=== PATIENT | female | born 1935 | race Caucasian/White ===

== ENCOUNTER → 2016-05-26 | Outpatient (REF) | payer MEDICARE ==
[~2016-05-26] MED LIST: /GLYB5TA OR; /METO25TAB PO; /MIRT30TA OR; ACET65TA OR; ALBU17IN2 INH; ALLE25CA OR; AMLO5TAB2 PO; ARIC10TA PO; ASPI81TA83 OR; ASPI81TA85 PO; BACITAB3 PO; BISA10SU2 PR; CARV3.12; CARV6.25 PO; CELE40TA OR; COLA100C PO; FERR325T OR; FLEEENE4 PR; FOLI1TAB86 PO; FOSI10TA2 OR; FURO40TA2 OR; GLYB2.5T6 OR; INSULANT SC; LEVA250T PO; METF500T PO; MILKSUS OR; OMEP20TA7 OR; ROSU10TA OR; SYMB80AE IN; TYLE325T5 PO; ULTR50TA PO; lidoderm patch TD; vitamin B12 PO
[2016-05-26 12:08] LABS: ALBUMIN 3.7 GM/DL (3.2-5.2); ALBUMIN/GLOBULIN RATIO 1.12 (1.00-1.93); BILIRUBIN,TOTAL 0.2 MG/DL (0.2-1.0); CALCIUM LEVEL 9.8 MG/DL (8.8-10.2); CREATININE FOR GFR 2.06 MG/DL (0.55-1.02); GLOMERULAR FILTRATION RATE 24.7 (>32); POTASSIUM SERUM 4.9 MEQ/L (3.5-5.1)
== END ==
LOC: M SFHCPLAZ 11:12
PROVIDERS: ATTEND Internal Medicine
DX: E11.9 Type 2 diabetes mellitus without complications (principal); E78.00 Pure hypercholesterolemia, unspecified; N18.3 Chronic kidney disease, stage 3 (moderate)

== ENCOUNTER → 2016-06-12 | Outpatient (CLI) | payer MEDICARE ==
--- NOTE | 2016-06-12 12:43 | REP ---
MRI LUMBAR SPINE WITHOUT CONTRAST: HISTORY: Back pain. Decreased signal intensity on T2-weighted images is present in the lumbar intervertebral discs. The discs are decreased in height. These findings are consistent with disc degeneration. A diffuse disc bulge with associated osteophyte formation is present at the L1-2 level. There is hypertrophy of the ligamenta flava and posterior articulating facets. These findings produce mild central canal stenosis. There is compression of the left L1 nerve in the neural foramen. The right L1 nerve exits the neural foramen without compression. A diffuse disc bulge with associated osteophyte formation is present at the L2-3 level. There is hypertrophy of the ligamenta flava and posterior articulating facets. These findings produce severe central canal stenosis. The L2 nerves exit the neural foramina without compression. A diffuse disc bulge is present at the L3-4 level. There is hypertrophy of the ligamenta flava and posterior articulating facets. These findings produce moderate central canal stenosis. There is compression of the L3 nerves in the neural foramina. A diffuse disc bulge is present at the L4-5 level. There is hypertrophy of the ligamenta flava and posterior articulating facets. There are 6 mm of grade 1 spondylolisthesis of L4 on L5. These findings produce severe central canal stenosis. There is compression of the L4 nerves in the neural foramina. A diffuse disc bulge is present at the L5-S1 level. This abuts the thecal sac and S1 nerves. There is hypertrophy of the posterior articulating facets. The L5 nerves exit the neural foramina without compression. The conus medullaris is normal in appearance terminating at the level of the L1-2 intervertebral disc. Normal signal intensity is present in the lumbar vertebral bodies. IMPRESSION: 1. Mild central canal stenosis at the L1-2 level secondary to disc bulge, ligamentous and facet hypertrophy and osteophyte formation. There is compression of the left L1 nerve in the neural foramen. 2. Severe central canal stenosis at the L2-3 level secondary to disc bulge, ligamentous and facet hypertrophy and osteophyte formation. 3. Moderate central canal stenosis at the L3-4 level secondary to disc bulge, ligamentous and facet hypertrophy. There is compression of the L3 nerves in the neural foramina. 4. Severe central canal stenosis at the L4-5 level secondary to disc bulge, ligamentous and facet hypertrophy and grade 1 spondylolisthesis. There is compression of the L4 nerves in the neural foramina. 5. Diffuse disc bulge at the L5 S1 level. This abuts the thecal sac and S1 nerves. Signed by Osvaldo Marin MD 06/12/2016 12:49 P
== END ==
LOC: M RAD 11:08
PROVIDERS: ATTEND Internal Medicine
DX: M54.5 Low back pain (principal)

== ENCOUNTER → 2016-08-31 | Outpatient (REF) | payer MEDICARE ==
[~2016-08-31] MED LIST changes: -COLA100C PO; +COLA100C3 PO
[2016-08-31 11:38] LABS: MEAN CORPUSCULAR HEMOGLOBIN 29.2 pg (27.0-33.0); MEAN CORPUSCULAR HGB CONC 32.2 g/dl (32.0-36.5); MEAN CORPUSCULAR VOLUME 90.7 fl (80.0-96.0); RED CELL DISTRIBUTION WIDTH 13.6 % (11.5-14.5); WHITE BLOOD COUNT 7.7 K/mm3 (4.0-10.0)
[2016-08-31 12:02] LABS: ALBUMIN 3.5 GM/DL (3.2-5.2); ALBUMIN/GLOBULIN RATIO 1.13 (1.00-1.93); BILIRUBIN,TOTAL 0.2 MG/DL (0.2-1.0); CALCIUM LEVEL 9.4 MG/DL (8.8-10.2); CREATININE FOR GFR 2.09 MG/DL (0.55-1.02); GLOMERULAR FILTRATION RATE 24.3 (>32); POTASSIUM SERUM 4.7 MEQ/L (3.5-5.1); TOTAL PROTEIN 6.6 GM/DL (6.4-8.2)
== END ==
LOC: M SFHCPLAZ 09:16
PROVIDERS: ATTEND Internal Medicine
DX: Z86.2 Personal history of diseases of the blood and blood-forming organs and certain disorders involving the immune mechanism (principal); E11.9 Type 2 diabetes mellitus without complications; E78.00 Pure hypercholesterolemia, unspecified; N18.4 Chronic kidney disease, stage 4 (severe)

== ENCOUNTER → 2016-12-13 | Outpatient (CLI) | payer MEDICARE ==
[~2016-12-13] MED LIST changes: +BACITAB PO; -BACITAB3 PO; -COLA100C3 PO; +COLA100C5 PO; +FOLI800C PO; +GLIP10TA6 PO; +LEVA1TAB PO; -LEVA250T PO; +METO1TAB32 PO; +NITR0.4S14 SL; +PANT40TA2 PO; +ROCA0.5C PO; +TOUJ1.2I; -ULTR50TA PO; +ULTR50TA8 PO
--- NOTE | 2016-12-13 11:34 | REP ---
Clinical: Diabetes. Technique: PA and lateral. Comparison: 07/14/2013. Findings: Mediastinum and cardiac silhouette are stable. Evidence of prior sternotomy, CABG, and aortic valve repair along with mild cardiomegaly. Lung marion demonstrate chronic changes. Blunting to the diaphragmatic surfaces and costophrenic angles may represent chronic changes however subtle small acute pleural reactions cannot be excluded. No focal consolidation. No pneumothorax. Skeletal structures demonstrate osteopenia and degenerative changes. Impression: Likely chronic changes as described above. If the patient is symptomatic consider chest CT for further investigation. Signed by Bay Mckay MD 12/13/2016 11:25 A
[2016-12-13 12:29] LABS: CALCIUM LEVEL 9.9 MG/DL (8.8-10.2); CREATININE FOR GFR 2.08 MG/DL (0.55-1.02); GLOMERULAR FILTRATION RATE 24.3 (>32); POTASSIUM SERUM 4.9 MEQ/L (3.5-5.1)
--- NOTE | 2016-12-13 18:25 | ECGEPIP ---
Stationary ECG Study [facility] Test Date: 2016-12-13 Pat Name: VANDA CLAY Department: OP Room: - Gender: F [employer] Division: [place] : 1935 Requested By: Santosh Hess Order Number: [id number] Reading MD: Daniel Perez Measurements Intervals [place] Rate: 58 P: 102 CA: 174 QRS: 109 QRSD: 137 T: 88 QT: 472 QTc: 465 Interpretive Statements Sinus bradycardia with sinus arrhythmia Left bundle branch block Slower heart rate and arrhythmia improved since prior tracing of 03/29/2014 Electronically Signed On 12-13-2016 18:25:02 EDT by Daniel Perez
== END ==
LOC: M LAB 10:46
PROVIDERS: ATTEND Ophthalmology
DX: E11.9 Type 2 diabetes mellitus without complications (principal)

== ENCOUNTER → 2016-12-20 | Outpatient (REF) | payer MEDICARE ==
[2016-12-20 18:46] LABS: MAGNESIUM LEVEL 1.2 MG/DL (1.8-2.4)
== END ==
LOC: M SFHCPLAZ 14:45
PROVIDERS: ATTEND Internal Medicine
DX: I12.9 Hypertensive chronic kidney disease with stage 1 through stage 4 chronic kidney disease, or unspecified chronic kidney disease (principal); E11.9 Type 2 diabetes mellitus without complications; N18.4 Chronic kidney disease, stage 4 (severe)
CPT/HCPCS: 36415; 82043; 83036; 83735; 83970; G0463

== ENCOUNTER 2017-01-11 13:33 | Day surgery (SDC) | payer MEDICARE ==
[~2017-01-11] VITALS: Ht 152.4 cm; Wt 68.0 kg
[~2017-01-11 13:33] MED LIST changes: +ACETAMINOPHEN 325 MG TAB PO PRN; +OFLOXACIN 0.3 % (OCUFLOX) OPTH SOL 5ML OS ONE; +PHENYLEPHRINE 2.5% OPHTH SOL 2ML OS ONE; +PROPARACAINE 0.5% OPHTH SOL 15ML OS ONE; +TROPICAMIDE 1% OPHTH SOLN 2ML OS ONE
[2017-01-11] MEDS ORDERED: LR 500 ML IV ONE (13:45)
[2017-01-11] MEDS ORDERED: TRIMETHOBENZAMIDE 300 MG CAP PO PRN (13:45)
[2017-01-11] MEDS ORDERED: MIDAZOLAM INJ 2 MG/2 ML VIAL (J2250) As Ordered ONE (14:42)
[2017-01-11] MEDS ORDERED: fentaNYL 100 MCG/2 ML INJECTION (J3010) As Ordered ONE (14:43)
[2017-01-11] MEDS ORDERED: BALANCED SALT IRRIGATION SOLUTION 500ML BAG (FOR OR EYE MACHINE) As Ordered ONE (14:55)
[2017-01-11] MEDS ORDERED: ACETYLCHOLINE OPHTH SOLN 1% 2ML (MIOCHOL-E) As Ordered ONE (14:55)
[2017-01-11] MEDS ORDERED: POVIDONE-IODINE 5% OPHTH PREP SOL 30ML As Ordered ONE (14:55)
[2017-01-11] MEDS ORDERED: DUOVISC (0.50ML VISCOAT/0.55ML PROVISC) OPHTH KIT As Ordered ONE ×2 (14:56→15:16)
[2017-01-11] MEDS ORDERED: LIDOCAINE 0.75%/EPINEPHRINE 0.025% IN BSS 1ML SYR INTRACAMERAL (OR ONLY) As Ordered ONE (14:56)
[2017-01-11] MEDS ORDERED: TRYPAN BLUE 0.06 % 2.25 ML OPHTH SYR (VISIONBLUE) As Ordered ONE ×2 (14:56→15:13)
[2017-01-11] MEDS ORDERED: KETAMINE HCL 200 MG/20 ML VIAL As Ordered ONE (15:30)
[2017-01-11 17:15] VITALS: BP 124/60
--- NOTE | 2017-01-15 08:02 | RO ---
DATE OF PROCEDURE: 01/11/2017 PREOPERATIVE DIAGNOSES: 1. Hypermature dense visually significant nuclear sclerotic cataract of the left eye. 2. Small pupil, left eye POSTOPERATIVE DIAGNOSES: 1. Hypermature dense visually significant nuclear sclerotic cataract of the left eye. 2. Small pupil, left eye PROCEDURE: Complex cataract extraction with placement of intraocular lens implant, AU00T0, 20.0 diopters, with use of Malyugin ring and trypan blue SURGEON: Benoit Irby DO PSYCH NURSE: ANESTHESIA: Local with MAC DESCRIPTION OF PROCEDURE: Patient was seen in the preoperative area. The consents were reviewed and the correct eye was marked. At that time, the patient received topical dilating drops and antibiotics to the left eye and the patient was transferred to the operating room. The eye was prepped and draped in the sterile fashion. Tegaderm tape was used to isolate the upper and lower eyelids and a wire lid speculum was used to retract the eyelids. At that time, a 1.0 mm paracentesis incision was made. Intraocular preservative free lidocaine was placed in the eye. Trypan blue was placed in the eye, and the BSS was used to clear the trypan blue. Appropriate staining of the anterior capsule was noted. Viscoelastic was then placed into the anterior chamber and a 2.4 mm temporal clear corneal incision was performed. At that time, a 7.0 mm Malyugin ring was placed to expand the pupil without difficulty. A bent 27 gauge cystitome was used to create a opening into the anterior capsule. At that time, capsulorrhexis forceps were used to carefully perform a continuous curvilinear capsulorrhexis, however visualization was poor and there were some minor anterior capsular tears noted. The decision was made to not perform hydrodissection. Phacoemulsification then pursued without difficulty, removing the dense crystalline lens. After the lens was removed, careful inspection of the capsular bag revealed an intact posterior capsule with small anterior capsular tear at 5 o'clock and 11 o'clock, but the remainder of the bag remained intact. There was no residual cortex. Viscoelastic was then injected carefully within the capsular bag and an AU00T0 20.0 diopter lens was injected within the capsular bag and then positioned appropriately. A single #10-0 nylon suture was placed in the temporal clear corneal incision. Bimanual irrigation and aspiration was used to remove the remaining viscoelastic from the anterior chamber. Miochol was placed showing a moderately small pupil and then BSS was used to hydrate the temporal clear corneal incision as well as the two paracentesis incisions. The patient tolerated the procedure well and was discharged to the postanesthesia care unit (PACU) in a stable condition. SILKE
== END 2017-01-11 17:10 | disposition home or self-care (01) ==
LOC: M SDC 13:33
PROVIDERS: ATTEND Ophthalmology
DX: H25.12 Age-related nuclear cataract, left eye (principal); H57.03 Miosis; E78.5 Hyperlipidemia, unspecified; E11.21 Type 2 diabetes mellitus with diabetic nephropathy; I25.10 Atherosclerotic heart disease of native coronary artery without angina pectoris; I25.2 Old myocardial infarction; I12.9 Hypertensive chronic kidney disease with stage 1 through stage 4 chronic kidney disease, or unspecified chronic kidney disease; D50.9 Iron deficiency anemia, unspecified; M12.9 Arthropathy, unspecified; R29.898 Other symptoms and signs involving the musculoskeletal system; M81.0 Age-related osteoporosis without current pathological fracture; F03.90 Unspecified dementia, unspecified severity, without behavioral disturbance, psychotic disturbance, mood disturbance, and anxiety; J44.9 Chronic obstructive pulmonary disease, unspecified; R06.02 Shortness of breath; M51.9 Unspecified thoracic, thoracolumbar and lumbosacral intervertebral disc disorder; N18.4 Chronic kidney disease, stage 4 (severe); R63.0 Anorexia; F41.9 Anxiety disorder, unspecified; F32.9 Major depressive disorder, single episode, unspecified; E78.00 Pure hypercholesterolemia, unspecified; I50.30 Unspecified diastolic (congestive) heart failure; L97.921 Non-pressure chronic ulcer of unspecified part of left lower leg limited to breakdown of skin; R10.30 Lower abdominal pain, unspecified; Z88.0 Allergy status to penicillin; Z88.2 Allergy status to sulfonamides; Z79.899 Other long term (current) drug therapy; Z79.82 Long term (current) use of aspirin; Z95.4 Presence of other heart-valve replacement; Z87.891 Personal history of nicotine dependence; Z96.653 Presence of artificial knee joint, bilateral; Z96.642 Presence of left artificial hip joint
CPT/HCPCS: 66982; J2250; J3010; V2632

== ENCOUNTER → 2017-02-01 | Outpatient (CLI) | payer MEDICARE ==
[~2017-02-01] MED LIST changes: -ACETAMINOPHEN 325 MG TAB PO PRN; -OFLOXACIN 0.3 % (OCUFLOX) OPTH SOL 5ML OS ONE; -PHENYLEPHRINE 2.5% OPHTH SOL 2ML OS ONE; -PROPARACAINE 0.5% OPHTH SOL 15ML OS ONE; -TROPICAMIDE 1% OPHTH SOLN 2ML OS ONE
--- NOTE | 2017-02-01 16:34 | REP ---
PA and lateral chest: Comparisons are 12/13/2078 06/19/2013. There is chronic blunting of the costophrenic angles, unchanged. This could be from pleural adhesions or chronic pleural effusions. The lung marion are clear and unchanged. Cardiac size is upper normal, unchanged. There are sternotomy wires and cardiac valve replacement, unchanged. Impression: There are chronic findings as described. No acute cardiopulmonary findings. Signed by Rolando Rothman MD 02/01/2017 04:25 P
== END ==
LOC: M RAD 15:45
PROVIDERS: ATTEND Physician Assistant Medical
DX: I50.21 Acute systolic (congestive) heart failure (principal); R93.8 Abnormal findings on diagnostic imaging of other specified body structures

== ENCOUNTER → 2017-02-01 | Outpatient (REF) | payer MEDICARE ==
[2017-02-01 18:42] LABS: MEAN CORPUSCULAR HEMOGLOBIN 29.6 pg (27.0-33.0); MEAN CORPUSCULAR HGB CONC 32.4 g/dl (32.0-36.5); MEAN CORPUSCULAR VOLUME 91.4 fl (80.0-96.0); PLATELET COUNT, AUTOMATED 218 10^3/uL (150-450); RED CELL DISTRIBUTION WIDTH 13.3 % (11.5-14.5); WHITE BLOOD COUNT 12.4 10^3/uL (4.0-10.0)
[2017-02-01 19:38] LABS: CALCIUM LEVEL 10.5 MG/DL (8.8-10.2); CREATININE FOR GFR 2.82 MG/DL (0.55-1.02); GLOMERULAR FILTRATION RATE 17.1 (>32); POTASSIUM SERUM 4.5 MEQ/L (3.5-5.1)
== END ==
LOC: M SFHCPLAZ 17:28
PROVIDERS: ATTEND Physician Assistant Medical
DX: I50.21 Acute systolic (congestive) heart failure (principal)

== ENCOUNTER → 2017-02-12 | Outpatient (REF) | payer MEDICARE ==
[2017-02-12 14:48] LABS: CALCIUM LEVEL 9.5 MG/DL (8.8-10.2); CREATININE FOR GFR 2.18 MG/DL (0.55-1.02); POTASSIUM SERUM 5.1 MEQ/L (3.5-5.1)
== END ==
LOC: M SFHCPLAZ 12:08
PROVIDERS: ATTEND Internal Medicine
DX: N18.4 Chronic kidney disease, stage 4 (severe) (principal)
CPT/HCPCS: 80048; G0463

== ENCOUNTER → 2017-03-29 | Day surgery (SDC) | payer MEDICARE ==
[~2017-03-29] VITALS: Ht 152.4 cm; Wt 65.7 kg
[~2017-03-29] MED LIST changes: +ACETAMINOPHEN 325 MG TAB PO PRN; +ACETYLCHOLINE OPHTH SOLN 1% 2ML (MIOCHOL-E) As Ordered ONE; +BALANCED SALT IRRIGATION SOLUTION 500ML BAG (FOR OR EYE MACHINE) As Ordered ONE; +CEFUROXIME 1MG/0.1ML INTRACAMERAL INJ As Ordered ONE; +DUOVISC (0.50ML VISCOAT/0.55ML PROVISC) OPHTH KIT As Ordered ONE; +LIDOCAINE 0.75%/EPINEPHRINE 0.025% IN BSS 1ML SYR INTRACAMERAL (OR ONLY) As Ordered ONE; +LIDOCAINE 1% SDV 5 ML VIAL As Ordered ONE; +MIDAZOLAM INJ 2 MG/2 ML VIAL (J2250) As Ordered ONE; +OFLOXACIN 0.3 % (OCUFLOX) OPTH SOL 5ML OD ONE; +PHENYLEPHRINE 2.5% OPHTH SOL 2ML OD ONE; +POVIDONE-IODINE 5% OPHTH PREP SOL 30ML As Ordered ONE; +PROPARACAINE 0.5% OPHTH SOL 15ML OD ONE; -TOUJ1.2I; +TOUJ1.2I SC; +TRIMETHOBENZAMIDE 300 MG CAP PO PRN; +TROPICAMIDE 1% OPHTH SOLN 2ML OD ONE; +fentaNYL 100 MCG/2 ML INJECTION (J3010) As Ordered ONE
[2017-03-29 09:05] VITALS: BP 123/63
--- NOTE | 2017-03-31 23:39 | RO ---
DATE OF PROCEDURE: 03/29/2017 PREOPERATIVE DIAGNOSIS: Visually significant nuclear sclerotic cataract right eye. POSTOPERATIVE DIAGNOSIS: Visually significant nuclear sclerotic cataract right eye. PROCEDURE: Cataract extraction with use of phacoemulsification and placement of intraocular lens, AU00T0 ,19.5 right eye. SURGEON: Benoit Irby DO TO[employer] BRIDGE OPERATOR: ANESTHESIA: Local with monitored anesthesia care (MAC). COMPLICATIONS: None. POSTOPERATIVE CONDITION: Stable. INDICATION FOR SURGERY: Blurred vision right eye affecting patient's activities of daily living. DESCRIPTION OF PROCEDURE: The patient was seen in the preoperative area and properly identified. The correct operative eye was identified and marked. Attention was turned to that eye. The patient received topical antibiotics in the preoperative area. The patient then received topical dilating drops consisting of tropicamide and phenylephrine. The patient was then transferred to the operating room. The correct side was re-identified. The patient received topical anesthetics and antibiotics on the surface of the eye. The eye was prepped and draped in a sterile fashion. The upper and lower eyelids were isolated with Tegaderm tape, and the lids were held open with an adjustable speculum. Using a sideport blade, a paracentesis incision was made. Intraocular preservative-free lidocaine was then injected into the anterior chamber. Viscoelastic was then injected into the anterior chamber through the paracentesis. Using a 2.4 mm sharp-tipped keratome, the anterior chamber was entered via a temporal clear corneal incision. A continuous curvilinear capsulorrhexis was created with the aid of a 26-gauge cystotome and Utrata forceps. Hydrodissection was performed with balanced salt solution (BSS) on a blunt cannula until the nucleus was freely mobile. The crystalline lens was phacoemulsified and aspirated. Additional cohesive viscoelastic was placed into the capsular bag to deepen it. A 19.5 lens was placed into the capsular bag and confirmed by visualizing the continuous curvilinear capsulorrhexis. Additional irrigation and aspiration was used to remove cortical material and remaining viscoelastic. The clear corneal incision was hydrated with BSS on a blunt cannula. The lens was well positioned. The incisions were then tested for leaks and found to be negative. The eye was then palpated for appropriate pressure and adjusted accordingly with BSS. The eyelid speculum was carefully removed. A shield was placed over the eye. The patient tolerated the procedure well and was discharged to the recovery unit in a stable condition. [facility]
--- NOTE | 2017-04-03 13:56 | RO ---
DATE OF PROCEDURE: 03/29/2017 PREOPERATIVE DIAGNOSIS: Visually significant nuclear sclerotic cataract right eye. POSTOPERATIVE DIAGNOSIS: Visually significant nuclear sclerotic cataract right eye. PROCEDURE: Cataract extraction with use of phacoemulsification and placement of intraocular lens, AU00T0 19.5, right eye. SURGEON: Benoit Irby DO RAG SHREDDER: ANESTHESIA: Local with monitored anesthesia care (MAC). COMPLICATIONS: None. POSTOPERATIVE CONDITION: Stable. INDICATION FOR SURGERY: Blurred vision right eye affecting patient's activities of daily living. DESCRIPTION OF PROCEDURE: The patient was seen in the preoperative area and properly identified. The correct operative eye was identified and marked. Attention was turned to that eye. The patient received topical antibiotics in the preoperative area. The patient then received topical dilating drops consisting of tropicamide and phenylephrine. The patient was then transferred to the operating room. The correct side was re-identified. The patient received topical anesthetics and antibiotics on the surface of the eye. The eye was prepped and draped in a sterile fashion. The upper and lower eyelids were isolated with Tegaderm tape, and the lids were held open with an adjustable speculum. Using a sideport blade, a paracentesis incision was made. Intraocular preservative-free lidocaine was then injected into the anterior chamber. Viscoelastic was then injected into the anterior chamber through the paracentesis. Using a 2.4 mm sharp-tipped keratome, the anterior chamber was entered via a temporal clear corneal incision. A continuous curvilinear capsulorrhexis was created with the aid of a 26-gauge cystotome and Utrata forceps. Hydrodissection was performed with balanced salt solution (BSS) on a blunt cannula until the nucleus was freely mobile. The crystalline lens was phacoemulsified and aspirated. Additional cohesive viscoelastic was placed into the capsular bag to deepen it. An AU00T0 lens was placed into the capsular bag and confirmed by visualizing the continuous curvilinear capsulorrhexis. Additional irrigation and aspiration was used to remove cortical material and remaining viscoelastic. The clear corneal incision was hydrated with BSS on a blunt cannula. The lens was well positioned. The incisions were then tested for leaks and found to be negative. The eye was then palpated for appropriate pressure and adjusted accordingly with BSS. The eyelid speculum was carefully removed. A shield was placed over the eye. The patient tolerated the procedure well and was discharged to the recovery unit in a stable condition. [facility]
== END | disposition home or self-care (01) ==
LOC: M SDC 07:03
PROVIDERS: ATTEND Ophthalmology
DX: H25.11 Age-related nuclear cataract, right eye (principal); I25.10 Atherosclerotic heart disease of native coronary artery without angina pectoris; I25.2 Old myocardial infarction; I11.0 Hypertensive heart disease with heart failure; I12.9 Hypertensive chronic kidney disease with stage 1 through stage 4 chronic kidney disease, or unspecified chronic kidney disease; E78.00 Pure hypercholesterolemia, unspecified; E11.22 Type 2 diabetes mellitus with diabetic chronic kidney disease; K21.9 Gastro-esophageal reflux disease without esophagitis; D64.9 Anemia, unspecified; M12.9 Arthropathy, unspecified; M51.9 Unspecified thoracic, thoracolumbar and lumbosacral intervertebral disc disorder; R29.898 Other symptoms and signs involving the musculoskeletal system; M81.0 Age-related osteoporosis without current pathological fracture; F41.9 Anxiety disorder, unspecified; F03.90 Unspecified dementia, unspecified severity, without behavioral disturbance, psychotic disturbance, mood disturbance, and anxiety; F32.9 Major depressive disorder, single episode, unspecified; J44.9 Chronic obstructive pulmonary disease, unspecified; N18.4 Chronic kidney disease, stage 4 (severe); D50.9 Iron deficiency anemia, unspecified; R63.0 Anorexia; Z88.0 Allergy status to penicillin; Z88.1 Allergy status to other antibiotic agents; Z88.2 Allergy status to sulfonamides; Z79.899 Other long term (current) drug therapy; Z79.82 Long term (current) use of aspirin; Z87.19 Personal history of other diseases of the digestive system; Z95.5 Presence of coronary angioplasty implant and graft; Z95.4 Presence of other heart-valve replacement; Z87.891 Personal history of nicotine dependence; Z96.653 Presence of artificial knee joint, bilateral; Z87.09 Personal history of other diseases of the respiratory system
CPT/HCPCS: 66984; J2250; J3010; V2632

== ENCOUNTER → 2017-04-27 | Outpatient (REF) | payer MEDICARE ==
[2017-04-27 12:02] LABS: HEMATOCRIT 39.1 % (36.0-47.0); HEMOGLOBIN 12.5 g/dl (12.0-16.0); MEAN CORPUSCULAR HEMOGLOBIN 28.5 pg (27.0-33.0); MEAN CORPUSCULAR VOLUME 89.3 fl (80.0-96.0); PLATELET COUNT, AUTOMATED 254 10^3/uL (150-450); RED BLOOD COUNT 4.38 10^6/uL (4.00-5.40); RED CELL DISTRIBUTION WIDTH 12.8 % (11.5-14.5); WHITE BLOOD COUNT 11.5 10^3/uL (4.0-10.0)
[2017-04-27 12:23] LABS: ALBUMIN 3.6 GM/DL (3.2-5.2); ALBUMIN/GLOBULIN RATIO 0.95 (1.00-1.93); ALKALINE PHOSPHATASE 87 U/L (45-117); ALT/SGPT 12 U/L (12-78); ANION GAP 8 MEQ/L (8-16); AST/SGOT 13 U/L (7-37); BILIRUBIN,TOTAL 0.3 MG/DL (0.2-1.0); BLOOD UREA NITROGEN 56 MG/DL (7-18); CALCIUM LEVEL 10.6 MG/DL (8.8-10.2); CARBON DIOXIDE LEVEL 30 MEQ/L (21-32); CHLORIDE LEVEL 100 MEQ/L (98-107); CHOLESTEROL LEVEL 180 MG/DL (<200); CHOLESTEROL RISK RATIO 5.294 (<5); GLOMERULAR FILTRATION RATE 20.6 (>32); GLUCOSE, FASTING 281 MG/DL (83-110); HDL CHOLESTEROL 34 MG/DL (>40); MAGNESIUM LEVEL 1.5 MG/DL (1.8-2.4); NON-HDL-C 146 MG/DL; POTASSIUM SERUM 5.1 MEQ/L (3.5-5.1); SODIUM LEVEL 138 MEQ/L (136-145); TOTAL PROTEIN 7.4 GM/DL (6.4-8.2); TRIGLYCERIDES LEVEL 340 MG/DL (<150)
[2017-04-27 12:48] LABS: PTH INTACT 59.6 PG/ML (14.0-72.0); VITAMIN B12 LEVEL 1060 PG/ML (247-911)
[2017-04-27 13:11] LABS: ESTIMATED AVERAGE GLUCOSE 220 MG/DL (60-110); HEMOGLOBIN A1c 9.3 %
== END ==
LOC: M SFHCPLAZ 10:13
DX: E11.21 Type 2 diabetes mellitus with diabetic nephropathy (principal); E11.22 Type 2 diabetes mellitus with diabetic chronic kidney disease; I12.9 Hypertensive chronic kidney disease with stage 1 through stage 4 chronic kidney disease, or unspecified chronic kidney disease; N18.4 Chronic kidney disease, stage 4 (severe); J44.9 Chronic obstructive pulmonary disease, unspecified; E78.00 Pure hypercholesterolemia, unspecified; E53.8 Deficiency of other specified B group vitamins; F03.90 Unspecified dementia, unspecified severity, without behavioral disturbance, psychotic disturbance, mood disturbance, and anxiety
CPT/HCPCS: 83735

== ENCOUNTER 2017-05-28 22:39 | Observation (INO) | payer MEDICARE ==
[2017-05-29] MEDS: NS 500 ML IV ×2
[2017-05-29 00:22] LABS: BASO % 0.1 % (0.0-1.0); EOS % 0.2 % (0.0-3.0); HEMOGLOBIN 13.5 g/dl (12.0-16.0); IMMATURE GRANULOCYTE % 0.5 % (0-3.0); LYMPH # 0.5 10^3/uL (1.5-4.5); LYMPH % 4.5 % (24.0-44.0); MEAN CORPUSCULAR HEMOGLOBIN 29.1 pg (27.0-33.0); MEAN CORPUSCULAR HGB CONC 32.1 g/dl (32.0-36.5); MEAN CORPUSCULAR VOLUME 90.5 fl (80.0-96.0); MONO # 0.1 10^3/uL (0.0-0.8); MONO % 0.5 % (0.0-5.0); NEUTROPHILS # 10.6 10^3/uL (1.8-7.7); NEUTROPHILS % 94.2 % (36.0-66.0); PLATELET COUNT, AUTOMATED 184 10^3/uL (150-450); RED BLOOD COUNT 4.64 10^6/uL (4.00-5.40); RED CELL DISTRIBUTION WIDTH 13.1 % (11.5-14.5); WHITE BLOOD COUNT 11.3 10^3/uL (4.0-10.0)
[2017-05-29 00:28] LABS: ALBUMIN 3.8 GM/DL (3.2-5.2); ALBUMIN/GLOBULIN RATIO 1.09 (1.00-1.93); ALKALINE PHOSPHATASE 101 U/L (45-117); ALT/SGPT 11 U/L (12-78); ANION GAP 12 MEQ/L (8-16); AST/SGOT 17 U/L (7-37); BILIRUBIN,DIRECT 0.2 MG/DL (0.0-0.2); BILIRUBIN,TOTAL 0.5 MG/DL (0.2-1.0); BLOOD UREA NITROGEN 48 MG/DL (7-18); CALCIUM LEVEL 9.9 MG/DL (8.8-10.2); CARBON DIOXIDE LEVEL 25 MEQ/L (21-32); CHLORIDE LEVEL 103 MEQ/L (98-107); CREATININE FOR GFR 2.65 MG/DL (0.55-1.30); FREE THYROXINE INDEX 2.4 % (1.3-4.8); GLOMERULAR FILTRATION RATE 18.4 (>32); GLUCOSE, FASTING 255 MG/DL (70-100); POTASSIUM SERUM 4.4 MEQ/L (3.5-5.1); SODIUM LEVEL 140 MEQ/L (136-145); T UPTAKE 33 % (30-39); THYROXINE (T4) 7.4 UG/DL (4.5-12.0); TOTAL PROTEIN 7.3 GM/DL (6.4-8.2)
[2017-05-29 00:28] LABS: AMMONIA 26 uMOL/L (<32)
[2017-05-29 00:46] LABS: AMORPHOUS SEDIMENT MODERATE (NEGATIVE); APPEARANCE, URINE CLOUDY (CLEAR); BACTERIA, URINE AUTO NEGATIVE (NEGATIVE); BILIRUBIN, URINE AUTO NEGATIVE (NEGATIVE); BLOOD, URINE BLOOD NEGATIVE (NEGATIVE); COLOR, URINE YELLOW (YELLOW); GLUCOSE, URINE (UA) AUTO 1+ mg/dL (NEGATIVE); KETONE, URINE AUTO NEGATIVE (NEGATIVE); LEUKOCYTE ESTERASE, URINE AUTO NEGATIVE (NEGATIVE); MUCUS, URINE SMALL (NEGATIVE); NITRITE, URINE AUTO NEGATIVE (NEGATIVE); PROTEIN, URINE AUTO 2+ mg/dL (NEGATIVE); RBC, URINE AUTO 0 /HPF (0-3); SPECIFIC GRAVITY URINE AUTO 1.015 (1.002-1.035); SQUAMOUS EPITHELIAL CELL UR AU 0 /HPF (0-6); UROBILINOGEN, URINE AUTO 0.2 mg/dL (0.0-2.0); WBC, URINE AUTO 1 /HPF (0-3)
[2017-05-29 01:19] LABS: ABG BASE EXCESS -2.1 (-2.0-2.0); ABG HCO3 22.2 MEQ/L (22.0-26.0); ABG O2 SATURATION 94.8 % (95.0-99.0); ABG PARTIAL PRESSURE CO2 36.2 mmHg (35.0-45.0); ABG STANDARD HCO3 22.7 MEQ/L (22.0-26.0); ABG TOTAL CO2 23.3 MEQ/L (23.0-31.0); ABG pH (ARTERIAL) 7.405 UNITS (7.350-7.450)
[2017-05-29 01:34] LABS: INFLUENZA A AMPLIFICATION NEGATIVE (NEGATIVE); INFLUENZA B AMPLIFICATION NEGATIVE (NEGATIVE)
[2017-05-29] MEDS ORDERED: GLUCAGON FOR INJ 1 MG VIAL (J1610) SC ×2 (02:30)
[2017-05-29] MEDS ORDERED: ALBUTEROL SULFATE 2.5 MG/0.5 ML INH NEB SOLN INH ×2 (02:30)
[2017-05-29] MEDS ORDERED: GLUCOSE 4 GM CHEW TABLET PO ×2 (02:30)
[2017-05-29] MEDS: NS 1,000 ML IV ×2 (02:30)
[2017-05-29] MEDS ORDERED: DEXTROSE 50% 50 ML SYRINGE IV ×2 (02:30)
[2017-05-29] MEDS ORDERED: NITROGLYCERIN 0.3 MG SUBL TAB SL ×2 (03:00)
[2017-05-29] MEDS ORDERED: POLYVINYL ALCOHOL OPHTH SOLN 15 ML(LIQUITEARS) OU ×2 (03:00)
[2017-05-29 04:12] LABS: LACTIC ACID SEPSIS PROTOCOL 4.1 MMOL/L (0.4-2.0)
[2017-05-29] MEDS: HEPARIN SOD (PORCINE) 5000 UNITS/ML VIAL SC ×6 (06:29→22:32)
[2017-05-29 07:23] LABS: LACTIC ACID SEPSIS PROTOCOL 1.4 MMOL/L (0.4-2.0)
[2017-05-29 09:07] LABS: BEDSIDE GLUCOSE 257 MG/DL (83-110)
[2017-05-29] MEDS: HumaLOG INSULIN (NovoLOG) PER UNIT SC ×8 (09:22→21:00)
[2017-05-29] MEDS: LEVEMIR (INSULIN DETEMIR) 1 UNITS/0.01ML SC ×2 (09:22)
[2017-05-29] MEDS: CALCITRIOL 0.25 MCG CAP (S0169) PO ×2 (09:22)
[2017-05-29] MEDS: PANTOPRAZOLE 40MG TAB (PROTONIX) PO ×2 (09:23)
[2017-05-29] MEDS: METOPROLOL SUCC *XL* 25MG TAB (TopROL *XL*) PO ×2 (09:23)
[2017-05-29] MEDS: CitaloPRAM (CeleXA) 20 MG TAB PO ×2 (09:23)
[2017-05-29] MEDS: CYANOCOBALAMIN 500 MCG TAB PO ×2 (09:24)
[2017-05-29] MEDS: ASPIRIN 81 MG ENTERIC TAB PO ×2 (09:24)
[2017-05-29] MEDS: ACETAMINOPHEN TAB 650MG DOSE (2X325MG) PO ×4 (10:06→22:32)
[2017-05-29 12:03] LABS: ANION GAP 11 MEQ/L (8-16); BLOOD UREA NITROGEN 49 MG/DL (7-18); CALCIUM LEVEL 9.3 MG/DL (8.8-10.2); CARBON DIOXIDE LEVEL 25 MEQ/L (21-32); CHLORIDE LEVEL 102 MEQ/L (98-107); CREATININE FOR GFR 2.73 MG/DL (0.55-1.30); GLOMERULAR FILTRATION RATE 17.8 (>32); GLUCOSE, FASTING 250 MG/DL (70-100); POTASSIUM SERUM 4.3 MEQ/L (3.5-5.1); SODIUM LEVEL 138 MEQ/L (136-145)
[2017-05-29] MEDS: ROSUVASTATIN 10 MG TAB (CRESTOR) PO ×2 (22:33)
[2017-05-29] MEDS: DONEPEZIL 5 MG TAB PO ×2 (22:33)
[2017-05-30] MEDS: HEPARIN SOD (PORCINE) 5000 UNITS/ML VIAL SC ×6 (05:34→21:38)
[2017-05-30 05:59] LABS: BEDSIDE GLUCOSE 158 MG/DL (83-110)
[2017-05-30 05:59] LABS: BEDSIDE GLUCOSE 244 MG/DL (83-110)
[2017-05-30 05:59] LABS: BEDSIDE GLUCOSE 76 MG/DL (83-110)
[2017-05-30 05:59] LABS: BEDSIDE GLUCOSE 213 MG/DL (83-110)
[2017-05-30 07:10] LABS: BASO % 0.1 % (0.0-1.0); EOS % 0.4 % (0.0-3.0); HEMATOCRIT 33.5 % (36.0-47.0); IMMATURE GRANULOCYTE % 0.6 % (0-3.0); LYMPH # 0.8 10^3/uL (1.5-4.5); LYMPH % 12.1 % (24.0-44.0); MEAN CORPUSCULAR HEMOGLOBIN 29.1 pg (27.0-33.0); MEAN CORPUSCULAR HGB CONC 32.2 g/dl (32.0-36.5); MEAN CORPUSCULAR VOLUME 90.3 fl (80.0-96.0); MONO # 0.5 10^3/uL (0.0-0.8); MONO % 6.5 % (0.0-5.0); NEUTROPHILS # 5.6 10^3/uL (1.8-7.7); NEUTROPHILS % 80.3 % (36.0-66.0); PLATELET COUNT, AUTOMATED 116 10^3/uL (150-450); RED BLOOD COUNT 3.71 10^6/uL (4.00-5.40); RED CELL DISTRIBUTION WIDTH 13.2 % (11.5-14.5); WHITE BLOOD COUNT 6.9 10^3/uL (4.0-10.0)
[2017-05-30 07:17] LABS: HEMOGLOBIN 10.8 g/dl (12.0-16.0)
[2017-05-30 07:28] LABS: ANION GAP 8 MEQ/L (8-16); BLOOD UREA NITROGEN 46 MG/DL (7-18); CALCIUM LEVEL 9.3 MG/DL (8.8-10.2); CARBON DIOXIDE LEVEL 24 MEQ/L (21-32); CHLORIDE LEVEL 108 MEQ/L (98-107); CREATININE FOR GFR 2.02 MG/DL (0.55-1.30); GLOMERULAR FILTRATION RATE 25.2 (>32); GLUCOSE, FASTING 85 MG/DL (70-100); MAGNESIUM LEVEL 1.7 MG/DL (1.8-2.4); POTASSIUM SERUM 3.9 MEQ/L (3.5-5.1); SODIUM LEVEL 140 MEQ/L (136-145)
[2017-05-30] MEDS: HumaLOG INSULIN (NovoLOG) PER UNIT SC ×8 (07:44→19:53)
[2017-05-30] MEDS: CYANOCOBALAMIN 500 MCG TAB PO ×2 (08:51)
[2017-05-30] MEDS: CALCITRIOL 0.25 MCG CAP (S0169) PO ×2 (08:51)
[2017-05-30] MEDS: CitaloPRAM (CeleXA) 20 MG TAB PO ×2 (08:51)
[2017-05-30] MEDS: LEVEMIR (INSULIN DETEMIR) 1 UNITS/0.01ML SC ×2 (08:51)
[2017-05-30] MEDS: PANTOPRAZOLE 40MG TAB (PROTONIX) PO ×2 (08:53)
[2017-05-30] MEDS: MAG SULF 1GM/100ML (MAG RUN) 1 GM in APPROPRIATE DILUENT 1 EA IV (08:54)
[2017-05-30] MEDS: ASPIRIN 81 MG ENTERIC TAB PO ×2 (08:54)
[2017-05-30] MEDS: METOPROLOL SUCC *XL* 25MG TAB (TopROL *XL*) PO ×2 (08:54)
[2017-05-30] MEDS: FUROSEMIDE 20 MG TAB PO ×2 (14:06)
[2017-05-30 17:44] LABS: BEDSIDE GLUCOSE 74 MG/DL (83-110)
[2017-05-30] MEDS: ACETAMINOPHEN TAB 650MG DOSE (2X325MG) PO ×2 (19:53)
[2017-05-30] MEDS: ROSUVASTATIN 10 MG TAB (CRESTOR) PO ×2 (19:58)
[2017-05-30] MEDS: DONEPEZIL 5 MG TAB PO ×2 (19:58)
[2017-05-30 22:12] LABS: BEDSIDE GLUCOSE 131 MG/DL (83-110)
[2017-05-31 00:19] LABS: BEDSIDE GLUCOSE 132 MG/DL (83-110)
[2017-05-31] MEDS: ACETAMINOPHEN TAB 650MG DOSE (2X325MG) PO ×2 (05:48)
[2017-05-31] MEDS: HEPARIN SOD (PORCINE) 5000 UNITS/ML VIAL SC ×2 (05:49)
[2017-05-31 07:12] LABS: BASO % 0.3 % (0.0-1.0); EOS # 0.2 10^3/uL (0.0-0.50); EOS % 2.6 % (0.0-3.0); HEMATOCRIT 36.5 % (36.0-47.0); HEMOGLOBIN 11.7 g/dl (12.0-16.0); IMMATURE GRANULOCYTE % 0.3 % (0-3.0); LYMPH # 0.9 10^3/uL (1.5-4.5); LYMPH % 14.8 % (24.0-44.0); MEAN CORPUSCULAR HEMOGLOBIN 29.2 pg (27.0-33.0); MEAN CORPUSCULAR HGB CONC 32.1 g/dl (32.0-36.5); MONO # 0.6 10^3/uL (0.0-0.8); MONO % 9.2 % (0.0-5.0); NEUTROPHILS # 4.4 10^3/uL (1.8-7.7); NEUTROPHILS % 72.8 % (36.0-66.0); PLATELET COUNT, AUTOMATED 132 10^3/uL (150-450); RED BLOOD COUNT 4.01 10^6/uL (4.00-5.40); RED CELL DISTRIBUTION WIDTH 13.2 % (11.5-14.5); WHITE BLOOD COUNT 6.1 10^3/uL (4.0-10.0)
[2017-05-31 07:46] LABS: ANION GAP 7 MEQ/L (8-16); BLOOD UREA NITROGEN 45 MG/DL (7-18); CARBON DIOXIDE LEVEL 28 MEQ/L (21-32); CHLORIDE LEVEL 105 MEQ/L (98-107); CREATININE FOR GFR 2.09 MG/DL (0.55-1.30); GLOMERULAR FILTRATION RATE 24.2 (>32); GLUCOSE, FASTING 83 MG/DL (70-100); MAGNESIUM LEVEL 1.7 MG/DL (1.8-2.4); SODIUM LEVEL 140 MEQ/L (136-145)
[2017-05-31] MEDS: HumaLOG INSULIN (NovoLOG) PER UNIT SC ×4 (08:14→11:57)
[2017-05-31] MEDS: LEVEMIR (INSULIN DETEMIR) 1 UNITS/0.01ML SC ×4 (09:00→12:00)
[2017-05-31] MEDS: CALCITRIOL 0.25 MCG CAP (S0169) PO ×2 (11:04)
[2017-05-31] MEDS: CYANOCOBALAMIN 500 MCG TAB PO ×2 (11:04)
[2017-05-31] MEDS: ASPIRIN 81 MG ENTERIC TAB PO ×2 (11:04)
[2017-05-31] MEDS: CitaloPRAM (CeleXA) 20 MG TAB PO ×2 (11:05)
[2017-05-31] MEDS: FUROSEMIDE 20 MG TAB PO ×2 (11:06)
[2017-05-31] MEDS: METOPROLOL SUCC *XL* 25MG TAB (TopROL *XL*) PO ×2 (11:06)
[2017-05-31] MEDS: PANTOPRAZOLE 40MG TAB (PROTONIX) PO ×2 (11:08)
[2017-06-01 02:10] LABS: BEDSIDE GLUCOSE 114 MG/DL (83-110)
== END 2017-05-31 13:10 | disposition home or self-care (01) ==
LOC: M MS5PR 05-29 13:35 → M ED INP 05-29 04:00 → M ED 22:39 → M ED INP 05-29 02:22 → M MS5PR 05-29 04:00
DX: F03.90 Unspecified dementia, unspecified severity, without behavioral disturbance, psychotic disturbance, mood disturbance, and anxiety (principal); R41.0 Disorientation, unspecified; R25.1 Tremor, unspecified; R53.1 Weakness; R50.9 Fever, unspecified; N28.9 Disorder of kidney and ureter, unspecified; N18.3 Chronic kidney disease, stage 3 (moderate); I13.0 Hypertensive heart and chronic kidney disease with heart failure and stage 1 through stage 4 chronic kidney disease, or unspecified chronic kidney disease; I25.10 Atherosclerotic heart disease of native coronary artery without angina pectoris; I50.9 Heart failure, unspecified; Z95.2 Presence of prosthetic heart valve; E11.22 Type 2 diabetes mellitus with diabetic chronic kidney disease; E78.5 Hyperlipidemia, unspecified; E53.8 Deficiency of other specified B group vitamins; M81.0 Age-related osteoporosis without current pathological fracture; K21.9 Gastro-esophageal reflux disease without esophagitis; E87.2 Acidosis; E83.42 Hypomagnesemia; D50.9 Iron deficiency anemia, unspecified; Z88.0 Allergy status to penicillin; Z88.2 Allergy status to sulfonamides; Z79.899 Other long term (current) drug therapy; Z79.82 Long term (current) use of aspirin; Z79.4 Long term (current) use of insulin; Z95.1 Presence of aortocoronary bypass graft; Z87.891 Personal history of nicotine dependence
CPT/HCPCS: J3475

== ENCOUNTER 2017-08-20 16:06 | Emergency (ER) | payer MEDICARE ==
[2017-08-20] MEDS: ACETAMINOPHEN TAB 650MG DOSE (2X325MG) PO (18:05)
== END 2017-08-20 18:06 | disposition home or self-care (01) ==
LOC: M ED 16:06
DX: G89.29 Other chronic pain (principal); M54.5 Low back pain; J44.9 Chronic obstructive pulmonary disease, unspecified; I11.0 Hypertensive heart disease with heart failure; E11.9 Type 2 diabetes mellitus without complications; I50.9 Heart failure, unspecified; E78.5 Hyperlipidemia, unspecified; I25.2 Old myocardial infarction; Z87.19 Personal history of other diseases of the digestive system; Z79.899 Other long term (current) drug therapy; Z79.82 Long term (current) use of aspirin; Z79.4 Long term (current) use of insulin; Z88.0 Allergy status to penicillin; Z88.1 Allergy status to other antibiotic agents; Z88.2 Allergy status to sulfonamides; Z87.891 Personal history of nicotine dependence
CPT/HCPCS: 99283

== ENCOUNTER → 2017-10-30 | Outpatient (REF) | payer MEDICARE ==
[2017-10-30 16:03] LABS: ALBUMIN 3.5 GM/DL (3.2-5.2); ALBUMIN/GLOBULIN RATIO 0.95 (1.00-1.93); ALKALINE PHOSPHATASE 96 U/L (45-117); ALT/SGPT 13 U/L (12-78); ANION GAP 7 MEQ/L (8-16); AST/SGOT 16 U/L (7-37); BILIRUBIN,TOTAL 0.3 MG/DL (0.2-1.0); BLOOD UREA NITROGEN 38 MG/DL (7-18); CALCIUM LEVEL 9.7 MG/DL (8.8-10.2); CARBON DIOXIDE LEVEL 29 MEQ/L (21-32); CHLORIDE LEVEL 105 MEQ/L (98-107); CHOLESTEROL LEVEL 177 MG/DL (<200); CHOLESTEROL RISK RATIO 4.425 (<5); CREATININE FOR GFR 2.05 MG/DL (0.55-1.30); GLOMERULAR FILTRATION RATE 24.7 (>32); GLUCOSE, FASTING 156 MG/DL (70-100); HDL CHOLESTEROL 40 MG/DL (>40); MAGNESIUM LEVEL 1.5 MG/DL (1.8-2.4); MEAN CORPUSCULAR HEMOGLOBIN 27.8 pg (27.0-33.0); MEAN CORPUSCULAR HGB CONC 30.8 g/dl (32.0-36.5); MEAN CORPUSCULAR VOLUME 90.3 fl (80.0-96.0); NON-HDL-C 137 MG/DL; PLATELET COUNT, AUTOMATED 255 10^3/uL (150-450); POTASSIUM SERUM 4.9 MEQ/L (3.5-5.1); RED BLOOD COUNT 4.32 10^6/uL (4.00-5.40); RED CELL DISTRIBUTION WIDTH 13.7 % (11.5-14.5); SODIUM LEVEL 141 MEQ/L (136-145); TOTAL PROTEIN 7.2 GM/DL (6.4-8.2); TRIGLYCERIDES LEVEL 230 MG/DL (<150); WHITE BLOOD COUNT 10.9 10^3/uL (4.0-10.0)
[2017-10-30 16:10] LABS: ESTIMATED AVERAGE GLUCOSE 212 MG/DL (60-110); PTH INTACT 95.9 PG/ML (18.5-88.0)
== END ==
LOC: M SFHCPLAZ 11:41
DX: I12.9 Hypertensive chronic kidney disease with stage 1 through stage 4 chronic kidney disease, or unspecified chronic kidney disease (principal); N18.4 Chronic kidney disease, stage 4 (severe); E11.21 Type 2 diabetes mellitus with diabetic nephropathy; E11.22 Type 2 diabetes mellitus with diabetic chronic kidney disease; Z86.2 Personal history of diseases of the blood and blood-forming organs and certain disorders involving the immune mechanism; E78.00 Pure hypercholesterolemia, unspecified
CPT/HCPCS: 83735

== ENCOUNTER → 2018-02-27 | Outpatient (CLI) | payer MEDICARE ==
[2018-02-27 14:32] LABS: ESTIMATED AVERAGE GLUCOSE 217 MG/DL (60-110); HEMOGLOBIN A1c 9.2 %
[2018-02-27 14:34] LABS: ALBUMIN 3.4 GM/DL (3.2-5.2); ALBUMIN/GLOBULIN RATIO 0.92 (1.00-1.93); ALKALINE PHOSPHATASE 108 U/L (45-117); ALT/SGPT 31 U/L (12-78); ANION GAP 5 MEQ/L (8-16); AST/SGOT 29 U/L (7-37); BILIRUBIN,TOTAL 0.3 MG/DL (0.2-1.0); BLOOD UREA NITROGEN 80 MG/DL (7-18); CALCIUM LEVEL 10.5 MG/DL (8.8-10.2); CARBON DIOXIDE LEVEL 28 MEQ/L (21-32); CHLORIDE LEVEL 104 MEQ/L (98-107); CREATININE FOR GFR 2.73 MG/DL (0.55-1.30); GLOMERULAR FILTRATION RATE 17.7 (>32); GLUCOSE, FASTING 331 MG/DL (70-100); POTASSIUM SERUM 4.5 MEQ/L (3.5-5.1); SODIUM LEVEL 137 MEQ/L (136-145); TOTAL PROTEIN 7.1 GM/DL (6.4-8.2)
[2018-02-27 14:45] LABS: PTH INTACT 70.4 PG/ML (18.5-88.0)
== END ==
LOC: M LAB 13:34
DX: Z00.00 Encounter for general adult medical examination without abnormal findings (principal); I12.9 Hypertensive chronic kidney disease with stage 1 through stage 4 chronic kidney disease, or unspecified chronic kidney disease; E11.21 Type 2 diabetes mellitus with diabetic nephropathy; N18.4 Chronic kidney disease, stage 4 (severe)
CPT/HCPCS: 80053

== ENCOUNTER → 2018-03-19 | Outpatient (CLI) | payer MEDICARE ==
[2018-03-19 12:48] LABS: HEMATOCRIT 41.5 % (36.0-47.0); HEMOGLOBIN 12.8 g/dl (12.0-15.5); MEAN CORPUSCULAR HEMOGLOBIN 27.7 pg (27.0-33.0); MEAN CORPUSCULAR HGB CONC 30.8 g/dl (32.0-36.5); MEAN CORPUSCULAR VOLUME 89.8 fl (80.0-96.0); PLATELET COUNT, AUTOMATED 212 10^3/uL (150-450); RED BLOOD COUNT 4.62 10^6/uL (4.00-5.40); RED CELL DISTRIBUTION WIDTH 13.6 % (11.5-14.5); WHITE BLOOD COUNT 8.9 10^3/uL (4.0-10.0)
[2018-03-19 13:14] LABS: ALBUMIN 3.6 GM/DL (3.2-5.2); ALKALINE PHOSPHATASE 86 U/L (45-117); ALT/SGPT 16 U/L (12-78); ANION GAP 7 MEQ/L (8-16); AST/SGOT 15 U/L (7-37); BILIRUBIN,TOTAL 0.3 MG/DL (0.2-1.0); BLOOD UREA NITROGEN 53 MG/DL (7-18); CALCIUM LEVEL 9.4 MG/DL (8.8-10.2); CARBON DIOXIDE LEVEL 28 MEQ/L (21-32); CHLORIDE LEVEL 107 MEQ/L (98-107); CHOLESTEROL LEVEL 154 MG/DL (<200); CHOLESTEROL RISK RATIO 4.529 (<5); CREATININE FOR GFR 2.25 MG/DL (0.55-1.30); GLOMERULAR FILTRATION RATE 22.2 (>32); GLUCOSE, FASTING 162 MG/DL (70-100); HDL CHOLESTEROL 34 MG/DL (>40); LDL CHOLESTEROL 82 MG/DL (<100); MAGNESIUM LEVEL 1.7 MG/DL (1.8-2.4); NON-HDL-C 120 MG/DL; POTASSIUM SERUM 4.5 MEQ/L (3.5-5.1); SODIUM LEVEL 142 MEQ/L (136-145); TOTAL PROTEIN 7.2 GM/DL (6.4-8.2); TRIGLYCERIDES LEVEL 190 MG/DL (<150)
[2018-03-19 13:21] LABS: PTH INTACT 184.1 PG/ML (18.5-88.0)
[2018-03-19 13:33] LABS: ESTIMATED AVERAGE GLUCOSE 232 MG/DL (60-110); HEMOGLOBIN A1c 9.7 %
[2018-03-19 13:59] LABS: MAU/CREAT RATIO 301.3 MCG/MG (0.0-30.0)
== END ==
LOC: M LAB 11:56
DX: N18.4 Chronic kidney disease, stage 4 (severe) (principal); Z86.2 Personal history of diseases of the blood and blood-forming organs and certain disorders involving the immune mechanism; I12.9 Hypertensive chronic kidney disease with stage 1 through stage 4 chronic kidney disease, or unspecified chronic kidney disease; E11.21 Type 2 diabetes mellitus with diabetic nephropathy; E78.00 Pure hypercholesterolemia, unspecified
CPT/HCPCS: 83735

== ENCOUNTER → 2018-04-22 | Outpatient (CLI) | payer MEDICARE ==
[~2018-04-22] MED LIST changes: -/MIRT30TA OR; +/MIRT30TA PO; +ACET-683 PO; -ACETAMINOPHEN 325 MG TAB PO PRN; -ACETYLCHOLINE OPHTH SOLN 1% 2ML (MIOCHOL-E) As Ordered ONE; +ARTI99.0 OU; +ASPI81TA24 PO; -BALANCED SALT IRRIGATION SOLUTION 500ML BAG (FOR OR EYE MACHINE) As Ordered ONE; -CEFUROXIME 1MG/0.1ML INTRACAMERAL INJ As Ordered ONE; -CELE40TA OR; +CELE40TA PO; -DUOVISC (0.50ML VISCOAT/0.55ML PROVISC) OPHTH KIT As Ordered ONE; +FOLI400T PO; +FURO20TA2 PO; +GLIP10TA18 PO; -LEVA1TAB PO; +LEVA250T13 PO; +LIDO2JELLY TOP; -LIDOCAINE 0.75%/EPINEPHRINE 0.025% IN BSS 1ML SYR INTRACAMERAL (OR ONLY) As Ordered ONE; -LIDOCAINE 1% SDV 5 ML VIAL As Ordered ONE; -MIDAZOLAM INJ 2 MG/2 ML VIAL (J2250) As Ordered ONE; -OFLOXACIN 0.3 % (OCUFLOX) OPTH SOL 5ML OD ONE; -PANT40TA2 PO; +PANT40TA3 PO; -PHENYLEPHRINE 2.5% OPHTH SOL 2ML OD ONE; -POVIDONE-IODINE 5% OPHTH PREP SOL 30ML As Ordered ONE; -PROPARACAINE 0.5% OPHTH SOL 15ML OD ONE; -ROSU10TA OR; +ROSU10TA PO; -TRIMETHOBENZAMIDE 300 MG CAP PO PRN; -TROPICAMIDE 1% OPHTH SOLN 2ML OD ONE; +TURM500C PO; +VITA10002 PO; -fentaNYL 100 MCG/2 ML INJECTION (J3010) As Ordered ONE
[2018-04-22 17:12] LABS: ALBUMIN 3.5 GM/DL (3.2-5.2); BILIRUBIN,TOTAL 0.2 MG/DL (0.2-1.0); CALCIUM LEVEL 10.4 MG/DL (8.8-10.2); CREATININE FOR GFR 1.74 MG/DL (0.55-1.30); GLOMERULAR FILTRATION RATE 29.8 (>32); MAGNESIUM LEVEL 1.8 MG/DL (1.8-2.4); POTASSIUM SERUM 5.3 MEQ/L (3.5-5.1); TOTAL PROTEIN 7.1 GM/DL (6.4-8.2)
[2018-04-22 17:20] LABS: PTH INTACT 67.1 PG/ML (18.5-88.0)
[2018-04-22 17:30] LABS: HEMATOCRIT 40.1 % (36.0-47.0); HEMOGLOBIN 12.5 g/dl (12.0-15.5); MEAN CORPUSCULAR HEMOGLOBIN 27.7 pg (27.0-33.0); MEAN CORPUSCULAR HGB CONC 31.2 g/dl (32.0-36.5); MEAN CORPUSCULAR VOLUME 88.7 fl (80.0-96.0); PLATELET COUNT, AUTOMATED 237 10^3/uL (150-450); RED BLOOD COUNT 4.52 10^6/uL (4.00-5.40); WHITE BLOOD COUNT 10.4 10^3/uL (4.0-10.0)
[2018-04-22 17:42] LABS: HEMOGLOBIN A1c 9.5 %
== END ==
LOC: M WUC 10:45
PROVIDERS: ATTEND Internal Medicine
DX: I12.9 Hypertensive chronic kidney disease with stage 1 through stage 4 chronic kidney disease, or unspecified chronic kidney disease (principal); E11.21 Type 2 diabetes mellitus with diabetic nephropathy; N18.4 Chronic kidney disease, stage 4 (severe); Z86.2 Personal history of diseases of the blood and blood-forming organs and certain disorders involving the immune mechanism

== ENCOUNTER → 2018-08-05 | Outpatient (REF) | payer MEDICARE ==
[~2018-08-05] MED LIST changes: -/GLYB5TA OR; -/METO25TAB PO; -/MIRT30TA PO; +ATOR1TAB21 PO; +CRES10TA32 PO; +GLYB1TAB29 OR; +HUMA100I5; +METO1TAB87 PO; +MIRT1TAB21 PO; +NITR25SU3 PO; -ROSU10TA PO
[2018-08-05 15:37] LABS: HEMATOCRIT 49.2 % (36.0-47.0); HEMOGLOBIN 15.1 g/dl (12.0-15.5); MEAN CORPUSCULAR HEMOGLOBIN 28.1 pg (27.0-33.0); MEAN CORPUSCULAR HGB CONC 30.7 g/dl (32.0-36.5); MEAN CORPUSCULAR VOLUME 91.6 fl (80.0-96.0); PLATELET COUNT, AUTOMATED 277 10^3/uL (150-450); RED BLOOD COUNT 5.37 10^6/uL (4.00-5.40); WHITE BLOOD COUNT 9.8 10^3/uL (4.0-10.0)
[2018-08-05 15:44] LABS: ALBUMIN 3.8 GM/DL (3.2-5.2); BILIRUBIN,TOTAL 0.4 MG/DL (0.2-1.0); CREATININE FOR GFR 2.24 MG/DL (0.55-1.30); GLOMERULAR FILTRATION RATE 22.3 (>32); MAGNESIUM LEVEL 1.8 MG/DL (1.8-2.4); POTASSIUM SERUM 4.7 MEQ/L (3.5-5.1); TOTAL PROTEIN 7.7 GM/DL (6.4-8.2)
[2018-08-05 15:52] LABS: PTH INTACT 120.4 PG/ML (18.5-88.0)
[2018-08-05 16:06] LABS: HEMOGLOBIN A1c 8.1 %
== END ==
LOC: M SFHCPLAZ 12:45
PROVIDERS: ATTEND Internal Medicine
DX: I12.9 Hypertensive chronic kidney disease with stage 1 through stage 4 chronic kidney disease, or unspecified chronic kidney disease (principal); N18.4 Chronic kidney disease, stage 4 (severe); Z86.2 Personal history of diseases of the blood and blood-forming organs and certain disorders involving the immune mechanism; E11.21 Type 2 diabetes mellitus with diabetic nephropathy; R41.82 Altered mental status, unspecified
CPT/HCPCS: 80053; 83036; 83735; 83970; 85027; G0463

== ENCOUNTER → 2018-08-06 | Outpatient (REF) | payer MEDICARE ==
[~2018-08-06] MED LIST changes: -ATOR1TAB21 PO; -HUMA100I5; -NITR25SU3 PO
[2018-08-06 12:49] LABS: APPEARANCE, URINE CLOUDY (CLEAR); BACTERIA, URINE AUTO 1+ (NEGATIVE); BILIRUBIN, URINE AUTO NEGATIVE (NEGATIVE); BLOOD, URINE BLOOD 1+ (NEGATIVE); COLOR, URINE YELLOW (YELLOW); GLUCOSE, URINE (UA) AUTO 3+ mg/dL (NEGATIVE); KETONE, URINE AUTO NEGATIVE (NEGATIVE); LEUKOCYTE ESTERASE, URINE AUTO 1+ (NEGATIVE); MUCUS, URINE SMALL (NEGATIVE); NITRITE, URINE AUTO NEGATIVE (NEGATIVE); PROTEIN, URINE AUTO 2+ mg/dL (NEGATIVE); RBC, URINE AUTO 4 /HPF (0-3); SPECIFIC GRAVITY URINE AUTO 1.016 (1.002-1.035); SQUAMOUS EPITHELIAL CELL UR AU 0 /HPF (0-6); UROBILINOGEN, URINE AUTO 0.2 mg/dL (0.0-2.0); WBC, URINE AUTO 9 /HPF (0-3)
== END ==
LOC: M SFHCPLAZ 11:56
PROVIDERS: ATTEND Internal Medicine
DX: R41.82 Altered mental status, unspecified (principal)

== ENCOUNTER 2018-08-10 13:19 | Inpatient (IN) | payer MEDICARE ==
[~2018-08-10] VITALS: Ht 149.9 cm; Wt 57.8 kg
[2018-08-10] MEDS ORDERED: NITR25SU3 PO (13:32)
[2018-08-10] MEDS ORDERED: HUMA100I5 (13:32)
[2018-08-10] MEDS ORDERED: NS 500 ML IV ONE (14:15)
[2018-08-10 14:17] LABS: BASO % 0.1 % (0.0-1.0); EOS % 0.2 % (0.0-3.0); HEMATOCRIT 51.6 % (36.0-47.0); HEMOGLOBIN 15.7 g/dl (12.0-15.5); LYMPH # 2.2 10^3/uL (1.5-4.5); LYMPH % 12.7 % (24.0-44.0); MEAN CORPUSCULAR HEMOGLOBIN 28.1 pg (27.0-33.0); MEAN CORPUSCULAR HGB CONC 30.4 g/dl (32.0-36.5); MEAN CORPUSCULAR VOLUME 92.5 fl (80.0-96.0); MONO # 1.3 10^3/uL (0.0-0.8); MONO % 7.7 % (0.0-5.0); NEUTROPHILS # 13.6 10^3/uL (1.8-7.7); NEUTROPHILS % 78.7 % (36.0-66.0); PLATELET COUNT, AUTOMATED 299 10^3/uL (150-450); RED BLOOD COUNT 5.58 10^6/uL (4.00-5.40); WHITE BLOOD COUNT 17.2 10^3/uL (4.0-10.0)
[2018-08-10 14:52] LABS: ALBUMIN 3.1 GM/DL (3.2-5.2); BILIRUBIN,DIRECT 0.1 MG/DL (0.0-0.2); BILIRUBIN,TOTAL 0.4 MG/DL (0.2-1.0); CALCIUM LEVEL 11.1 MG/DL (8.8-10.2); CREATININE FOR GFR 3.92 MG/DL (0.55-1.30); GLOMERULAR FILTRATION RATE 11.7 (>32); MB/CK RELATIVE INDEX 5.06 (< OR =4); POTASSIUM SERUM 4.9 MEQ/L (3.5-5.1); TOTAL PROTEIN 7.2 GM/DL (6.4-8.2); TROPONIN I 0.26 NG/ML (< 0.10)
[2018-08-10] MEDS ORDERED: HumuLIN R (REGULAR) INSULIN (NovoLIN R) **100U/ML** PER UNIT IV STA (15:13)
[2018-08-10] MEDS ORDERED: NS 1,000 ML IV SCH (16:00)
[2018-08-10] MEDS ORDERED: ROCA0.5C PO (16:09)
[2018-08-10] MEDS ORDERED: GLUCAGON FOR INJ 1 MG VIAL (J1610) SC PRN (16:30)
[2018-08-10] MEDS ORDERED: GLUCOSE 4 GM CHEW TABLET PO PRN (16:30)
[2018-08-10] MEDS ORDERED: DEXTROSE 50% 50 ML SYRINGE IV PRN (16:30)
[2018-08-10] MEDS ORDERED: ASPIRIN 81 MG CHEW TABLET PO ONE ×3 (17:00→20:00)
[2018-08-10] MEDS ORDERED: LEVEMIR (INSULIN DETEMIR) 1 UNITS/0.01ML SC ONE (17:00)
[2018-08-10 18:15] VITALS: BP 110/60
[2018-08-10 18:43] LABS: CREATININE FOR GFR 3.86 MG/DL (0.55-1.30); GLOMERULAR FILTRATION RATE 11.9 (>32); MB/CK RELATIVE INDEX 6.1 (< OR =4); POTASSIUM SERUM 4.2 MEQ/L (3.5-5.1); TROPONIN I 0.35 NG/ML (< 0.10)
[2018-08-10] MEDS: HumaLOG INSULIN (NovoLOG) PER UNIT SC SCH (18:51)
[2018-08-10] MEDS: METOPROLOL SUCC *XL* 25MG TAB (TopROL *XL*) PO SCH (18:52)
[2018-08-10] MEDS ORDERED: NS 0.45% 1,000 ML IV ONE (19:00)
[2018-08-10] MEDS ORDERED: ATORVASTATIN 20 MG TAB PO ONE (19:30)
[2018-08-10] MEDS ORDERED: ENOXAPARIN 60 MG/0.6 ML SYR (J1650) SC ONE (19:30)
[2018-08-10] MEDS ORDERED: CLOPIDOGREL 75 MG TAB PO ONE (19:30)
[2018-08-10 20:00] VITALS: BP 111/55
[2018-08-10] MEDS ORDERED: NS 0.45% 1,000 ML IV SCH (20:00)
[2018-08-10] MEDS ORDERED: D5W/0.45% SODIUM CHLORIDE 1,000 ML IV SCH (20:45)
--- NOTE | 2018-08-10 20:57 | HPEPDOC ---
[facility] Medical History & Physical Date of Admission August 10, 2018 History and Physical CHIEF COMPLAINT: "She was not eating, and has been going downhill." HISTORY OF PRESENTING ILLNESS: (Provided by and daughter at the bedside. pt is demented and confused at baseline.) Patient is an 82-year-old female DO NOT RESUSCITATE DO NOT INTUBATE who lives at home with her with PMHx significant for CAD s/p CABG (1998), AVR with a bioprosthetic (2013), CHF EF50% mildly reduced EF, Grade 1 diastolic dysfunction on a 05/[address] 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 No fever, chills,cough, rhinorrhea, nasal congestion, sob, dysuria, urgency, frequency, foul urine, nausea, vomiting, abdominal pain per the . Pt is usually able to eat sandwiches like grilled cheese per the . She has worsened in the past 3-4 days,prompting the family to see Dr. Perez with concerns that the pt may have a UTI. She was given macrodantin, received one dose without improvement, and progressive worsened , worrying the family further. In the ER, pt was found to be severely dehydrated with hy pernatremia 151-156, acute on ckd 4 with new gfr 11, and troponin 0.3 ckmb relative index of 6. Hospitalist was asked to admit as an inpatient for two midnights for acute uremic encephalopathy, acute on CKD5, Hypernatremia, Hyperglycemia, NSTEMI, and failure to thrive. PAST MEDICAL HISTORY: CAD s/p CABG (1998), AVR with a bioprosthetic (2013), CHF , HTN, IDDM2, DLP, CK3, MICHAEL, B12 Deficiency, Osteoporosis, GERD, Questionable history of COPD PAST SURGICAL HISTORY: AVR with a bioprosthetic (2013), Appendectomy, Left hip fracture 2014, Bilateral knee arthroplasty HOME MEDICATIONS: PLS SEE BELOW ALLERGIES: Penicillins (Unverified Allergy, Severe, 01/11/17) Cephalosporins (Verified Allergy, Unknown, SWELLING, 07/14/12) Sulfa Antibiotics (Unverified Allergy, Unknown, 01/11/17) FAMILY HISTORY: - Noncontributory given advanced age SOCIAL HISTORY - Denies the use of alcohol or illicit drugs; quit smoking in 1998. 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 - HEENT: NC, AT, PERRLA, unable to do EOM exam as pt is lethargic, no JVD, dry mucus membranes, chapped lips, edentulous - CVS: sinus tachycardia, +S1S2, no JVD - Lungs: Fair air entry bilaterally, no appreciable wheezing, rales or rhonchi - Abdomen: Soft, distented, Non-tender, + Bowel sounds x 4, no HSM - Extremities: No lower extremity edema, No calf tenderness - Neuro: lethargic, AAOx1, not following commands EKG: sinus tachycardia ventricular rate 128, First Degree AV block, LVH LABORATORY DATA, IMAGING STUDIES, MICROBIOLOGY: PLS SEE BELOW ASSESSMENT AND PLAN: Patient is an 82-year-old female DO NOT RESUSCITATE DO NOT INTUBATE who lives at home with her with PMHx significant for CAD s/p CABG (1998), AVR with a bioprosthetic (2013), CHF EF50% mildly reduced EF, Grade 1 diastolic dysfunction on a 05/[address] 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 No fever, chills,cough, rhinorrhea, nasal congestion, sob, dysuria, urgency, frequency, foul urine, nausea, vomiting, abdominal pain per the . Pt is usually able to eat sandwiches like grilled cheese per the . She has worsened in the past 3-4 days,prompting the family to see Dr. Perez with concerns that the pt may have a UTI. She was given macrodantin, received one dose without improvement, and progressive worsened , worrying the family further. In the ER, pt was found to be severely dehydrated with hypernat remia 151-156, acute on ckd 4 with new gfr 11, and troponin 0.3 ckmb relative index of 6. Hospitalist was asked to admit as an inpatient for two midnights for acute uremic encephalopathy, acute on CKD5, Hypernatremia, Hyperglycemia, NSTEMI, and failure to thrive. Acute Metabolic Encephalopathy in the setting of Chronic and progressive alzhiemer's Dementia - due to uremia with acute on CKD 5 in the setting of decreased oral intake, recent use of macrodantin in a ckd pt, NSTEMI, SIRS, dehydration/hypernatremia, and lactic acidosis - Patients and daughters had indicated that the patient has been confused for a very long time and has been diagnosed with Alzheimer's dementia - Upon questioning about what brought them , family stated that she was more confused for the past 2wks which worsened in the past 3-4 days. -They noted that she didn't make any sense when speaking, and has not been eating with increased sleepiness and lethargy. - s/p macrodantin given by PCP with sudden decompensation and progression of renal failure to stage 5 CKD. - Physical without any focal neurologic deficit - Ammonia level , ABG,Respiratory panel, CT Head are pending. - Urinalysis and CXR are without any evidence of infection - Previous CT head 05/28: No acute hemorrhage/infarct, findings consistent with age-related atrophy and chronic small vessel ischemic disease -aspiration risk, npo for now until swallow evaluation. hypoglycemic protocol while npo. keep HOB>30degrees. Fall precautions, and sitter until mentation improves. Acute on CKD5 with Uremic Encephalopathy - Creatinine baseline of approximately 2.1-2.4 - due to decreased oral intake, failure to thrive, and recent use of macrod antin. - no metabolic acidosis, fluid overload, hyperkalemia, but with significant uremic encephalopathy - ivfluid hydration with 1/2ns. - renally dose medications, strict i/o, [place] for 48hrs for critical patient monitoring, avoiding nephrotoxins - Family wants limited intervention of only IVFLUIDS, ANTIBIOTICS. No dialysis. Hypernatremia/ Dehydration -due to decreased oral intake, failure to thrive. Family reports no fluid losses in the form of vomiting or diarrhea. -goal Na change of 10-12 meq over 24 hrs to prevent significant fluid shifts; 141 by 13:30 08/11/18 to prevent central pontine myelinolysis. -serial metabolic panel and adjust 1/2 ns accordingly -causing significant mental status changes NSTEMI -history of CAD s/p CABG (1998) -Per and daughter at the bedside, conservative medical management. -Family wants limited intervention and does not want transfer to [place] for Left heart cath. -ASA, plavix, statin, beta miguel a, lovenox renally dosed -cycle cardiac markers and EKG. -repeat Echo HTN - Continue with metoprolol with holding parameters. - Will hold furosemide in light of acute on ckd5 and dehydration. AVR with a bioprosthetic (2013) - Not on any antiplatelet elevation CHF with mildly reduced EF EF 50%, Grade 1 diastolic dysfunction - Will re-order 2-D echocardiogram due to NSTEMI - currently with severe dehydraton and acute onCKD5 - hold diuretics. IDDM2, uncontrolled -resume basal insulin -hypoglycemic protocol while npo -check a1c DLP - Continue with statin Iron Deficiency Anemia / B12 Deficiency - Continue with supplementation once mentation improves. Osteoporosis -oupt fu Questionable history of COPD - Patients reports that shes never had a pulmonary function test - She rarely requires the use of albuterol - Does not use any other inhaled therapy -due to AMS, r/o acute respiratory acidosis with ABG -supplemental oxygen if o2 sat<88% GERD - Continue with PPI DVT prophylaxis - on Lovenox Diet: NPO due to aspiration risk from AMS CODE Status: DNR/DNI Vital Signs Vital Signs Date Time Temp Pulse Resp B/P (MAP) Pulse Ox O2 Delivery O2 Flow Rate FiO2 08/10/18 14:49 120 93 08/10/18 14:45 123/73 (90) 08/10/18 13:20 97.0 16 Room Air Laboratory Data Labs 24H Laboratory Tests 2 08/10/18 13:38: Immature Granulocyte % (Auto) 0.6, White Blood Count 17.2H, Red Blood Count 5.58H, Hemoglobin 15.7H, Hematocrit 51.6H, Mean Corpuscular Volume 92.5, Mean Corpuscular Hemoglobin 28.1, Mean Corpuscular Hemoglobin Concent 30.4L, Red Cell Distribution Width 14.0, Platelet Count 299, Neutrophils (%) (Auto) 78.7H, Lymphocytes (%) (Auto) 12.7L, Monocytes (%) (Auto) 7.7H, Eosinophils (%) (Auto) 0.2, Basophils (%) (Auto) 0.1, Neutrophils # (Auto) 13.6H, Lymphocytes # (Auto) 2.2, Monocytes # (Auto) 1.3H, Eosinophils # (Auto) 0.0, Basophils # (Auto) 0.0, Nucleated Red Blood Cells % (auto) 0.0, Anion Gap 9, Glomerular Filtration Rate 11.7L, Calcium Level 11.1H, Aspartate Amino Transf (AST/SGOT) 17, Alanine Aminotransferase (ALT/SGPT) 16, Alkaline Phosphatase 110, Total Bilirubin 0.4, Direct Bilirubin 0.1, Total Creatine Kinase 79, Creatine Kinase MB 4.0H, Creatine Kinase MB Relative Index 5.06H, Troponin I 0.26H, Total Protein 7.2, Albumin 3.1L, Albumin/Globulin Ratio 0.76L, Lipase 103 08/10/18 13:50: Lactic Acid Level 2.4*H 08/10/18 14:18: Urine Color YELLOW, Urine Appearance CLEAR, Urine pH 5.0, Urine Specific [place] 1.017, Urine Protein 1+H, Urine Glucose (UA) 2+H, Urine Ketones NEGATIVE, Urine Blood NEGATIVE, Urine Nitrite NEGATIVE, Urine Bilirubin NEGATIVE, Urine Urobilinogen 0.2, Urine Leukocyte Esterase NEGATIVE, Urine WBC (Auto) 1, Urine RBC (Auto) 2, Urine Hyaline Casts (Auto) 0, Urine Bacteria (Auto) NEGATIVE, Urine Squamous Epithelial Cells 0, Urine Amorphous Sediment SMALLH, Urine Mucus (Auto) SMALL, Urine Sperm (Auto) 08/10/18 14:24: Bedside Glucose (Misc Panel) 460H 08/10/18 15:48: CBC/BMP Laboratory Tests 08/10/18 13:38 Red Blood Count 5.58 H, Mean Corpuscular Volume 92.5, Mean Corpuscular Hemoglobin 28.1, Mean Corpuscular Hemoglobin Concent 30.4 L, Red Cell Distribution Width 14.0, Neutrophils (%) (Auto) 78.7 H, Lymphocytes (%) (Auto) 12.7 L, Monocytes (%) (Auto) 7.7 H, Eosinophils (%) (Auto) 0.2, Basophils (%) (Auto) 0.1, Neutrophils # (Auto) 13.6 H, Lymphocytes # (Auto) 2.2, Monocytes # (Auto) 1.3 H, Eosinophils # (Auto) 0.0, Basophils # (Auto) 0.0 Microbiology Microbiology 08/10/18 Blood Culture, Received Pending 08/10/18 Blood Culture, Received Pending Home Medications Scheduled Aspirin (Aspirin EC) 81 Mg Tab, 81 MG PO 3XW TAKE ON MONDAYS, WEDNESDAYS AND FRIDAYS IN THE MORNING Calcitriol (Rocaltrol) 0.5 Mcg Capsule, 0.5 MCG PO DAILY Insulin Glargine,Hum.rec.anlog (Toujeo Solostar) 300 Unit/Ml Inj, 22 UNITS SC D AILY Metoprolol Succinate (Metoprolol Succinate) 25 Mg Tab, 25 MG PO DAILY Nitrofurantoin (Nitrofurantoin) 25 Mg/5 Ml Oral.susp, 10 ML PO DAILY FOR 30 DAYS, STARTED 08/09 Scheduled PRN Nitroglycerin (Nitroglycerin) 0.4 Mg Sub, 0.4 MG SL Q5MP PRN for CHEST PAIN Allergies Coded Allergies: Cephalosporins (Verified Allergy, Unknown, UNKNOWN REACTION, 08/10/18) Penicillins (Verified Allergy, Unknown, UNKNOWN REACTION, 08/10/18) Sulfa (Sulfonamide Antibiotics) (Verified Allergy, Unknown, UNKNOWN REACTION, 08/10/18) A-FIB/CHADSVASC A-FIB History Current/History of A-Fib/PAF?: No Current Oral Anticoagulant The: No DUSTIN MORROW MD August 10, 2018 16:24
[2018-08-10] MEDS ORDERED: HumaLOG INSULIN (NovoLOG) PER UNIT SC SCH (21:00)
[2018-08-10] MEDS ORDERED: THIAMINE HCL 200 MG/2 ML VIAL (J3411) IM STA (21:13)
[2018-08-10 21:18] LABS: ABG BASE EXCESS -3.9 (-2.0-2.0); ABG HCO3 21.9 MEQ/L (22.0-26.0); ABG O2 SATURATION 96.5 % (95.0-99.0); ABG PARTIAL PRESSURE CO2 42.4 mmHg (35.0-45.0); ABG PARTIAL PRESSURE O2 90.1 mmHg (75.0-100.0); ABG STANDARD HCO3 21.2 MEQ/L (22.0-26.0); ABG TOTAL CO2 23.2 MEQ/L (23.0-31.0)
--- NOTE | 2018-08-10 21:27 | TRANSCARE ---
Transition of Care: Transition of Care Was contacted by nursing as pt has elevated trop at 0.35 trending up from 0.[address] depression. One time dose 243 mg Aspirin given in addition to 81mg received in the evening to make it 324mg Aspirin for tonight. Went to bedside to examine the patient and investigated tele monitor with atte misti. It is noted that pt has MARIA ESTHER on CKD. Stat EKG showed no significant changes compared to prior EKG, and the elevated trop is likely 2/2 MARIA ESTHER on CKD. It is noted that patient has elevated Na at 156 at 1803 and Na at 151 at 1338. Pt already received 1.5L NS and 1L 1/2NS and was on 1/2NS at rate of 100ml per hours. Will switch pt to D5 1/2NS at rate of 50ml per hour. Pt responsive to name but not answering any questions or command at the time of the examination, family reported she presented to ER like this. CT head without contrast, ammonia, ABG, MRSA screen, and lactic acid level was ordered by betsy. F/u with BMP and cardiac marker tonight. Fall precaution and thiamine IM ordered. GME ATTESTATION GME ATTESTATION My faculty preceptor for this patient encounter was physically present during the encounter and was fully available. All aspects of the patient interview, examination, medical decision making process, and medical care plan development were reviewed and approved by the faculty preceptor. The faculty preceptor is aware and concurs with the plan as stated in the body of this note and will attest to such by his/her cosignature. NELLY GONZALES DO August 10, 2018 21:27
[2018-08-10 21:51] VITALS: BP 110/64
--- NOTE | 2018-08-10 22:01 | REPVR ---
EXAM: CT Head Without Contrast EXAM DATE/TIME: 08/10/2018 9:15 PM CLINICAL HISTORY: 82 years old, female; Signs and symptoms; Altered mental status/memory loss; Additional info: AMS TECHNIQUE: Imaging protocol: Axial computed tomography images of the head/brain without contrast. Radiation optimization: All CT scans at this facility use at least one of these dose optimization techniques: automated exposure control; mA and/or kV adjustment per patient size (includes targeted exams where dose is matched to clinical indication); or iterative reconstruction. COMPARISON: CT Head without contrast 05/29/2017 12:01 AM FINDINGS: Brain: Global cerebral atrophy is consistent with patient's age. Decreased attenuation within the white matter tracts of both cerebral hemispheres is nonspecific but typically seen with small vessel disease/chronic white matter ischemic changes of aging. No intracranial hemorrhage or mass effect. Ventricles: Mild ventriculomegaly, consistent with global cerebral atrophy. Bones/joints: Unremarkable. No acute fracture. Sinuses: Visualized sinuses are unremarkable. No acute sinusitis. Mastoid air cells: Visualized mastoid air cells are unremarkable. No mastoid effusion. Soft tissues: Unremarkable. Vasculature: Atherosclerosis of the cavernous carotid arteries. IMPRESSION: No acute abnormality. Electronically signed by: Edward Leiva On 08/10/2018 22:01:08 PM
[2018-08-10 23:34] LABS: CALCIUM LEVEL 10.3 MG/DL (8.8-10.2); CREATININE FOR GFR 3.47 MG/DL (0.55-1.30); GLOMERULAR FILTRATION RATE 13.4 (>32); MB/CK RELATIVE INDEX 9.12 (< OR =4); POTASSIUM SERUM 4.3 MEQ/L (3.5-5.1); TROPONIN I 1.21 NG/ML (< 0.10)
[2018-08-10 23:59] VITALS: BP 103/64
[2018-08-11] VITALS (22 sets, daily range): BP systolic 110–134; BP diastolic 58–63; O2SAT 93–97
[2018-08-11 05:32] LABS: HEMATOCRIT 44.9 % (36.0-47.0); HEMOGLOBIN 13.8 g/dl (12.0-15.5); MEAN CORPUSCULAR HEMOGLOBIN 28.4 pg (27.0-33.0); MEAN CORPUSCULAR HGB CONC 30.7 g/dl (32.0-36.5); MEAN CORPUSCULAR VOLUME 92.4 fl (80.0-96.0); PLATELET COUNT, AUTOMATED 224 10^3/uL (150-450); RED BLOOD COUNT 4.86 10^6/uL (4.00-5.40); WHITE BLOOD COUNT 12.7 10^3/uL (4.0-10.0)
[2018-08-11 05:44] LABS: CALCIUM LEVEL 10.4 MG/DL (8.8-10.2); CREATININE FOR GFR 3.23 MG/DL (0.55-1.30); GLOMERULAR FILTRATION RATE 14.6 (>32); POTASSIUM SERUM 4.2 MEQ/L (3.5-5.1)
[2018-08-11 05:50] LABS: MB/CK RELATIVE INDEX 12.95 (< OR =4); TROPONIN I 7.87 NG/ML (< 0.10)
[2018-08-11] MEDS ORDERED: D5W/0.45% SODIUM CHLORIDE 1,000 ML IV ONE ×2 (06:30→17:30)
[2018-08-11] MEDS ORDERED: HEPARIN SOD (PORCINE) 5000 UNITS/ML VIAL IV ONE ×2 (06:45)
--- NOTE | 2018-08-11 06:57 | TRANSCARE ---
Transition of Care: Transition of Care NSTEMI. Most recent trop 7.87 on 08/11/18 at 0447, significantly increased from the last one prior at 1.21. A 324mg PO Aspirin ordered as of 08/10/18 night; pt already anticoagulated on lovenox SC 50mg Q24h renally dose based on creatinine clearance as well as Plavix. On tele monitor and atorvastatin 40mg QD. Pt is minimally arousable which family at bedside overnight reported she presented the same while in ER. There was questionable A.fib on tele overnight with HR fluctuates in between high 90s to low 100s; other vital signs roughly stable. EKG and tele strips were reviewed with night attending with no obvious a. fib noted. Trend cardiac marker; PT/PTT and cont pulse ox ordered. [employer] consult ordered after calling on-call director broadcast Dr. Quevedo right after most recent trop result returned. Neuro check as scheduled. GME ATTESTATION GME ATTESTATION My faculty preceptor for this patient encounter was physically present during the encounter and was fully available. All aspects of the patient interview, examination, medical decision making process, and medical care plan development were reviewed and approved by the faculty preceptor. The faculty preceptor is aware and concurs with the plan as stated in the body of this note and will attest to such by his/her cosignature. NELLY GONZALES DO August 11, 2018 06:57
[2018-08-11] MEDS: HumaLOG INSULIN (NovoLOG) PER UNIT SC SCH ×4 (07:30→23:54)
[2018-08-11] MEDS ORDERED: FLEET ENEMA PR ONE (08:00)
--- NOTE | 2018-08-11 08:04 | REP ---
ABDOMINAL SERIES: Cross table lateral and supine films of the abdomen and pelvis demonstrate no definite evidence of free intraperitoneal air. Air is scattered throughout the GI tract in a nonspecific pattern without significant small bowel dilatation and no compelling evidence for small bowel obstruction. There are diffuse vascular calcifications. Degenerative changes of the spine are noted as well as metallic internal fixation in the proximal left femur. An accompanying view of the chest demonstrates no acute infiltrate. Heart is not significantly enlarged. There is calcification of the thoracic aorta. Multiple sternal wires are present. IMPRESSION: No evidence of free intraperitoneal air and no compelling evidence for small bowel obstruction. No infiltrate in either lung. Electronically Signed by Rolando Coello MD 08/11/2018 11:28 A
[2018-08-11 08:12] LABS: MAGNESIUM LEVEL 2.2 MG/DL (1.8-2.4)
[2018-08-11] MEDS ORDERED: AMIODARONE HCL 150 MG in APPROPRIATE DILUENT 1 EA IV STA (08:18)
[2018-08-11] MEDS ORDERED: CALCITRIOL 0.25 MCG CAP (S0169) PO SCH (09:00)
[2018-08-11] MEDS: METOPROLOL SUCC *XL* 25MG TAB (TopROL *XL*) PO SCH (09:00)
[2018-08-11] MEDS: ATORVASTATIN 20 MG TAB PO SCH (09:00)
[2018-08-11] MEDS ORDERED: ASPIRIN 81 MG ENTERIC TAB PO SCH (09:00)
[2018-08-11] MEDS: CLOPIDOGREL 75 MG TAB PO SCH (09:00)
[2018-08-11] MEDS ORDERED: D5W/0.45% SODIUM CHLORIDE 1,000 ML IV SCH (11:00)
--- NOTE | 2018-08-11 11:35 | IPNPDOC ---
Date Seen The patient was seen on 08/11/18. Progress Note SUBJECTIVE: Pt remains encephalopathic not following commands, but with some purposeful movements. and daughter at the bedside. She denies any chest pain, pressure, tightness, sob. s/p 3 liters ivfluids with na 156 this am. due to dysphagia, po meds held. asa given per rectum and lovenox renally dosed sq continued. pt's family are realistic about grim prognosis, but want to continue supportive care. THey, however, do not want anything invasive, and refused transfer to [facility] for NSTEMI. Troponin still climbing. Tele: Vtach s/p one dose iv amiodarone. Afib w rvr last night requiring cardizem q6hrs with improvement, but now unable to take anything orally due to ams and risk of aspiration. CT head: no CVA. OBJECTIVE: PHYSICAL EXAMINATION: - Vitals: pls see below - General: Lying on a stretcher, AAOx 1 person only, does not follow commands, mumbling, and noncoherent. - HEENT: NC, AT, PERRLA, unable to do EOM exam as pt is lethargic, no JVD, dry mucus membranes, chapped lips, edentulous - CVS: sinus tachycardia, +S1S2, no JVD - Lungs: Fair air entry bilaterally, no appreciable wheezing, rales or rhonchi - Abdomen: Soft, distented, Non-tender, + Bowel sounds x 4, no HSM - Extremities: No lower extremity edema, No calf tenderness - Neuro: lethargic, AAOx1, not following commands EKG: sinus tachycardia ventricular rate 128, First Degree AV block, LVH LABORATORY DATA, IMAGING STUDIES, MICROBIOLOGY: PLS SEE BELOW ASSESSMENT AND PLAN: Patient is an 82-year-old female DO NOT RESUSCITATE DO NOT INTUBATE who lives at home with her with PMHx significant for CAD s/p CABG (1998), AVR with a bioprosthetic (2013), CHF EF50% mildly reduced EF, Grade 1 diastolic dysfunction on a 05/[address] 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 No fever, chills,cough, rhinorrhea, nasal congestion, sob, dysuria, urgency, frequency, foul urine, nausea, vomiting, abdominal pain per the . Pt is usually able to eat sandwiches like grilled cheese per the . She has worsened in the past 3-4 days,prompting the family to see Dr. Perez with concerns that the pt may have a UTI. She was given macrodantin, received one dose without improvement, and progressive worsened , worrying the family further. In the ER, pt was found to be severely dehydrated with hypernatremia 151-156, acute on ckd 4 with new gfr 11, and troponin 0.3 ckmb relative index of 6. Hospitalist was asked to admit as an inpatient for two midnights for acute uremic encephalopathy, acute on CKD5, Hypernatremia, Hyperglycemia, NSTEMI, and failure to thrive. Acute Metabolic Encephalopathy in the setting of Chronic and progressive alzhiemer's Dementia - due to uremia with acute on CKD 5 in the setting of decreased oral intake, recent use of macrodantin in a ckd pt, NSTEMI, SIRS, dehydration/hypernatremia, and lactic acidosis - Patients and daughters had indicated that the patient has been confused for a very long time and has been diagnosed with Alzheimer's dementia - Upon questioning about what brought them , family stated that she was more confused for the past 2wks which worsened in the past 3-4 days. -They noted that she didn't make any sense when speaking, and has not been eating with increased sleepiness and lethargy. - s/p macrodantin given by PCP with sudden decompensation and progression of renal failure to stage 5 CKD. - Physical without any focal neurologic deficit - Ammonia level , ABG,Respiratory panel, CT Head are pending. - Urinalysis and CXR are without any evidence of infection - Previous CT head 05/28: No acute hemorrhage/infarct, findings consistent with age-related atrophy and chronic small vessel ischemic disease -aspiration risk, npo for now until swallow evaluation. hypoglycemic protocol while npo. keep HOB>30degrees. Fall precautions, and sitter until mentation improves. Acute on CKD5 with Uremic Encephalopathy - Creatinine baseline of approximately 2.1-2.4 - due to decreased oral intake, failure to thrive, and recent use of macrodantin. - no metabolic acidosis, fluid overload, hyperkalemia, but with significant uremic encephalopathy - ivfluid hydration with d51/2 ns - renally dose medications, strict i/o, [place] for 48hrs for critical patient monitoring, avoiding nephrotoxins - Family wants limited intervention of only IVFLUIDS, ANTIBIOTICS. No dialysis. Hypernatremia/ Dehydration -due to decreased oral intake, failure to thrive. Family reports no fluid losses in the form of vomiting or diarrhea. -goal Na change of 10-12 meq over 24 hrs to prevent significant fluid shifts; 1 41 by 13:30 08/11/18 to prevent central pontine myelinolysis. -serial metabolic panel and adjust d51/2/ns accordingly -causing significant mental status changes -aspiration risk Aspiration risk -due to ams from uremia with acute on CKD 5 in the setting of decreased oral intake, recent use of macrodantin in a ckd pt, NSTEMI, SIRS, dehydration/hypernatremia, and lactic acidosis NSTEMI -history of CAD s/p CABG (1998) -Per and daughter at the bedside, conservative medical management. -Family wants limited intervention and does not want transfer to [facility] for Left heart cath. -ASA, plavix, statin, beta miguel a, lovenox renally dosed on admission -due to ams and aspiration risk, ASA changed to MA, plavix and beta miguel a held, and continued on lovenox sq on 08/11/18. -cycle cardiac markers and EKG. -repeat Echo -Sulfur Chloride Operator: Dr. Quevedo no new recommendations Constipation -bowel regimen w enema due to aspiration risk HTN - s/p metoprolol , unable to take po meds due to aspiration risk - Will hold furosemide in light of acute on ckd5 and dehydration. AVR with a bioprosthetic (2013) - Not on any antiplatelet elevation CHF with mildly reduced EF EF 50%, Grade 1 diastolic dysfunction - Will re-order 2-D echocardiogram due to NSTEMI - currently with severe dehydraton and acute onCKD5 - hold diuretics. IDDM2, uncontrolled -resume basal insulin -hypoglycemic protocol while npo -check a1c DLP - Continue with statin Iron Deficiency Anemia / B12 Deficiency - Continue with supplementation once mentation improves. Osteoporosis -oupt fu Questionable history of COPD - Patients reports that shes never had a pulmonary function test - She rarely requires the use of albuterol - Does not use any other inhaled therapy -due to AMS, r/o acute respiratory acidosis with ABG -supplemental oxygen if o2 sat<88% GERD - Continue with PPI DVT prophylaxis - on Lovenox Diet: NPO due to aspiration risk from AMS CODE Status: DNR/DNI A-FIB/CHADSVASC A-FIB History Current/History of A-Fib/PAF?: No Current Oral Anticoagulant The: No VS, I&O, 24H, Fishbone Vital Signs/I&O Vital Signs Date Time Temp Pulse Resp B/P (MAP) Pulse Ox O2 Delivery O2 Flow Rate FiO2 08/11/18 04:00 97.4 66 20 133/59 (83) 94 08/10/18 21:51 1.0 08/10/18 18:04 Room Air I&O- Last 24 Hours up to 6 AM 08/11/18 06:00 Intake Total 1700 ml Output Total 300 ml Balance 1400 ml Laboratory Data 24H LABS Laboratory Tests 2 08/10/18 13:38: Immature Granulocyte % (Auto) 0.6, White Blood Count 17.2H, Red Blood Count 5.58H, Hemoglobin 15.7H, Hematocrit 51.6H, Mean Corpuscular Volume 92.5, Mean Corpuscular Hemoglobin 28.1, Mean Corpuscular Hemoglobin Concent 30.4L, Red Cell Distribution Width 14.0, Platelet Count 299, Neutrophils (%) (Auto) 78.7H, Lymphocytes (%) (Auto) 12.7L, Monocytes (%) (Auto) 7.7H, Eosinophils (%) (Auto) 0.2, Basophils (%) (Auto) 0.1, Neutrophils # (Auto) 13.6H, Lymphocytes # (Auto) 2.2, Monocytes # (Auto) 1.3H, Eosinophils # (Auto) 0.0, Basophils # (Auto) 0.0, Nucleated Red Blood Cells % (auto) 0.0, Anion Gap 9, Glomerular Filtration Rate 11.7L, Calcium Level 11.1H, Aspartate Amino Transf (AST/SGOT) 17, Alanine Aminotransferase (ALT/SGPT) 16, Alkaline Phosphatase 110, Total Bilirubin 0.4, Direct Bilirubin 0.1, Total Creatine Kinase 79, Creatine Kinase MB 4.0H, Creatine Kinase MB Relative Index 5.06H, Troponin I 0.26H, Total Protein 7.2, Albumin 3.1L, Albumin/Globulin Ratio 0.76L, Lipase 103 08/10/18 13:50: Lactic Acid Level 2.4*H 08/10/18 14:18: Urine Color YELLOW, Urine Appearance CLEAR, Urine pH 5.0, Urine Specific [place] 1.017, Urine Protein 1+H, Urine Glucose (UA) 2+H, Urine Ketones NEGATIVE, Urine Blood NEGATIVE, Urine Nitrite NEGATIVE, Urine Bilirubin NEGATIVE, Urine Urobilinogen 0.2, Urine Leukocyte Esterase NEGATIVE, Urine WBC (Auto) 1, Urine RBC (Auto) 2, Urine Hyaline Casts (Auto) 0, Urine Bacteria (Auto) NEGATIVE, Urine Squamous Epithelial Cells 0, Urine Amorphous Sediment SMALLH, Urine Mucus (Auto) SMALL, Urine Sperm (Auto) 08/10/18 14:24: Bedside Glucose (Misc Panel) 460H 08/10/18 15:48: Osmolality 396H 08/10/18 17:17: Bedside Glucose (Misc Panel) 291H 08/10/18 18:03: Anion Gap 6L, Glomerular Filtration Rate 11.9L, Blood Urea Nitrogen 147H, Creatinine 3.86H, Sodium Level 156H, Potassium Level 4.2, Chloride Level 123H, Carbon Dioxide Level 27, Calcium Level 11.0H, Total Creatine Kinase 77, Creatine Kinase MB 5.0H, Creatine Kinase MB Relative Index 6.10H, Troponin I 0.35#H 08/10/18 18:20: Bedside Glucose (Misc Panel) 259H 08/10/18 19:13: Lactic Acid Followup at 4 Hours 2.4*H 08/10/18 19:52: Bedside Glucose (Misc Panel) 256H 08/10/18 20:55: Blood Gas Bicarbonate Standard 21.2L, Arterial Blood pH 7.330L, Arterial Blood Partial Pressure CO2 42.4, Arterial Blood Partial Pressure O2 90.1, Arterial Blood Total CO2 23.2, Arterial Blood HCO3 21.9L, Arterial Blood Base Excess - 3.9L, Arterial Blood Oxygen Saturation 96.5 08/10/18 22:05: Bedside Glucose (Misc Panel) 202H 08/10/18 22:53: Anion Gap 6L, Glomerular Filtration Rate 13.4L, Lactic Acid Level 1.7, Blood U isaiah Nitrogen 147H, Creatinine 3.47H, Sodium Level 155H, Potassium Level 4.3, Chloride Level 123H, Carbon Dioxide Level 26, Calcium Level 10.3H, Total Creatine Kinase 113, Ammonia < 10, Creatine Kinase MB 10.0H, Creatine Kinase MB Relative Index 9.12H, Troponin I 1.21#H 08/11/18 04:47: Anion Gap 5L, Glomerular Filtration Rate 14.6L, Blood Urea Nitrogen 148H, Creatinine 3.23H, Sodium Level 156H, Potassium Level 4.2, Chloride Level 126H, Carbon Dioxide Level 25, Calcium Level 10.4H, Total Creatine Kinase 400#H, Creatine Kinase MB 52.0H, Creatine Kinase MB Relative Index 12.95H, Troponin I 7.87#*H, Nucleated Red Blood Cells % (auto) 0.2H CBC/BMP Laboratory Tests 08/10/18 13:38 Red Blood Count 5.58 H, Mean Corpuscular Volume 92.5, Mean Corpuscular Hemogl obin 28.1, Mean Corpuscular Hemoglobin Concent 30.4 L, Red Cell Distribution Width 14.0, Neutrophils (%) (Auto) 78.7 H, Lymphocytes (%) (Auto) 12.7 L, Monocytes (%) (Auto) 7.7 H, Eosinophils (%) (Auto) 0.2, Basophils (%) (Auto) 0.1, Neutrophils # (Auto) 13.6 H, Lymphocytes # (Auto) 2.2, Monocytes # (Auto) 1.3 H, Eosinophils # (Auto) 0.0, Basophils # (Auto) 0.0 08/10/18 18:03 Calcium Level 11.0 H 08/10/18 22:53 Calcium Level 10.3 H, Total Creatine Kinase 113 08/11/18 04:47 Red Blood Count 4.86, Mean Corpuscular Volume 92.4, Mean Corpuscular Hemoglobin 28.4, Mean Corpuscular Hemoglobin Concent 30.7 L, Red Cell Distribution Width 14.0, Calcium Level 10.4 H Microbiology Microbiology 08/10/18 Blood Culture, Received Pending 08/10/18 Blood Culture, Received Pending DUSTIN MORROW MD August 11, 2018 07:07
[2018-08-11] MEDS: ASPIRIN 300 MG SUPP PR SCH (11:39)
[2018-08-11 11:50] LABS: CALCIUM LEVEL 9.7 MG/DL (8.8-10.2); CREATININE FOR GFR 3.25 MG/DL (0.55-1.30); GLOMERULAR FILTRATION RATE 14.5 (>32); POTASSIUM SERUM 4.2 MEQ/L (3.5-5.1)
[2018-08-11 11:57] LABS: INR 1.12; PROTHROMBIN TIME 14.6 SECONDS (12.1-14.4)
[2018-08-11 11:58] LABS: PARTIAL THROMBOPLASTIN TIME 25.2 SECONDS (25.4-37.6)
[2018-08-11 12:18] LABS: MB/CK RELATIVE INDEX 13.25 (< OR =4); TROPONIN I 16.6 NG/ML (< 0.10)
--- NOTE | 2018-08-11 12:23 | REP ---
PORTABLE CHEST: AP portable view of the chest is performed and compared to a prior study of 05/30/2017 as well as other prior exams. There is mild cardiomegaly and vascular congestion. No acute infiltrate is seen bilaterally. There is calcification and tortuosity of the thoracic aorta. The mediastinal silhouette is unchanged. Multiple sternal wires are present. IMPRESSION: Mild cardiomegaly and vascular congestion. No acute infiltrate. Electronically Signed by Rolando Coello MD 08/11/2018 12:31 P
--- NOTE | 2018-08-11 13:35 | CR ---
DATE OF CONSULTATION: 08/11/2018 REFERRING PHYSICIAN: Dr. Deluca PRIMARY CARE PROVIDER: Dr. Daniel Perez NURSING CONSULTANT: Dr. Lomeli DIAGNOSIS: Non-STEMI, NSVT HISTORY OF PRESENT ILLNESS: Mrs. Reyes is previously unknown to me. She is an 82-year-old female who has established coronary artery disease with history of five-vessel coronary artery bypass graft in 1998 and history of aortic valve replacement with bioprosthesis in 2013. She also carries a history of chronic renal insufficiency, hypertension and type 2 diabetes. As of lately, her condition has been dominated by slowly progressive dementia. According to her family, her condition deteriorated markedly in the last 2 weeks. They noticed what I would describe as failure of thrive with poor oral intake, intermittent confusion. She was actually seen by Dr. Perez 3 days prior to this admission. There was a concern that the patient could potentially have urinary tract infection (UTI) and she was prescribed Macrodantin but in spite of that her condition actually deteriorated further. In the last 48 hours, she had very minimal oral intake, as far as the food and liquids are concerned, and also she has not taken many of her medications. On presentation to emergency room, she was agitated and confused. Her laboratories revealed acute on chronic renal failure. She was also hypernatremic and had mildly elevated troponin that eventually progressed to about a 7 as of this morning. At that point, I was asked by Dr. Deluca to see the patient in consultation. During her brief hospital stay, she had several runs of nonsustained ventricular tachycardia and her ECG at baseline demonstrates sinus rhythm with left bundle branch block, which precludes diagnosis of myocardial infarction. The left bundle branch block has been old. She has various types of arrhythmias, besides nonsustained VT she has also episodes what appear to me most likely representing atrial flutter with 2:1 conduction and atrial fibrillation. At bedside, the patient is confused and she cannot provide any history or answer even simple questions appropriately, but her two daughters and her are at bedside and fill in the gaps. Apparently in this last 2 weeks she at no point was complaining about any dyspnea or chest discomfort and they did not notice any obvious discomfort as such. If anything, there was a concern about abdominal pain. PAST MEDICAL HISTORY: 1. Coronary artery disease, CABG 1998 (according to her five-vessel CABG). 2. Aortic valve replacement with bioprosthesis in 2014 (it was open heart surgery, cardiac catheterization prior to the surgery revealed patency of all her bypasses). 3. Chronic diastolic congestive heart failure. 4. Hypertension. 5. Type 2 diabetes. 6. Dyslipidemia. 7. Chronic renal insufficiency. 8. Vitamin B12 deficiency. 9. Gastroesophageal reflux disease (GERD). 10. Questionable chronic obstructive pulmonary disease (COPD). PAST SURGICAL HISTORY: Aortic valve replacement, CABG, appendectomy, left hip replacement, bilateral knee replacement. ALLERGIES: PENICILLIN, CEPHALOSPORINS, SULFA ANTIBIOTICS. FAMILY HISTORY: No longer relevant considering her age. SOCIAL HISTORY: The patient is and lives with her . He provides most of the care with the daughters involved as well. There is a remote history of smoking. No significant alcohol use. REVIEW OF SYSTEMS: Not obtainable due to her condition but according to her there were no of complaints about chest pain or shortness of breath, but he has noticed that her mobility and mental status has progressively declined over the last 2 weeks. OUTPATIENT MEDICATIONS: - aspirin 81 mg a day - Rocaltrol 0.5 mg a day - Toujeo insulin 22 units daily - metoprolol succinate 25 mg daily - nitrofurantoin - nitroglycerin as needed She was also taking: - Celexa 40 mg a day - vitamin B12 - Aricept 10 mg a day - furosemide 20 mg a day - glipizide 10 mg twice a day - Humalog insulin - mirtazapine 30 mg at night - pantoprazole 40 mg a day - Crestor or 10 mg - tumeric 500 mg capsules It appears that these medications were likely not administered for at least several days. PHYSICAL EXAMINATION: The patient is an elderly, frail female. She is lying in completely horizontal position, does not appear to be in any distress. She is alert but not oriented. Last set of vital signs: Blood pressure 110/60, heart rate in 70s, afebrile. Saturation 94% on 2 liters of oxygen. Weight was documented 55 kg this morning. She has not made much urine today, about 200 mL so far and this is after she received fairly vigorous intravenous hydration. Her jugular venous pressure does not look high. Lungs are reasonably clear to auscultation. I do appreciate wheezing, crackles or rhonchi. Heart exam reveals regular rhythm. There is paradoxically splitting second heart sound. There is a faint murmur best heard over the aortic valve area, about 1 or 2 out of 6 in intensity systolic. Abdomen is soft. She appears to be mildly tender when palpated over lower quadrants but no guarding or rebound tenderness. Bowel sounds are positive. Extremities are free of edema and peripheral pulses are palpable. She does not have any trophic defects. LABORATORY DATA: CBC: WBC count 12.7, hemoglobin 13.8, hematocrit 44.9, platelet count 224,000. Basic metabolic panel: Sodium 156, which was 155 yesterday, potassium 4.2, chloride 126, BUN 148, creatinine 3.2 and was 3.5 yesterday, glucose 111, calcium 10.4. Her cardiac enzymes on admission showed troponin I was only 0.35 and CK 77. The subsequent troponin was 1.1 and last one was 7.8. ECGs as per history of present illness. She did have a head CT that revealed diffuse atrophy but no obvious bleed of strokes. Abdominal x-ray was relatively unremarkable, also involved part of the chest and this seemed to be free of infiltrates. ASSESSMENT AND PLAN: Mrs. Reyes is an 82-year-old female who has dementia, history of coronary artery bypass graft (CABG) 20 years ago who presents with what appears to be encephalopathy, I suspect most likely related to dehydration that brought with additional problems, including hypernatremia, acute on chronic renal failure. She does have probably type 2 myocardial infarction. Her underlying left bundle branch block precludes diagnosis of ST-segment shifts. Unfortunately, due to her overall condition, she is not a candidate for any invasive measures. She is also DO NOT INTUBATE, DO NOT RESUSCITATE. I had a long discussion with her and two daughters at bedside and explained the situation. They seemed to be very understanding and there are definite limits on the interventions. At this point, her oral intake is not possible, so she will get rectal aspirin. She is getting Lovenox 1 mg/kg once a day, which is fully therapeutic anticoagulation. She received 150 mg of IV amiodarone for episode of nonsustained ventricular tachycardia and this will be repeated should she have any additional prolonged episodes. In my opinion, her prognosis is guarded, and I am pessimistic about her surviving her current condition, even though it is definitely possible. I expressed this sentiment to her family. She would ideally be receiving additional medications but due to her inability to swallow pills, I believe that the statins or Plavix cannot be safely administered. If this should improve then obviously we will put her on Plavix. Because of her low blood pressure, she probably cannot safely get beta-blockers IV. Dr. Lomeli /Dr. Mane will be back to cover her service tomorrow morning. SILKE
[2018-08-11] MEDS ORDERED: BISACODYL 10 MG SUPP PR ONE (14:00)
[2018-08-11 15:16] LABS: INFLUENZA A AMPLIFICATION NEGATIVE (NEGATIVE); INFLUENZA B AMPLIFICATION NEGATIVE (NEGATIVE)
--- NOTE | 2018-08-11 17:27 | ECGEPIP ---
Stationary ECG Study [facility] Test Date: 2018-08-10 Pat Name: VANDA CLAY Department: Room: [place] [address] Gender: F Medical Front Desk Specialist: DIXIE : 1935 Requested By: DUSTIN Rao Order Number: [id number] Reading MD: Daniel Perez Measurements Intervals [place] Rate: 120 P: 268 SC: 137 QRS: 50 QRSD: 133 T: 226 QT: 348 QTc: 494 Interpretive Statements Junctional tachycardia; P waves not seen well but may be present Left bundle branch block Stable with the exception of rhythm vs. prior tracing of 08/10/2018 at 13:54 Electronically Signed On 08-11-2018 17:27:16 EDT by Daniel Perez
--- NOTE | 2018-08-11 17:29 | ECGEPIP ---
Stationary ECG Study [facility] Test Date: 2018-08-11 Pat Name: VANDA CLAY Department: Room: [place] [address] Gender: F Way Inspector: MELONIE : 1935 Requested By: NELLY GONZALES Order Number: [id number] Reading MD: Daniel Perez Measurements Intervals [place] Rate: 100 P: [place]: 0 QRS: 57 QRSD: 134 T: 222 QT: 395 QTc: 511 Interpretive Statements Probable atrial fibrillation with controlled VR Left bundle branch block Compared to prior tracing of 08/10/2018, heart rate is slower and there is an apparent rhythm change Electronically Signed On 08-11-2018 17:29:39 EDT by Daniel Perez
[2018-08-11] MEDS: D5W/0.45% SODIUM CHLORIDE 1,000 ML IV SCH (18:00)
[2018-08-11 18:55] LABS: CALCIUM LEVEL 9.7 MG/DL (8.8-10.2); CREATININE FOR GFR 3.05 MG/DL (0.55-1.30); GLOMERULAR FILTRATION RATE 15.6 (>32); MB/CK RELATIVE INDEX 12.71 (< OR =4); POTASSIUM SERUM 4.1 MEQ/L (3.5-5.1); TROPONIN I 23.7 NG/ML (< 0.10)
[2018-08-11] MEDS: ENOXAPARIN 60 MG/0.6 ML SYR (J1650) SC SCH (20:07)
[2018-08-11] MEDS ORDERED: ENOXAPARIN 60 MG/0.6 ML SYR (J1650) SC SCH (21:00)
[2018-08-11] MEDS ORDERED: LEVEMIR (INSULIN DETEMIR) 1 UNITS/0.01ML SC SCH (21:00)
--- NOTE | 2018-08-11 21:05 | ECGEPIP ---
Stationary ECG Study [facility] - ED Test Date: 2018-08-10 Pat Name: VANDA CLAY Department: Room: - Gender: F Sports Physiologist: jt : 1935 Requested By: Camilla Arndt Order Number: [id number] Reading MD: Camilla Arndt Measurements Intervals [place] Rate: 128 P: 75 [place]: 214 QRS: 90 QRSD: 130 T: 264 QT: 334 QTc: 489 Interpretive Statements JUNCTIONAL TACHYCARDIA LEFT VENTRICULAR HYPERTROPHY AND ST-T CHANGE LBBB POSSIBLE ANTEROSEPTAL MYOCARDIAL INFARCTION, CLINICAL CORRELATION Electronically Signed On 08-11-2018 21:05:32 EDT by Camilla Arndt
[2018-08-12] VITALS (19 sets, daily range): BP systolic 98–140; BP diastolic 56–89; O2SAT 92–98
[2018-08-12] MEDS: D5W/0.45% SODIUM CHLORIDE 1,000 ML IV SCH (00:40)
[2018-08-12 00:49] LABS: CALCIUM LEVEL 8.7 MG/DL (8.8-10.2); CREATININE FOR GFR 2.88 MG/DL (0.55-1.30); GLOMERULAR FILTRATION RATE 16.7 (>32)
[2018-08-12 01:04] LABS: MB/CK RELATIVE INDEX 12.67 (< OR =4); TROPONIN I 23.5 NG/ML (< 0.10)
[2018-08-12 05:07] LABS: BASO % 0.1 % (0.0-1.0); EOS # 0.2 10^3/uL (0.0-0.50); EOS % 2.3 % (0.0-3.0); HEMATOCRIT 37.9 % (36.0-47.0); LYMPH # 1.4 10^3/uL (1.5-4.5); LYMPH % 15.3 % (24.0-44.0); MEAN CORPUSCULAR HEMOGLOBIN 27.8 pg (27.0-33.0); MEAN CORPUSCULAR HGB CONC 29.8 g/dl (32.0-36.5); MEAN CORPUSCULAR VOLUME 93.3 fl (80.0-96.0); MONO # 0.6 10^3/uL (0.0-0.8); NEUTROPHILS # 6.8 10^3/uL (1.8-7.7); NEUTROPHILS % 74.5 % (36.0-66.0); PLATELET COUNT, AUTOMATED 177 10^3/uL (150-450); RED BLOOD COUNT 4.06 10^6/uL (4.00-5.40); WHITE BLOOD COUNT 9.1 10^3/uL (4.0-10.0)
[2018-08-12 05:34] LABS: CREATININE FOR GFR 2.73 MG/DL (0.55-1.30); GLOMERULAR FILTRATION RATE 17.7 (>32); MB/CK RELATIVE INDEX 11.96 (< OR =4); POTASSIUM SERUM 3.6 MEQ/L (3.5-5.1)
[2018-08-12 05:35] LABS: HEMOGLOBIN 11.3 g/dl (12.0-15.5)
[2018-08-12] MEDS: HumaLOG INSULIN (NovoLOG) PER UNIT SC SCH ×4 (06:00→20:32)
[2018-08-12] MEDS ORDERED: D5W/0.45% SODIUM CHLORIDE 1,000 ML IV SCH (07:00)
[2018-08-12] MEDS: METOPROLOL SUCC *XL* 25MG TAB (TopROL *XL*) PO SCH (09:14)
[2018-08-12] MEDS: ASPIRIN 300 MG SUPP PR SCH (09:16)
[2018-08-12] MEDS ORDERED: NS 500 ML IV ONE (09:30)
--- NOTE | 2018-08-12 09:43 | IPNPDOC ---
Date Seen The patient was seen on 08/12/18. Progress Note SUBJECTIVE: Patient is able to recognize her at the bedside and is able to converse with him. She denies any chest pain, pressure, tightness, sob. despite ivfluids for the past 48hrs, sodium remains 151 this am. nephrology consulted. 08/12/18 Tele: no recurrent vtach overnight. due to dysp hagia, po meds held. asa given per rectum and lovenox renally dosed sq continued. pt's family are realistic about grim prognosis, but want to continue supportive care. THey, however, do not want anything invasive, and refused transfer to [place] for NSTEMI. Troponin still climbing. 08/11/18 Tele: Vtach s/p one dose iv amiodarone. Afib w rvr last night requiring cardizem q6hrs with improvement, but now unable to take anything orally due to ams and risk of aspiration. CT head: no CVA. Pt has developed AFib s/p metoprolol . OBJECTIVE: PHYSICAL EXAMINATION: - Vitals: pls see below - General: Lying on a stretcher, AAOx 1 person only,able to recognize her . - HEENT: NC, AT, PERRLA, no JVD, dry mucus membranes, chapped lips, edentulous - CVS: sinus tachycardia, +S1S2, no JVD - Lungs: Fair air entry bilaterally, no appreciable wheezing, rales or rhonchi - Abdomen: Soft, distented, Non-tender, + Bowel sounds x 4, no HSM - Extremities: No lower extremity edema, No calf tenderness - Neuro: AAOx1, baseline dementia, confusion improving EKG: sinus tachycardia ventricular rate 128, First Degree AV block, LVH LABORATORY DATA, IMAGING STUDIES, MICROBIOLOGY: PLS SEE BELOW ASSESSMENT AND PLAN: Patient is an 82-year-old female DO NOT RESUSCITATE DO NOT INTUBATE who lives at home with her with PMHx significant for CAD s/p CABG (1998), AVR with a bioprosthetic (2013), CHF EF50% mildly reduced EF, Grade 1 diastolic dysfunction on a 05/[address] 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 No fever, chills,cough, rhinorrhea, nasal congestion, sob, dysuria, urgency, frequency, foul urine, nausea, vomiting, abdominal pain per the husb and. Pt is usually able to eat sandwiches like grilled cheese per the . She has worsened in the past 3-4 days,prompting the family to see Dr. Perez with concerns that the pt may have a UTI. She was given macrodantin, received one dose without improvement, and progressive worsened , worrying the family further. In the ER, pt was found to be severely dehydrated with hypernatremia 151-156, acute on ckd 4 with new gfr 11, and troponin 0.3 ckmb relative index of 6. Hospitalist was asked to admit as an inpatient for two midnights for acute uremic encephalopathy, acute on CKD5, Hypernatremia, Hyperglycemia, NSTEMI, and failure to thrive. Acute Metabolic Encephalopathy in the setting of Chronic and progressive alzhiemer's Dementia - due to uremia with acute on CKD 5 in the setting of decreased oral intake, recent use of macrodantin in a ckd pt, NSTEMI, SIRS, dehydration/hypernatremia, and lactic acidosis - Patients and daughters had indicated that the patient has been confu sed for a very long time and has been diagnosed with Alzheimer's dementia - Upon questioning about what brought them , family stated that she was more confused for the past 2wks which worsened in the past 3-4 days. -They noted that she didn't make any sense when speaking, and has not been eating with increased sleepiness and lethargy. - s/p macrodantin given by PCP with sudden decompensation and progression of renal failure to stage 5 CKD. - Physical without any focal neurologic deficit - Ammonia level , ABG,Respiratory panel, CT Head are pending. - Urinalysis and CXR are without any evidence of infection - Previous CT head 05/28: No acute hemorrhage/infarct, findings consistent with age-related atrophy and chronic small vessel ischemic disease -aspiration risk, npo for now until swallow evaluation. hypoglycemic protocol while npo. keep HOB>30degrees. Fall precautions, and sitter until mentation improves. Acute on CKD5 with Uremic Encephalopathy with recent use of Macrodantin - Creatinine baseline of approximately 2.1-2.4 - due to decreased oral intake, failure to thrive, and recent use of macrodantin. - no metabolic acidosis, fluid overload, hyperkalemia, but with significant ur emic encephalopathy - ivfluid hydration with d51/2 ns - renally dose medications, strict i/o, [place] for 48hrs for critical patient monitoring, avoiding nephrotoxins - Family wants limited intervention of only IVFLUIDS, ANTIBIOTICS. No dialysis. Hypernatremia/ Dehydration -due to decreased oral intake, failure to thrive. Family reports no fluid losses in the form of vomiting or diarrhea. -goal Na change of 10-12 meq over 24 hrs to prevent significant fluid shifts; 141 by 13:30 08/11/18 to prevent central pontine myelinolysis. -serial metabolic panel and adjust d51/2/ns accordingly -causing significant mental status changes -aspiration risk Aspiration risk -due to ams from uremia with acute on CKD 5 in the setting of decreased oral intake, recent use of macrodantin in a ckd pt, NSTEMI, SIRS, dehydration/hypernatremia, and lactic acidosis NSTEMI , type 2 -history of CAD s/p CABG (1998) -Per and daughter at the bedside, conservative medical management. -Family wants limited intervention and does not want transfer to [place] for Left heart cath. -ASA, plavix, statin, beta miguel a, lovenox renally dosed on admission -due to ams and aspiration risk, ASA changed to [place], plavix and beta miguel a held, and continued on lovenox sq on 08/11/18. -cycle cardiac markers and EKG. -repeat Echo -Director Of Financial Aid: Dr. Quevedo no new recommendations Atrial Fibrillation, new onset -unable to take po meds due to aspiration risk -on lovenox sq for nstemi -s/p 1 dose of amiodarone for nsvt -bp low NSVT -Echo ordered -secondary to CAD/NSTEMI -s/p amiodarone x 1 150 mg iv 08/11/18 Constipation -bowel regimen w enema due to aspiration risk HTN - s/p metoprolol , unable to take po meds due to aspiration risk - Will hold furosemide in light of acute on ckd5 and dehydration. AVR with a bioprosthetic (2013) - Not on any antiplatelet elevation CHF with mildly reduced EF EF 50%, Grade 1 diastolic dysfunction - Will re-order 2-D echocardiogram due to NSTEMI - currently with severe dehydraton and acute onCKD5 - hold diuretics. IDDM2, uncontrolled -resume basal insulin -hypoglycemic protocol while npo -check a1c DLP - Continue with statin Iron Deficiency Anemia / B12 Deficiency - Continue with supplementation once mentation improves. Osteoporosis -oupt fu Questionable history of COPD - Patients reports that shes never had a pulmonary function test - She rarely requires the use of albuterol - Does not use any other inhaled therapy -due to AMS, r/o acute respiratory acidosis with ABG -supplemental oxygen if o2 sat<88% GERD - Continue with PPI DVT prophylaxis - on Lovenox Diet: NPO due to aspiration risk from AMS CODE Status: DNR/DNI A-FIB/CHADSVASC A-FIB History Current/History of A-Fib/PAF?: No Current Oral Anticoagulant The: No A-FIB/CHADSVASC A-FIB History Current/History of A-Fib/PAF?: Yes Current Oral Anticoagulant The: No Treatment Treatment ordered: Heparin IV bridge Therapy, Other Other anticoagulant ordered: lovenox for nstemi VS, I&O, 24H, Jakbonmariah Vital Signs/I&O Vital Signs Date Time Temp Pulse Resp B/P (MAP) Pulse Ox O2 Delivery O2 Flow Rate FiO2 08/12/18 04:00 98.6 69 20 115/56 (75) 93 2.0 08/11/18 13:00 Room Air I&O- Last 24 Hours up to 6 AM 08/12/18 06:00 Intake Total 3850 ml Output Total 1000 ml Balance 2850 ml Laboratory Data 24H LABS Laboratory Tests 2 08/11/18 11:12: Prothrombin Time 14.6H, Prothromb Time International Ratio 1.12, Activated Partial Thromboplast Time 25.2L, Anion Gap 6L, Glomerular Filtration Rate 14.5L, Blood Urea Nitrogen 136H, Creatinine 3.25H, Sodium Level 152H, Potassium Level 4.2, Chloride Level 122H, Carbon Dioxide Level 24, Calcium Level 9.7, Total Creatine Kinase 631H, Creatine Kinase MB 84.0H, Creatine Kinase MB Relative Index 13.25H, Troponin I 16.60#*H 08/11/18 12:06: Bedside Glucose (Misc Panel) 249H 08/11/18 12:50: Influenza Type A (RT-PCR) NEGATIVE, Influenza Type B (RT-PCR) NEGATIVE 08/11/18 18:02: Anion Gap 4L, Glomerular Filtration Rate 15.6L, Blood Urea Nitrogen 136H, Creatinine 3.05H, Sodium Level 152H, Potassium Level 4.1, Chloride Level 125H, Carbon Dioxide Level 23, Calcium Level 9.7, Total Creatine Kinase 631H, Creatine Kinase MB 80.0H, Creatine Kinase MB Relative Index 12.71H, Troponin I 23.70#*H 08/11/18 18:25: Bedside Glucose (Misc Panel) 106 08/11/18 20:05: Bedside Glucose (Misc Panel) 291H 08/11/18 23:37: Bedside Glucose (Misc Panel) 381H 08/12/18 00:04: Anion Gap 3L, Glomerular Filtration Rate 16.7L, Blood Urea Nitrogen 113H, Creatinine 2.88H, Sodium Level 149H, Potassium Level 4.0, Chloride Level 121H, Carbon Dioxide Level 25, Calcium Level 8.7L, Total Creatine Kinase 498H, Creatine Kinase MB 63.0H, Creatine Kinase MB Relative Index 12.67H, Troponin I 23.50*H 08/12/18 04:22: Immature Granulocyte % (Auto) 0.8, White Blood Count 9.1, Red Blood Count 4.06, Hemoglobin 11.3#L, Hematocrit 37.9, Mean Corpuscular Volume 93.3, Mean Corpuscular Hemoglobin 27.8, Mean Corpuscular Hemoglobin Concent 29.8L, Red Cell Distribution Width 13.9, Platelet Count 177, Neutrophils (%) (Auto) 74.5H, Lymphocytes (%) (Auto) 15.3L, Monocytes (%) (Auto) 7.0H, Eosinophils (%) (Auto) 2.3, Basophils (%) (Auto) 0.1, Neutrophils # (Auto) 6.8, Lymphocytes # (Auto) 1.4L, Monocytes # (Auto) 0.6, Eosinophils # (Auto) 0.2, Basophils # (Auto) 0.0, Nucleated Red Blood Cells % (auto) 0.0, Anion Gap 5L, Glomerular Filtration Rate 17.7L, Blood Urea Nitrogen 105H, Creatinine 2.73H, Sodium Level 151H, Potassium Level 3.6, Chloride Level 121H, Carbon Dioxide Level 25, Calcium Level 9.0, Total Creatine Kinase 382H, Creatine Kinase MB 46.0H, Creatine Kinase MB Relative Index 11.96H, Troponin I 22.00*H CBC/BMP Laboratory Tests 08/11/18 11:12 Calcium Level 9.7 08/11/18 18:02 Calcium Level 9.7, Total Creatine Kinase 631 H 08/12/18 00:04 Calcium Level 8.7 L 08/12/18 04:22 Calcium Level 9.0, Total Creatine Kinase 382 H, Red Blood Count 4.06, Mean Corpuscular Volume 93.3, Mean Corpuscular Hemoglobin 27.8, Mean Corpuscular Hemoglobin Concent 29.8 L, Red Cell Distribution Width 13.9, Neutrophils (%) (Auto) 74.5 H, Lymphocytes (%) (Auto) 15.3 L, Monocytes (%) (Auto) 7.0 H, Eosinophils (%) (Auto) 2.3, Basophils (%) (Auto) 0.1, Neutrophils # (Auto) 6.8, Lymphocytes # (Auto) 1.4 L, Monocytes # (Auto) 0.6, Eosinophils # (Auto) 0.2, Basophils # (Auto) 0.0 Microbiology Microbiology 08/10/18 Blood Culture - Preliminary, Resulted No growth after 24 hours . All specim... 08/10/18 Blood Culture - Preliminary, Resulted No growth after 24 hours . All specim... 08/11/18 MRSA Screen, Resulted Pending 08/11/18 Respiratory Virus Panel (PCR) (ELLEN) - Final, Resulted DUSTIN MORROW MD August 12, 2018 07:02
[2018-08-12 10:45] LABS: CREATININE FOR GFR 2.43 MG/DL (0.55-1.30); GLOMERULAR FILTRATION RATE 20.3 (>32); MB/CK RELATIVE INDEX 10.94 (< OR =4); POTASSIUM SERUM 3.7 MEQ/L (3.5-5.1); TROPONIN I 18.1 NG/ML (< 0.10)
--- NOTE | 2018-08-12 11:36 | NUR ---
Recommend pureed solids, nectar thick liquids, upright position during meal w/ full assistance for PO intake, medications crushed in puree assist, Biotene, oral care 3x/day please. Dysphagia tx. Addendum: 08/12/18 at 1137 by [facility] Amended: Links added.
[2018-08-12] MEDS: D5W 1,000 ML IV SCH (11:38)
[2018-08-12] MEDS ORDERED: PILL CRUSHER/CUTTER 1 EACH XX PRN (13:15)
[2018-08-12] MEDS: ATORVASTATIN 20 MG TAB PO SCH (16:23)
[2018-08-12] MEDS: CLOPIDOGREL 75 MG TAB PO SCH (16:23)
[2018-08-12] MEDS: SALIVA SUBSTITUTE(MOUTHKOTE) BTL MT PRN (16:26)
[2018-08-12 19:01] LABS: CREATININE FOR GFR 2.35 MG/DL (0.55-1.30); GLOMERULAR FILTRATION RATE 21.1 (>32); MB/CK RELATIVE INDEX 8.53 (< OR =4); POTASSIUM SERUM 4.3 MEQ/L (3.5-5.1)
[2018-08-12] MEDS: ENOXAPARIN 60 MG/0.6 ML SYR (J1650) SC SCH (20:32)
[2018-08-12] MEDS ORDERED: ACETAMINOPHEN 650 MG SUPP PR PRN (21:00)
[2018-08-13] VITALS (16 sets, daily range): BP systolic 107–144; BP diastolic 51–68; O2SAT 95–100
[2018-08-13] MEDS: D5W 1,000 ML IV SCH
[2018-08-13 00:09] LABS: CALCIUM LEVEL 8.5 MG/DL (8.8-10.2); CREATININE FOR GFR 2.27 MG/DL (0.55-1.30); GLOMERULAR FILTRATION RATE 21.9 (>32); POTASSIUM SERUM 4.1 MEQ/L (3.5-5.1)
[2018-08-13 00:26] LABS: MB/CK RELATIVE INDEX 7.77 (< OR =4); TROPONIN I 13.5 NG/ML (< 0.10)
[2018-08-13 03:53] LABS: BASO % 0.1 % (0.0-1.0); EOS # 0.2 10^3/uL (0.0-0.50); EOS % 2.3 % (0.0-3.0); LYMPH # 1.4 10^3/uL (1.5-4.5); MEAN CORPUSCULAR HEMOGLOBIN 27.7 pg (27.0-33.0); MEAN CORPUSCULAR HGB CONC 29.7 g/dl (32.0-36.5); MEAN CORPUSCULAR VOLUME 93.2 fl (80.0-96.0); MONO # 0.6 10^3/uL (0.0-0.8); MONO % 6.3 % (0.0-5.0); NEUTROPHILS % 75.4 % (36.0-66.0); PLATELET COUNT, AUTOMATED 157 10^3/uL (150-450); RED BLOOD COUNT 3.97 10^6/uL (4.00-5.40); WHITE BLOOD COUNT 9.3 10^3/uL (4.0-10.0)
[2018-08-13 04:18] LABS: CALCIUM LEVEL 8.4 MG/DL (8.8-10.2); CREATININE FOR GFR 2.18 MG/DL (0.55-1.30); POTASSIUM SERUM 3.7 MEQ/L (3.5-5.1)
--- NOTE | 2018-08-13 06:04 | CR ---
DATE OF CONSULTATION: 08/12/2018 REQUESTING PHYSICIAN: Dr. Cami Deluca REASON FOR CONSULTATION: Hypernatremia and acute kidney injury (MARIA ESTHER) on chronic kidney disease (CKD) stage IV. HISTORY OF PRESENT ILLNESS: History is obtained from the discussion with family, health care providers and chart review. The patient is unable to provide any history secondary to clinical condition. Anne Reyes is an 83-year-old female with a past medical history of dementia, coronary artery disease status post coronary artery bypass grafting (CABG), aortic valve replacement, diastolic congestive heart failure, hypertension, type 2 diabetes and CKD stage IV with baseline creatinine in the 2s and other comorbid conditions mentioned below. Apparently the patient was having about a one week history of confusion, decreased oral intake, lethargy and weakness at home. Her family reports that she was diagnosed with a possible urinary tract infection (UTI) and started on outpatient oral antibiotics (Macrodantin). However, she did not have any improvement and continued to become progressively more lethargic, confused and weak at home prompting a visit to the emergency room (ER). In the ER the patient was found to be in acute on chronic renal failure with a BUN of 142 and creatinine of 3.9 and a sodium around 156 on admission. She was also found to have non ST elevation myocardial infarction (NSTEMI) and she was admitted for the same. She received hypotonic intravenous (IV) fluids with improvement in her renal function. However, her sodium levels have persistently stayed around 150 and nephrology evaluation was subsequently requested. She remains nothing by mouth and altered and is pending a swallow evaluation. PAST MEDICAL AND SURGICAL HISTORY: 1. CKD stage IV. 2. Coronary artery disease status post CABG in 1998. 3. Aortic valve replacement with a bioprosthetic valve in 2013. 4. Diastolic congestive heart failure. 5. Hypertension. 6. Type 2 diabetes. 7. Dyslipidemia. 8. Anemia. 9. Osteoporosis. 10. Gastroesophageal reflux disease (GERD). 11. Dementia. 12. Questionable history of chronic pulmonary obstructive disease (COPD). 13. History of appendectomy. 14. Left hip fracture in 2014. 15. Bilateral knee arthroplasty. ALLERGIES: CEPHALOSPORINS, PENICILLIN and SULFA. HOME MEDICATIONS: Reviewed and include: - aspirin - calcitriol - Toujeo - metoprolol FAMILY HISTORY: Noncontributory. 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 She is an ex-smoker. DO NOT RESUSCITATE/DO NOT INTUBATE (DNR/DNI). REVIEW OF SYSTEMS: Unable to obtain review of systems secondary to clinical condition and underlying dementia. PHYSICAL EXAMINATION: VITAL SIGNS: Temperature 98.7, pulse 82, respiratory rate 20, blood pressure 136/87, saturating 98% on room air. Intake yesterday was 2.6 liters. Urine output yesterday was 950 mL. Weight in the bed scale today is 51.7 kg. GENERAL: The patient is seen lying in bed, an elderly female lethargic, very slow to respond and in no apparent distress. Oriented only times one. Able to tell me her name after much prompting. HEENT: Poor eye contact. Nasal cannula in place. Dry tongue and dry mucous membranes. CARDIAC: S1. S2, jugular veins do not appear elevated. LUNGS: Symmetric air entry bilaterally. No wheezing or rhonchus. No tachypnea or accessory muscle use. ABDOMEN: Soft and she does not grimace to palpation. There are hypoactive bowel sounds. EXTREMITIES: The lower extremities are negative for edema. She is wearing compression stockings. NEUROLOGIC: She does not follow commands. She is oriented only to self and able to tell her name after much prompting. SKIN: Normal turgor and temperature. LABORATORY DATA: Sodium 150, potassium 4.3, BUN 87, creatinine 2.3, troponin 16, hemoglobin 11.3. Chest x-ray August 11: Mild vascular congestion. INPATIENT MEDICATIONS: I discontinued the normal saline and switched her to D5W at 80 mL an hour. - she continues on aspirin 300 mg rectally daily - atorvastatin 40 mg by mouth daily - Plavix 75 mg by mouth daily - Lovenox 50 mg subcutaneous daily - insulin - metoprolol 25 mg by mouth daily which I have put on hold PROBLEMS: 1. Acute kidney injury on chronic kidney disease stage IV. Acute kidney injury is secondary to prerenal state and dehydration with free water deficit. Her admission BUN was 142 with creatinine of 3.9. Her renal function has nicely improved over the course of this admission with hypotonic fluids and is not yet back to baseline. Would continue with hypotonic fluids at this point and monitor urine output via Forte catheter. 2. Hypernatremia secondary to decreased oral intake with ongoing free water deficit. Discontinue saline containing fluids. At this point switch over to D5W at 80 mL an hour. There is no need for further saline containing fluid for this patient. When she is able to take oral we will encourage water intake. At present she is nothing by mouth. 3. Diastolic congestive heart failure and at present with non-ST elevation myocardial infarction. Chest x-ray done yesterday did show some pulmonary vascular congestion. For this reason I do not recommend continuing any saline containing fluids in view of her hypernatremia and risk of worsening her fluid status. D5W will be the optimal fluid of choice. If her blood pressure stays stable she can also be started on a low dose of Lasix; however, at present I do not see any need to start diuretics. Beta miguel a is presently held due to borderline blood pressures. Thank you for involving me in the care of Ms. Reyes. I will be happy to follow her along with you.
--- NOTE | 2018-08-13 08:32 | REP ---
Portable chest x-ray: Single view. History: Evaluate for pulmonary edema. Comparison study: August 11, 2018. Findings: EKG monitoring electrodes overlie the chest. The patient is status post what appears to be aortic valve replacement via median sternotomy. Left mediastinal clips are noted as before. Heart is not enlarged. Pulmonary vasculature is not increased. There is no evidence of pleural effusion or pulmonary edema. No focal infiltrate is seen. There is a skin fold overlying the lateral chest on the left inferiorly. The patient is rotated slightly to the left. Impression: Status post aortic valve replacement. Normal heart size. No evidence of pulmonary edema or pleural effusion. Electronically Signed by Antonino James MD 08/13/2018 10:43 A
[2018-08-13] MEDS: HumaLOG INSULIN (NovoLOG) PER UNIT SC SCH ×4 (09:27→19:38)
[2018-08-13] MEDS: ATORVASTATIN 20 MG TAB PO SCH (09:28)
[2018-08-13] MEDS: ASPIRIN 300 MG SUPP PR SCH (09:28)
[2018-08-13] MEDS: CLOPIDOGREL 75 MG TAB PO SCH (09:28)
--- NOTE | 2018-08-13 11:45 | IPNPDOC ---
Date Seen The patient was seen on 08/13/18. Progress Note SUBJECTIVE: Patient was seen and examined this morning. The patient has advanced dementia. She is accompanied by her who answers questions. He states that regarding her mentation she appears at her baseline. OBJECTIVE PHYSICAL EXAMINATION: VITAL SIGNS: Please see below. GENERAL: Awake and alert. She is not oriented. She is in no acute distress. Lying in exam bed HEENT: Atruamtic normocephalic. Trachea is midline. Eyes are non-icteric. Mucous membranes are slightly dry CARDIOVASCULAR: Normal S1, S2. Regular rate and rhythm. No clicks, rubs, or murmurs. RESPIRATORY: Clear vesicular breath sounds bilaterally with good respiratory effort ABDOMINAL: Soft, nontender to palpation in all 4 quadrants. Nondistended. Positive bowel sounds throughout EXTREMITIES: No edema. Full and equal pulses in bilateral upper and lower extremities NEUROLOGICAL: No focal neurological deficits. Memory difficulty PSYCHOLOGICAL: Mood and affect appear appropriate. LABORATORY DATA, IMAGING STUDIES, MICROBIOLOGY: Please see below. DVT prophylaxis ordered?: Lovenox ASSESSMENT AND PLAN: This is a -year-old [RACE] [GENDER] with . PROBLEMS: 1. Acute Metabolic Encephalopathy w/ history of chronic and progressive alzhiemer's dementia -Was felt to be secondary to uremia, CKD stage 5 with decreased oral intake. -She had recently used Macrodantin which may have contributed to her uremia a nd MARIA ESTHER -Patient has been advanced to pureed diet. -PT/OT evaluation 2. Acute on chronic kidney disease stage 5 with uremic encephalopathy -Creatinine currently 2.18 and trending down -Patient has been receiving IV hydration will continue -Avoid nephrotoxic agents -Family has refused dialysis -Patient is being followed by nephrology 3. Hypernatremia/Dehydration -Hypernatremia likely 2/2 poor oral intake. -Patients family has denied any recent vomiting, diarrhea 4. NSTEMI, type 2 -history of CAD s/p CABG in 1998 - and daughter confirm conservative medical management -Patient is on Lovenox and ACS protocol -Patient has been seen by Cardiology and they continue to follow 5. Atrial Fibrillation, New Onset -Currently on Lovenox due to NSTEMI 6. NSVT -Patient has history of CAD/NSTEMI -Echo ordered 7. HTN -May consider continuing lasix today however Blood pressures have been soft 8. CHF, Grade 1 diastolic dysfunction EF 50% -Echocardiogram pending 9. IDDM2 -Currently controlled -Basal insulin -Hypoglycemic protocol 10. DLP -Statin 11. Iron/deficiency anemia -Continue with supplementation 12. Questionable COPD -Patient hold no formal diagnosis of COPD -ABG does not suggest an acute respiratory acidosis -Patient currently on room air. 13. DVT prophylaxis -Lovenox DISPOSITION: Patient will work with PT/OT. Overall prison prognosis is poor and guarded A-FIB/CHADSVASC A-FIB History Current/History of A-Fib/PAF?: Yes Current Oral Anticoagulant The: No Treatment Treatment ordered: Other (Lovenox) VS, I&O, 24H, Fishbone Vital Signs/I&O Vital Signs Date Time Temp Pulse Resp B/P (MAP) Pulse Ox O2 Delivery O2 Flow Rate FiO2 08/13/18 08:00 97.9 86 19 107/59 (75) 96 08/12/18 19:00 Room Air 08/12/18 13:00 1.0 I&O- Last 24 Hours up to 6 AM 08/13/18 06:00 Intake Total 2301 ml Output Total 1175 ml Balance 1126 ml Laboratory Data 24H LABS Laboratory Tests 2 08/12/18 12:07: Bedside Glucose (Misc Panel) 67L 08/12/18 13:24: Bedside Glucose (Misc Panel) 95 08/12/18 17:10: Bedside Glucose (Misc Panel) 137H 08/12/18 18:21: Anion Gap 5L, Glomerular Filtration Rate 21.1L, Blood Urea Nitrogen 87H, Creatinine 2.35H, Sodium Level 150H, Potassium Level 4.3, Chloride Level 122H, Carbon Dioxide Level 23, Calcium Level 9.0, Total Creatine Kinase 224H, Creatine Kinase MB 19.0H, Creatine Kinase MB Relative Index 8.53H, Troponin I 16.00*H 08/12/18 20:31: Bedside Glucose (Misc Panel) 179H 08/12/18 23:30: Anion Gap 6L, Glomerular Filtration Rate 21.9L, Blood Urea Nitrogen 79H, Creatinine 2.27H, Sodium Level 148H, Potassium Level 4.1, Chloride Level 117H, Carbon Dioxide Level 25, Calcium Level 8.5L, Total Creatine Kinase 175, Creatine Kinase MB 14.0H, Creatine Kinase MB Relative Index 7.77H, Troponin I 13.50*H 08/13/18 03:37: Anion Gap 5L, Glomerular Filtration Rate 23.0L, Blood Urea Nitrogen 75H, Creatinine 2.18H, Sodium Level 145, Potassium Level 3.7, Chloride Level 118H, Carbon Dioxide Level 22, Calcium Level 8.4L, Immature Granulocyte % (Auto) 0.9, White Blood Count 9.3, Red Blood Count 3.97L, Hemoglobin 11.0L, Hematocrit 37.0, Mean Corpuscular Volume 93.2, Mean Corpuscular Hemoglobin 27.7, Mean Corpuscular Hemoglobin Concent 29.7L, Red Cell Distribution Width 13.9, Platelet Count 157, Neutrophils (%) (Auto) 75.4H, Lymphocytes (%) (Auto) 15.0L, Monocytes (%) (Auto) 6.3H, Eosinophils (%) (Auto) 2.3, Basophils (%) (Auto) 0.1, Neutrophils # (Auto) 7.0, Lymphocytes # (Auto) 1.4L, Monocytes # (Auto) 0.6, Eosinophils # (Auto) 0.2, Basophils # (Auto) 0.0, Nucleated Red Blood Cells % (auto) 0.0 CBC/BMP Laboratory Tests 08/12/18 18:21 Calcium Level 9.0, Total Creatine Kinase 224 H 08/12/18 23:30 Calcium Level 8.5 L 08/13/18 03:37 Calcium Level 8.4 L, Red Blood Count 3.97 L, Mean Corpuscular Volume 93.2, Mean Corpuscular Hemoglobin 27.7, Mean Corpuscular Hemoglobin Concent 29.7 L, Red Cell Distribution Width 13.9, Neutrophils (%) (Auto) 75.4 H, Lymphocytes (%) (Auto) 15.0 L, Monocytes (%) (Auto) 6.3 H, Eosinophils (%) (Auto) 2.3, Basophils (%) (Auto) 0.1, Neutrophils # (Auto) 7.0, Lymphocytes # (Auto) 1.4 L, Monocytes # (Auto) 0.6, Eosinophils # (Auto) 0.2, Basophils # (Auto) 0.0 Microbiology Microbiology 08/10/18 Blood Culture - Preliminary, Resulted No Growth after 48 hours. All Specime... 5/4/19 Blood Culture - Preliminary, Resulted No Growth after 48 hours. All Specime... 08/11/18 MRSA Screen - Final, Complete 08/11/18 Respiratory Virus Panel (PCR) ([facility]) - Final, Complete GME ATTESTATION GME ATTESTATION My faculty preceptor for this patient encounter was physically present during the encounter and was fully available. All aspects of the patient interview, examination, medical decision making process, and medical care plan development were reviewed and approved by the faculty preceptor. The faculty preceptor is aware and concurs with the plan as stated in the body of this note and will attest to such by his/her cosignature. ATTENDING NOTE I, Jesus Johansen, have both independently examined this patient as well as reviewed the documentation. I have discussed in detail with the resident the findings and plan of treatment as documented by the resident. I agree with their findings and treatment plan. I will continue to follow the patient and offer further guidance to the patients care as necessary during this hospital stay. KAVYA MORGAN DO August 13, 2018 11:45 JESUS JOHANSEN MD August 13, 2018 15:26
[2018-08-13 13:19] LABS: CALCIUM LEVEL 8.7 MG/DL (8.8-10.2); CREATININE FOR GFR 2.24 MG/DL (0.55-1.30); GLOMERULAR FILTRATION RATE 22.3 (>32); POTASSIUM SERUM 3.8 MEQ/L (3.5-5.1)
[2018-08-13 18:23] LABS: CALCIUM LEVEL 8.7 MG/DL (8.8-10.2); CREATININE FOR GFR 2.17 MG/DL (0.55-1.30); GLOMERULAR FILTRATION RATE 23.1 (>32); POTASSIUM SERUM 3.6 MEQ/L (3.5-5.1)
[2018-08-13] MEDS: ENOXAPARIN 60 MG/0.6 ML SYR (J1650) SC SCH (19:38)
--- NOTE | 2018-08-13 23:40 | IPN ---
DATE: 08/13/2018 SUBJECTIVE: Patient seen and examined this morning at the bedside. is present at the bedside. He reports that patient appears to be returning back to her baseline mentation, which is baseline dementia. She was speaking nonsensical sentences while I was in the room. She was able to tell me her name and her date and also her 's name. And apparently she is starting to tolerate some oral intake as well. Labs show renal function has recovered fairly back to her baseline, and her hypernatremia has resolved. VITAL SIGNS: Temperature 99.4, pulse 80, respiratory rate 19, blood pressure 144/62, saturating 97 to 100% on room air. Intake yesterday was 3.1 liters, urine output yesterday was 975; net positive 2.1 liters. Weight on the bed scale today is 57.7 kg. General: The patient is seen lying in bed. She is awake and alert and makes eye contact. She is mumbling and speaking nonsensical sentences to herself. She is in no apparent respiratory distress. She is oriented only to person and able to tell me her name after much prompting. She is comfortable on room air. Her tongue is moist. Her jugular veins do not appear elevated. Cardiac: S1, S2. There is no edema in the peripheries nor in the dependent area. Lungs show symmetric air entry. She is not very cooperative with physical exam. There is no appreciable wheeze or rhonchus. There is no accessory muscle use. Abdomen is soft. She does not grimace to palpation. There is a Forte catheter present draining clear yellow urine. Extremities show compression stockings. No peripheral edema. Neurologic: She is oriented only to self. Baseline dementia. Does not reliably follow any commands. Skin: Normal turgor and temperature. LABORATORY: White count 9.3, hemoglobin 11.0, platelets 157. Sodium 144, potassium 3.6, chloride 117, BUN 75, creatinine 2.1. IMAGING: Chest x-ray today did not show any pulmonary edema nor pleural effusion. INPATIENT MEDICATIONS: I cut the patient's D5W down to 40 mL an hour and subsequently discontinued it. Her remainder of medications are unchanged from prior. PROBLEMS: 1. Acute kidney injury superimposed on chronic kidney disease stage IV. Her acute kidney injury has resolved over the course of this admission with IV fluids and correction of the free water deficit. Her renal function has now recovered fairly close back to her usual baseline. Creatinine today is 2.1, and her BUN has improved over the course of this admission from 142 down to 75. Her electrolytes are acceptable. She is starting to tolerate some oral intake. As she has been receiving IV fluids for the past several days, I am now going to stop the IV fluids and see how her renal function fairs. 2. Hypernatremia secondary to decreased oral intake. She was appropriately put on hypotonic fluids, D5W yesterday, and her sodium levels have corrected to normal range. I am going to discontinue the IV fluids now as she is normonatremic and fairly close to her baseline renal function. We will continue to monitor a daily renal panel and urine output. She is now on an oral diet and would encourage intake as tolerated. 3. Diastolic congestive heart failure. Volume status presently is acceptable. Chest x-ray today did not show any pulmonary edema nor pleural effusions. Her daily urine output is slowly improving. I am stopping the IV fluids at this point, and we will reassess her volume status daily. She is saturating very well on room air, and there is no need for diuretic at present.
[2018-08-14] VITALS (16 sets, daily range): BP systolic 76–132; BP diastolic 38–63; O2SAT 95–99
[2018-08-14 01:16] LABS: CALCIUM LEVEL 8.5 MG/DL (8.8-10.2); CREATININE FOR GFR 1.99 MG/DL (0.55-1.30); GLOMERULAR FILTRATION RATE 25.5 (>32); POTASSIUM SERUM 3.6 MEQ/L (3.5-5.1)
[2018-08-14] MEDS: ACETAMINOPHEN TAB 650MG DOSE (2X325MG) PO PRN (02:47)
[2018-08-14] MEDS ORDERED: LR 1,000 ML IV ONE ×2 (04:15→05:30)
[2018-08-14] MEDS ORDERED: MORPHINE SULFATE ORAL SOLN 10 MG/5 ML UD PO PRN (04:15)
--- NOTE | 2018-08-14 05:18 | IPNPDOC ---
Text Note Date of Service The patient was seen on 08/14/18. NOTE Earlier pt was hypotensive and restless. She was fully alert and not in resp d istress. She said she was not feeling well, but could not give specific details. She said she wanted to go home. BP 76/40, HR 120-130/in with baseline LBBB on the monitor. Suspect progression of NC. cardiac markers were ordered, but blood drawing was unsuccessful due to poor access. PLAN: 1L LR bolus, oral morphine for comfort. <repeat BP after bolus 80/54, HR 120; give another liter bolus; monitor> RECOMMEND: discussion of goal of care with family during the day. Pt is appropriate for hospice referral and comfort care if agreed by family. A-FIB/CHADSVASC A-FIB History Current/History of A-Fib/PAF?: No VS,Fishbone, I+O VS, Fishbone, I+O Laboratory Tests 08/13/18 12:22 Calcium Level 8.7 L 08/13/18 17:48 Calcium Level 8.7 L 08/14/18 00:30 Calcium Level 8.5 L Vital Signs Date Time Temp Pulse Resp B/P (MAP) Pulse Ox O2 Delivery O2 Flow Rate FiO2 08/14/18 03:41 99.4 129 34 76/40 (52) 98 08/13/18 19:00 Room Air 08/12/18 13:00 1.0 I&O- Last 24 Hours up to 6 AM 08/14/18 06:00 Intake Total 780 ml Output Total 1025 ml Balance -245 ml BONG WONG MD August 14, 2018 05:18
[2018-08-14 05:23] LABS: BASO % 0.1 % (0.0-1.0); EOS # 0.1 10^3/uL (0.0-0.50); EOS % 0.6 % (0.0-3.0); HEMATOCRIT 25.2 % (36.0-47.0); LYMPH # 1.5 10^3/uL (1.5-4.5); LYMPH % 13.1 % (24.0-44.0); MEAN CORPUSCULAR HEMOGLOBIN 28.5 pg (27.0-33.0); MONO # 0.7 10^3/uL (0.0-0.8); MONO % 5.6 % (0.0-5.0); NEUTROPHILS # 9.3 10^3/uL (1.8-7.7); NEUTROPHILS % 79.2 % (36.0-66.0); PLATELET COUNT, AUTOMATED 202 10^3/uL (150-450); RED BLOOD COUNT 2.74 10^6/uL (4.00-5.40); WHITE BLOOD COUNT 11.8 10^3/uL (4.0-10.0)
[2018-08-14 05:32] LABS: HEMOGLOBIN 7.8 g/dl (12.0-15.5)
[2018-08-14 05:52] LABS: MB/CK RELATIVE INDEX 6.82 (< OR =4); TROPONIN I 8.66 NG/ML (< 0.10)
[2018-08-14] MEDS: CLOPIDOGREL 75 MG TAB PO SCH (09:00)
[2018-08-14] MEDS: HumaLOG INSULIN (NovoLOG) PER UNIT SC SCH ×4 (10:15→19:58)
[2018-08-14] MEDS: PANTOPRAZOLE 40MG INJ (PROTONIX) (C9113) IV SCH ×2 (10:31→19:57)
[2018-08-14] MEDS: ATORVASTATIN 20 MG TAB PO SCH (10:31)
[2018-08-14 16:41] LABS: CREATININE FOR GFR 2.56 MG/DL (0.55-1.30); GLOMERULAR FILTRATION RATE 19.1 (>32); POTASSIUM SERUM 4.8 MEQ/L (3.5-5.1)
--- NOTE | 2018-08-14 18:24 | IPNPDOC ---
Date Seen The patient was seen on 08/14/18. Progress Note SUBJECTIVE: Patient was seen and examined this morning. Last night she had become hypotensive and has had a significant drop in her hemoglobin. Her lactic acid has continued to increase. The patient appears to be doing poorly clinically. She has received multiple IV fluid boluses and PRBC infusions. Her BPs have appeared to have stabilized although remain soft. She has had bloody bowel movements reported and likely has a GI bleed. OBJECTIVE PHYSICAL EXAMINATION: VITAL SIGNS: Please see below. GENERAL: Awake, and alert. She is not oriented due to her progressive dementia. Does not appear in acute distress but is ill appearing HEENT:Atruamtic normocephalic. Eyes are nonicteric. Trachea is midline. Mucous membranes are pink and moist CARDIOVASCULAR: Irregularly irregular rhythm. Tachycardic rate. No clicks, rubs, or murmurs RESPIRATORY: Clear cesicular breath sounds bilaterally. No crackles, no wheezes, no rhonici, no rales ABDOMINAL: Soft, slightly distended, nontender to palpation throughout. Positive bowel sounds throughout EXTREMITIES: No edema. Palpable pulses in bilateral lower extremities NEUROLOGICAL: No focal neurological deficits PSYCHOLOGICAL: Mood and affect appear appropriate LABORATORY DATA, IMAGING STUDIES, MICROBIOLOGY: Please see below. DVT prophylaxis ordered?: NO. Current GI bleed ASSESSMENT AND PLAN: Patient is an 82 year old female who presented with acute metabolic encephalopathy with progressive dementia, acute kidney injury, NSTEMI and new onset atrial fibrillation PROBLEMS: 1. Symptomatic Acute Blood Loss Anemia likely 2/2 GI bleed -Patient had become hypotensive last night. She was given IV fluid resuscitation. Hgb was 7.8. Patient was transfused 2 units PRBCs. Her blood pressures have stabilized although they continue to be soft. Her family has refused central line placement. The patient has had multiple bloody bowel movements although her fecal occult was negative. Her family has declined a colonoscopy and EGD. They have agreed to supportive measures. -Have discontinued Lovenox. Will hold Plavix -Will continue to transfuse as necessary. Patients lactic acid continues to rise. -Patient has an overall poor prognosis -Protonix 2. NSTEMI Type 2 -Patient has elevated troponin. She has been on lovenox and plavix. This has been discontinued as patient has an acute GI bleed. -Cardiology on consult 3. New onset Atrial fibrillation -Currently off of lovenox due to NSTEMI 4. NSVT -History of NSTEMI -Patient is currently on tele 5. HTN -Patient has been hypotensive. Holding BP medication 6. IDDM2 -Currently controlled -Sliding scale -Hypoglycemic protocol 7. DVT Prophylaxis -Currently on hold secondary to active GI bleed DISPOSITION: Overall poor prognosis. Patient is currently stabilized however has active GI bleed. A-FIB/CHADSVASC A-FIB History Current/History of A-Fib/PAF?: Yes Current Oral Anticoagulant The: No Age/Risk Factor Scoring CHADSVASC: CHADSVASC Response (Comments) Value Age Risk Factor Age >/= 75 years old 2 Total 2 Treatment Treatment ordered: Holding Other (Lovenoc) Reason Anticoagulant not given: Current bleeding VS, I&O, 24H, Fishbone Vital Signs/I&O Vital Signs Date Time Temp Pulse Resp B/P (MAP) Pulse Ox O2 Delivery O2 Flow Rate FiO2 08/14/18 08:00 97.7 123 28 90/52 (65) 99 08/13/18 19:00 Room Air 08/12/18 13:00 1.0 I&O- Last 24 Hours up to 6 AM 08/14/18 06:00 Intake Total 780 ml Output Total 1025 ml Balance -245 ml Laboratory Data 24H LABS Laboratory Tests 2 08/13/18 17:16: Bedside Glucose (Misc Panel) 173H 08/13/18 17:48: Anion Gap 6L, Glomerular Filtration Rate 23.1L, Blood Urea Nitrogen 75H, Creatinine 2.17H, Sodium Level 144, Potassium Level 3.6, Chloride Level 117H, Carbon Dioxide Level 21, Calcium Level 8.7L 08/13/18 19:35: Bedside Glucose (Misc Panel) 243H 08/14/18 00:30: Anion Gap 4L, Glomerular Filtration Rate 25.5L, Blood Urea Nitrogen 66H, Creatinine 1.99H, Sodium Level 145, Potassium Level 3.6, Chloride Level 117H, Carbon Dioxide Level 24, Calcium Level 8.5L 08/14/18 03:46: Bedside Glucose (Misc Panel) 303H 08/14/18 05:12: Immature Granulocyte % (Auto) 1.4, White Blood Count 11.8H, Red Blood Count 2.74L, Hemoglobin 7.8#L, Hematocrit 25.2L, Mean Corpuscular Volume 92.0, Mean Corpuscular Hemoglobin 28.5, Mean Corpuscular Hemoglobin Concent 31.0L, Red Cell Distribution Width 13.6, Platelet Count 202, Neutrophils (%) (Auto) 79.2H, Lymphocytes (%) (Auto) 13.1L, Monocytes (%) (Auto) 5.6H, Eosinophils (%) (Auto) 0.6, Basophils (%) (Auto) 0.1, Neutrophils # (Auto) 9.3H, Lymphocytes # (Auto) 1.5, Monocytes # (Auto) 0.7, Eosinophils # (Auto) 0.1, Basophils # (Auto) 0.0, Nucleated Red Blood Cells % (auto) 0.0, Lactic Acid Level 3.8*H, Total Creatine Kinase 66, Creatine Kinase MB 4.0H, Creatine Kinase MB Relative Index 6.82H, Troponin I 8.66#*H 08/14/18 09:32: Lactic Acid Followup at 4 Hours 6.1*H 08/14/18 11:50: Bedside Glucose (Misc Panel) 361H CBC/BMP Laboratory Tests 08/13/18 17:48 Calcium Level 8.7 L 08/14/18 00:30 Calcium Level 8.5 L 08/14/18 05:12 Red Blood Count 2.74 L, Mean Corpuscular Volume 92.0, Mean Corpuscular Hemoglobin 28.5, Mean Corpuscular Hemoglobin Concent 31.0 L, Red Cell Distribution Width 13.6, Neutrophils (%) (Auto) 79.2 H, Lymphocytes (%) (Auto) 13.1 L, Monocytes (%) (Auto) 5.6 H, Eosinophils (%) (Auto) 0.6, Basophils (%) (Auto) 0.1, Neutrophils # (Auto) 9.3 H, Lymphocytes # (Auto) 1.5, Monocytes # (Auto) 0.7, Eosinophils # (Auto) 0.1, Basophils # (Auto) 0.0 Microbiology Microbiology 08/10/18 Blood Culture - Preliminary, Resulted No Growth after 72 hours. All specime... 08/10/18 Blood Culture - Preliminary, Resulted No Growth after 72 hours. All specime... 08/14/18 Stool Occult Blood ([facility]) - Final, Complete 08/11/18 MRSA Screen - Final, Complete 08/11/18 Respiratory Virus Panel (PCR) ([facility]) - Final, Complete GME ATTESTATION GME ATTESTATION My faculty preceptor for this patient encounter was physically present during the encounter and was fully available. All aspects of the patient interview, examination, medical decision making process, and medical care plan development were reviewed and approved by the faculty preceptor. The faculty preceptor is aware and concurs with the plan as stated in the body of this note and will attest to such by his/her cosignature. ATTENDING NOTE I, Jesus Johansen, have both independently examined this patient as well as reviewed the documentation. I have discussed in detail with the resident the findings and plan of treatment as documented by the resident. I agree with their findings and treatment plan. I will continue to follow the patient and offer further guidance to the patients care as necessary during this hospital stay. KAVYA MORGAN DO August 14, 2018 18:20 JESUS JOHANSEN MD August 14, 2018 18:29
[2018-08-14] MEDS ORDERED: NS 0.45% 1,000 ML IV SCH (21:00)
[2018-08-14 21:16] LABS: HEMOGLOBIN 10.2 g/dl (12.0-15.5); MEAN CORPUSCULAR HEMOGLOBIN 30.4 pg (27.0-33.0); MEAN CORPUSCULAR VOLUME 89.6 fl (80.0-96.0); PLATELET COUNT, AUTOMATED 147 10^3/uL (150-450); RED BLOOD COUNT 3.35 10^6/uL (4.00-5.40); WHITE BLOOD COUNT 15.5 10^3/uL (4.0-10.0)
[2018-08-15] VITALS (16 sets, daily range): BP systolic 110–137; BP diastolic 51–78; O2SAT 78–99
[2018-08-15 05:05] LABS: BASO % 0.2 % (0.0-1.0); EOS # 0.2 10^3/uL (0.0-0.50); EOS % 1.5 % (0.0-3.0); HEMATOCRIT 31.1 % (36.0-47.0); HEMOGLOBIN 10.4 g/dl (12.0-15.5); LYMPH % 12.5 % (24.0-44.0); MEAN CORPUSCULAR HGB CONC 33.4 g/dl (32.0-36.5); MEAN CORPUSCULAR VOLUME 89.6 fl (80.0-96.0); MONO # 1.1 10^3/uL (0.0-0.8); MONO % 6.6 % (0.0-5.0); NEUTROPHILS # 12.7 10^3/uL (1.8-7.7); NEUTROPHILS % 77.9 % (36.0-66.0); PLATELET COUNT, AUTOMATED 163 10^3/uL (150-450); RED BLOOD COUNT 3.47 10^6/uL (4.00-5.40); WHITE BLOOD COUNT 16.3 10^3/uL (4.0-10.0)
--- NOTE | 2018-08-15 06:49 | IPN ---
DATE: 08/14/2018 SUBJECTIVE: Anne is seen and examined this morning at the bedside. Overnight events are noted. She became significantly hypotensive overnight. She was bolused IV fluids, received 2 liters of Lactated Ringer's, she had elevated lactic acidosis. Her labs today revealed a 3 point drop in hemoglobin. She was subsequently transfused 3 units of packed red blood cells. Her aspirin and Lovenox were discontinued. Her family was very involved in her care. They have presently declined colonscopy/procedures, central line. They have agreed to IV fluids and blood product administration. Her urine output has been poor overnight with about 150 mL in 12 hours. The patient herself remains pleasantly demented. VITAL SIGNS: Temperature 97.6, pulse 69, respiratory rate 18, blood pressure 95/58, saturating 95 to 100% on room air. Intake yesterday was 1180 mL, urine output yesterday was 1475; urine output over the day so far today is 400 mL. General: The patient is seen lying in bed awake and alert, but oriented only to self, pleasantly demented, in no acute respiratory or painful distress. Makes eye contact. Neck is supple. Jugular veins do not appear elevated. Heart sounds irregularly irregular. There is no edema in the peripheries. Lungs show symmetric air entry bilaterally. No crackles, rales or wheeze. Abdomen is soft. She does not grimace to palpation. There are bowel sounds. Extremities show compression stockings. No peripheral edema. Her radial pulses are 2+ and palpable. Skin shows pallor, normal temperature and turgor. LABORATORY: Sodium 145, potassium 4.8, bicarbonate 21, BUN 98, creatinine 2.5. Lactic acid 6.1, repeat lactic acid 2.9. Hemoglobin 7.8, repeat hemoglobin 10.2. INPATIENT MEDICATIONS: I have started the patient on 1/2 NS at 50 mL an hour. She received 2 liters of Lactated Ringer's overnight. Her aspirin is discontinued. Her Lovenox is discontinued. She is started on Protonix 40 mg IV every 12 hours and morphine as needed for pain. Remainder of medications are unchanged from prior. PROBLEMS: 1. Chronic kidney disease stage IV. Her renal function yesterday had recovered fairly close to baseline, however overnight she then had recurrent and persistent hypotension, development of lactic acidosis, a 3 point drop in hemoglobin, and this GI bleed has culminated also in decreased urine output, has made only about 150 mL overnight of urine, her blood urea nitrogen has risen as expected and the setting of GI bleed. Her creatinine has also again deteriorated. She is receiving supportive care with IV fluids and blood product administration. I discussed the possibility with her family that due to the GI bleed her renal function may again worsen. Will put her on some gentle IV fluids, 1/2 NS at 50 mL an hour. 2. Gastrointestinal (GI) bleed. Hypotensive overnight with lactic acidosis. Received 2 liters Lactated Ringer's. There was a 3 point drop in hemoglobin. She has been transfused 3 units of packed red blood cells. Blood pressures continue to be borderline soft. Family does not want central line placement. Family does not want colonoscopy or endoscopy. Primary team has stopped Plavix and Lovenox. Repeat lactic acid has improved. Continued supportive care with gentle IV fluids and blood product transfusion and CBC monitoring. The patient is on Protonix. 3. Lactic acidosis secondary to hypotension and GI bleed. Peak lactic was 6.1 and then down trended to 2.9 with transfusion of 3 units of packed red blood cells and with IV fluids. Will continue her on some gentle IV fluids overnight, 1/2 NS at 50 mL an hour. 4. Diastolic congestive heart failure. There are no signs of hypervolemia. She is on room air. I have resumed her on hypotonic IV fluids in view of the GI bleed, hypotension, and lactic acidosis. We will reassess her volume status daily.
[2018-08-15 08:14] LABS: CALCIUM LEVEL 8.1 MG/DL (8.8-10.2); CREATININE FOR GFR 2.3 MG/DL (0.55-1.30); GLOMERULAR FILTRATION RATE 21.6 (>32); POTASSIUM SERUM 4.1 MEQ/L (3.5-5.1)
[2018-08-15] MEDS: CLOPIDOGREL 75 MG TAB PO SCH (09:00)
[2018-08-15] MEDS: ATORVASTATIN 20 MG TAB PO SCH (09:22)
[2018-08-15] MEDS: HumaLOG INSULIN (NovoLOG) PER UNIT SC SCH ×4 (09:23→20:13)
[2018-08-15] MEDS: ACETAMINOPHEN TAB 650MG DOSE (2X325MG) PO PRN (09:23)
[2018-08-15] MEDS: PANTOPRAZOLE 40MG INJ (PROTONIX) (C9113) IV SCH ×2 (09:23→20:37)
--- NOTE | 2018-08-15 09:59 | NUR ---
Recommend upgrade to thin liquids, small straw sips OK, assist for all intake. and attending RN educated on compensatory strategies: assist for upright position, small sips. Also recommend provide Ensure supplements d/t poor PO intake and report of pt drinking Boost supplement at home. Addendum: 08/15/[address] [facility] Amended: Links added.
--- NOTE | 2018-08-15 10:57 | IPNPDOC ---
Date Seen The patient was seen on 08/15/18. Progress Note SUBJECTIVE: Patient was seen and examined this morning. She had received multiple units of blood. Her hemoglobin is currently stable. She does have an acute GI bleed and her anticoagulation is currently being held. Her lactic acid is coming down. The patient does have progressive dementia and is unable to provide much of a history. OBJECTIVE PHYSICAL EXAMINATION: VITAL SIGNS: Please see below. GENERAL: Patient is awake and alert. She is not oriented secondary to her advanced dementia. Appears in no acute distress HEENT: Atraumatic normocephalic. Eyes are nonicteric. Trachea is midline. CARDIOVASCULAR: Irregularly irregular rhythm. Tachycardic rate. No clicks rubs, or murmurs RESPIRATORY: Mild scattered crackles. No wheezes, rhonci, or rales ABDOMINAL: Soft, slightly distended. Nontenderness to palpation throughout. No rebound tenderness or guarding EXTREMITIES: No edema. Full and equal pulses in bilateral upper and lower extremities NEUROLOGICAL: No focal neurological deficits. Patient has progressive dementia PSYCHOLOGICAL: Mood and affect appear appropriate LABORATORY DATA, IMAGING STUDIES, MICROBIOLOGY: Please see below. DVT prophylaxis ordered?: NO Current GI bleed ASSESSMENT AND PLAN: Patient is an 82 year old female who presented with acute metabolic encephalopathy with progressive dementia, acute kidney injury, NSTEMI and new onset atrial fibrillation PROBLEMS: 1. Symptomatic Anemia likely 2/2 GI bleed -Patient has had 3 transfusions. Her hbg appears to be somewhat stable at this point although she does have an active GI bleed. -Continue Protonix -Holding anticoagulation -BP have been improved from yesterday 2. NSTEMI Type 2 -Patient has elevated troponin. She has been on lovenox and plavix. This has been discontinued as patient has an acute GI bleed. -Cardiology on consult 3. New onset Atrial fibrillation -Currently off of lovenox due to NSTEMI -Rate is averaging 110 bpm 4. NSVT -History of NSTEMI -Patient is currently on tele 5. HTN -Patient has been hypotensive. Holding BP medication 6. IDDM2 -Currently controlled -Sliding scale -Hypoglycemic protocol 7. DVT Prophylaxis -Currently on hold secondary to active GI bleed DISPOSITION: Patient had mild improvement overnight with blood transfusions. 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 A-FIB/CHADSVASC A-FIB History Current/History of A-Fib/PAF?: Yes Current Oral Anticoagulant The: No Age/Risk Factor Scoring CHADSVASC: CHADSVASC Response (Comments) Value Age Risk Factor Age >/= 75 years old 2 Total 2 Treatment Treatment ordered: Holding Other Reason Anticoagulant not given: Current bleeding VS, I&O, 24H, Fishbone Vital Signs/I&O Vital Signs Date Time Temp Pulse Resp B/P (MAP) Pulse Ox O2 Delivery O2 Flow Rate FiO2 08/15/18 10:00 98 Room Air 08/15/18 08:00 97.7 105 20 110/51 (70) 1.0 I&O- Last 24 Hours up to 6 AM 08/15/18 06:00 Intake Total 730 ml Output Total 1025 ml Balance -295 ml Laboratory Data 24H LABS Laboratory Tests 2 08/14/18 11:50: Bedside Glucose (Misc Panel) 361H 08/14/18 15:52: Anion Gap 5L, Glomerular Filtration Rate 19.1L, Lactic Acid Level 2.9*H, Blood Urea Nitrogen 98H, Creatinine 2.56H, Sodium Level 145, Potassium Level 4.8#, Chloride Level 119H, Carbon Dioxide Level 21, Calcium Level 8.0L 08/14/18 17:03: Bedside Glucose (Misc Panel) 278H 08/14/18 19:51: Bedside Glucose (Misc Panel) 314H 08/14/18 21:03: Nucleated Red Blood Cells % (auto) 0.1H 08/15/18 04:29: Anion Gap 10, Glomerular Filtration Rate 21.6L, Blood Urea Nitrogen 89H, Creatinine 2.30H, Sodium Level 151H, Potassium Level 4.1, Chloride Level 119H, Carbon Dioxide Level 22, Calcium Level 8.1L 08/15/18 04:33: Nucleated Red Blood Cells % (auto) 0.1H, Immature Granulocyte % (Auto) 1.3, White Blood Count 16.3H, Red Blood Count 3.47L, Hemoglobin 10.4L, Hematocrit 31.1L, Mean Corpuscular Volume 89.6, Mean Corpuscular Hemoglobin 30.0, Mean Corpuscular Hemoglobin Concent 33.4, Red Cell Distribution Width 14.1, Platelet Count 163, Neutrophils (%) (Auto) 77.9H, Lymphocytes (%) (Auto) 12.5L, Monocytes (%) (Auto) 6.6H, Eosinophils (%) (Auto) 1.5, Basophils (%) (Auto) 0.2, Neutr ophils # (Auto) 12.7H, Lymphocytes # (Auto) 2.0, Monocytes # (Auto) 1.1H, Eosinophils # (Auto) 0.2, Basophils # (Auto) 0.0 08/15/18 07:42: Bedside Glucose (Misc Panel) 170H CBC/BMP Laboratory Tests 08/14/18 15:52 Calcium Level 8.0 L 08/14/18 21:03 Red Blood Count 3.35 L, Mean Corpuscular Volume 89.6, Mean Corpuscular Hemoglobin 30.4, Mean Corpuscular Hemoglobin Concent 34.0, Red Cell Distribution Width 13.7 08/15/18 04:29 Calcium Level 8.1 L 08/15/18 04:33 Red Blood Count 3.47 L, Mean Corpuscular Volume 89.6, Mean Corpuscular Hemoglobin 30.0, Mean Corpuscular Hemoglobin Concent 33.4, Red Cell Distribution Width 14.1, Neutrophils (%) (Auto) 77.9 H, Lymphocytes (%) (Auto) 12.5 L, Monocytes (%) (Auto) 6.6 H, Eosinophils (%) (Auto) 1.5, Basophils (%) (Auto) 0.2, Neutrophils # (Auto) 12.7 H, Lymphocytes # (Auto) 2.0, Monocytes # (Auto) 1.1 H, Eosinophils # (Auto) 0.2, Basophils # (Auto) 0.0 Microbiology Microbiology 08/10/18 Blood Culture - Preliminary, Resulted No Growth after 72 hours. All specime... 08/10/18 Blood Culture - Preliminary, Resulted No Growth after 72 hours. All specime... 08/14/18 Stool Occult Blood (ELLEN) - Final, Complete 08/11/18 MRSA Screen - Final, Complete 08/11/18 Respiratory Virus Panel (PCR) (ELLEN) - Final, Complete GME ATTESTATION GME ATTESTATION My faculty preceptor for this patient encounter was physically present during the encounter and was fully available. All aspects of the patient interview, examination, medical decision making process, and medical care plan development were reviewed and approved by the faculty preceptor. The faculty preceptor is aware and concurs with the plan as stated in the body of this note and will attest to such by his/her cosignature. ATTENDING NOTE I, Jesus Johansen, have both independently examined this patient as well as reviewed the documentation. I have discussed in detail with the resident the findings and plan of treatment as documented by the resident. I agree with their findings and treatment plan. I will continue to follow the patient and offer further guidance to the patients care as necessary during this hospital stay. I have had an extensive discussion with the and Daughter about goals of care. Currently patient's family do not want to pursue anything aggressive. They do not want to have a central line, EGD or colonoscopy at this time. We will con tinue with conservative measures at this time with fluid resuscitation and transfusions. 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 KAVYA MORGAN DO August 15, 2018 10:57 JESUS JOHANSEN MD August 15, 2018 13:55
[2018-08-15 12:01] LABS: HEMATOCRIT 27.9 % (36.0-47.0); HEMOGLOBIN 9.3 g/dl (12.0-15.5)
[2018-08-15] MEDS: D5W 1,000 ML IV SCH (14:04)
[2018-08-15 17:59] LABS: HEMATOCRIT 29.2 % (36.0-47.0); HEMOGLOBIN 9.6 g/dl (12.0-15.5)
[2018-08-15] MEDS ORDERED: traZODone 50 MG TAB PO ONE (21:00)
[2018-08-15] MEDS: RAMELTEON 8 MG TAB (ROZEREM) PO SCH (21:00)
[2018-08-16 00:10] LABS: HEMATOCRIT 30.1 % (36.0-47.0); HEMOGLOBIN 9.7 g/dl (12.0-15.5)
[2018-08-16 04:00] VITALS: BP 154/65
[2018-08-16 06:29] LABS: BASO % 0.1 % (0.0-1.0); EOS # 0.3 10^3/uL (0.0-0.50); EOS % 2.4 % (0.0-3.0); HEMATOCRIT 29.6 % (36.0-47.0); HEMOGLOBIN 9.7 g/dl (12.0-15.5); LYMPH % 14.9 % (24.0-44.0); MEAN CORPUSCULAR HEMOGLOBIN 29.4 pg (27.0-33.0); MEAN CORPUSCULAR HGB CONC 32.8 g/dl (32.0-36.5); MEAN CORPUSCULAR VOLUME 89.7 fl (80.0-96.0); MONO % 7.2 % (0.0-5.0); NEUTROPHILS # 9.9 10^3/uL (1.8-7.7); NEUTROPHILS % 72.7 % (36.0-66.0); PLATELET COUNT, AUTOMATED 174 10^3/uL (150-450); WHITE BLOOD COUNT 13.7 10^3/uL (4.0-10.0)
[2018-08-16 06:56] LABS: CALCIUM LEVEL 8.2 MG/DL (8.8-10.2); CREATININE FOR GFR 2.11 MG/DL (0.55-1.30); GLOMERULAR FILTRATION RATE 23.9 (>32); POTASSIUM SERUM 3.9 MEQ/L (3.5-5.1)
--- NOTE | 2018-08-16 07:31 | IPN ---
DATE: 08/15/2018 SUBJECTIVE: Patient seen and examined this morning on the bedside. There was no family present at the time of my visit. I found the patient to be pleasantly demented in no distress. Her blood pressure have improved as compared to yesterday. She remains on room air. Laboratory studies show stabilization of hemoglobin and also new hypernatremia. VITAL SIGNS: Temperature 97.4, pulse 98, respiratory rate 20, blood pressure 114/76, saturating 99% on room air. Intake yesterday was 600. Urine output yesterday was 700. Weight in the bed scale today was 58.8 kg which is significantly different from prior. PHYSICAL EXAMINATION: Patient is seen lying in bed, somewhat restless, trying to get out and fidgeting with the Forte tubing. She is oriented only to self presently demented and in no respiratory distress. She makes eye contact. Neck is supple, Jugular veins do not appear elevated. Heart sounds are irregularly irregular. There is no edema in the periphery. Lungs show symmetric air entry. She is not cooperative with physical exam but there is no appreciable crackle, rale or wheeze. The abdomen is soft and she does not grimace to palpation. There is a Forte catheter present, draining clear yellow urine. Extremities show compression stocking and no peripheral edema. Her renal pulses are palpable. LABS: Sodium 151, potassium 4.1, BUN 89, creatinine 2.3, hemoglobin 9.6. INPATIENT MEDICATIONS: I started the patient on D5W at 50 mL an hour for 1.5 liters. Her remainder of medications are unchanged from prior. PROBLEMS: 1. Chronic kidney disease stage 4. Presently with a recurrent acute kidney injury this time in the setting of GI bleed, hypotension, lactic acidosis and subsequent decrease in urine output. There is a free water deficit. She is hypernatremic. I have put her on hypotonic fluids at a gentle rate of 50 mL an hour. She also had a significant rise in blood urea nitrogen and that is due to red blood cells in the digestive tract. Continue with supportive care with gentle hypotonic fluid. 2. Gastrointestinal bleed. Status-post 3 units of packed red blood cells. Continue the CBC monitoring. Hemoglobin and hematocrit have stabilized. Her anticoagulants were discontinued (she does remain on Plavix). Her repeat lactic acid improved. 3. Diastolic congestive heart failure. Volume status is presently acceptable. Continue hypotonic fluids in view of free water deficit and poor oral intake.
[2018-08-16 08:09] VITALS: BP 122/65
[2018-08-16] MEDS: HumaLOG INSULIN (NovoLOG) PER UNIT SC SCH ×4 (09:35→21:00)
[2018-08-16] MEDS: D5W 1,000 ML IV SCH (09:36)
[2018-08-16] MEDS: ATORVASTATIN 20 MG TAB PO SCH (09:36)
[2018-08-16] MEDS: CLOPIDOGREL 75 MG TAB PO SCH (09:36)
[2018-08-16] MEDS: PANTOPRAZOLE 40MG TAB (PROTONIX) PO SCH ×2 (09:36→21:23)
--- NOTE | 2018-08-16 09:57 | NUR ---
Recommend continue pureed diet w/ the exception of regular toast, no crust, extra butter as a preferred food item d/t poor PO intake. Please provide Ensure. Thin liquids. Full assist for meals. Addendum: 08/16/18 at 0959 by [facility] Amended: Links added.
--- NOTE | 2018-08-16 10:00 | IPNPDOC ---
Date Seen The patient was seen on 08/16/18. Progress Note SUBJECTIVE: Patient was seen and examined this morning. She appears more active this morning. There were no adverse events reported overnight. She has not had any more bloody bowel movements. OBJECTIVE PHYSICAL EXAMINATION: VITAL SIGNS: Please see below. GENERAL: Awake and alert. She is not oriented due to her progressive dementia. She does not appear to be in acute distress HEENT: Atrumatic, normocephalic. Eyes are nonicteric. Trachea is midline. Mucous membranes are pink and moist CARDIOVASCULAR: Irregularly irregular rhythm. Tachycardic. No clicks, rubs, or murmurs. RESPIRATORY: clear breath sounds bilaterally. No wheezes. Mild scattered crackles in the bases bilaterally. ABDOMINAL: Soft, slightly distended. Nontender to palpation. No rebound tenderness or guarding. Positive bowel sounds EXTREMITIES: No edema. Palpable pulses in bilateral upper and lower extremities NEUROLOGICAL: No focal neurological deficits. Mentation consistent with patients baseline progressive dementia PSYCHOLOGICAL: Mood and affect appear appropriate LABORATORY DATA, IMAGING STUDIES, MICROBIOLOGY: Please see below. DVT prophylaxis ordered?: No. Current GI bleed ASSESSMENT AND PLAN: Patient is an 82 year old female who presented with acute metabolic encephalopathy with progressive dementia, acute kidney injury, NSTEMI and new onset atrial fibrillation PROBLEMS: 1. Symptomatic Acute Blood Loss Anemia likely 2/2 GI bleed -Patient has had 3 transfusions. Her hbg appears to be somewhat stable at this point although she does have an active GI bleed. -There have been no more bloody bowel movements reported -Protonix transitioned to PO -Holding anticoagulation -Blood pressure has remained stable 2. NSTEMI Type 2 -Patient has elevated troponin. She has been on lovenox and plavix. This has been discontinued as patient has an acute GI bleed. -Cardiology on consult 3. New onset Atrial fibrillation -Currently off of lovenox due to NSTEMI -Rate is averaging 110 bpm 4. NSVT -History of NSTEMI -Patient is currently on tele 5. HTN -Patient has been hypotensive. Holding BP medication 6. IDDM2 -Currently controlled -Sliding scale -Hypoglycemic protocol 7. DVT Prophylaxis -Currently on hold secondary to active GI bleed DISPOSITION: Patient has made improvements. 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 A-FIB/CHADSVASC A-FIB History Current/History of A-Fib/PAF?: Yes Current Oral Anticoagulant The: No Age/Risk Factor Scoring CHADSVASC: CHADSVASC Response (Comments) Value Age Risk Factor Age >/= 75 years old 2 Total 2 Treatment Treatment ordered: Holding Other Reason Anticoagulant not given: Current bleeding VS, I&O, 24H, Fishbone Vital Signs/I&O Vital Signs Date Time Temp Pulse Resp B/P (MAP) Pulse Ox O2 Delivery O2 Flow Rate FiO2 08/16/18 08:09 97.9 96 19 122/65 (84) 100 08/16/18 04:00 1.0 08/15/18 18:00 Room Air I&O- Last 24 Hours up to 6 AM 08/16/18 06:00 Intake Total 610 ml Output Total 700 ml Balance -90 ml Laboratory Data 24H LABS Laboratory Tests 2 08/15/18 11:19: Bedside Glucose (Misc Panel) 230H 08/15/18 18:08: Bedside Glucose (Misc Panel) 226H 08/15/18 20:11: Bedside Glucose (Misc Panel) 164H 08/16/18 06:05: Immature Granulocyte % (Auto) 2.7, White Blood Count 13.7H, Red Blood Count 3.30L, Hemoglobin 9.7L, Hematocrit 29.6L, Mean Corpuscular Volume 89.7, Mean Corpuscular Hemoglobin 29.4, Mean Corpuscular Hemoglobin Concent 32.8, Red Cell Distribution Width 14.9H, Platelet Count 174, Neutrophils (%) (Auto) 72.7H, Lymphocytes (%) (Auto) 14.9L, Monocytes (%) (Auto) 7.2H, Eosinophils (%) (Auto) 2.4, Basophils (%) (Auto) 0.1, Neutrophils # (Auto) 9.9H, Lymphocytes # (Auto) 2.0, Monocytes # (Auto) 1.0H, Eosinophils # (Auto) 0.3, Basophils # (Auto) 0.0, Nucleated Red Blood Cells % (auto) 0.5H, Anion Gap 6L, Glomerular Filtration Rate 23.9L, Blood Urea Nitrogen 64H, Creatinine 2.11H, Sodium Level 146H, Pota ssium Level 3.9, Chloride Level 117H, Carbon Dioxide Level 23, Calcium Level 8.2L CBC/BMP Laboratory Tests 08/15/18 11:47 08/15/18 17:48 08/15/18 23:40 08/16/18 06:05 Red Blood Count 3.30 L, Mean Corpuscular Volume 89.7, Mean Corpuscular Hemoglobin 29.4, Mean Corpuscular Hemoglobin Concent 32.8, Red Cell Distribution Width 14.9 H, Neutrophils (%) (Auto) 72.7 H, Lymphocytes (%) (Auto) 14.9 L, Monocytes (%) (Auto) 7.2 H, Eosinophils (%) (Auto) 2.4, Basophils (%) (Auto) 0.1, Neutrophils # (Auto) 9.9 H, Lymphocytes # (Auto) 2.0, Monocytes # (Auto) 1.0 H, Eosinophils # (Auto) 0.3, Basophils # (Auto) 0.0, Calcium Level 8.2 L Microbiology Microbiology 08/10/18 Blood Culture - Final, Complete NO GROWTH AFTER 5 DAYS 08/10/18 Blood Culture - Final, Complete NO GROWTH AFTER 5 DAYS 08/14/18 Stool Occult Blood (ELLEN) - Final, Complete 08/11/18 MRSA Screen - Final, Complete 08/11/18 Respiratory Virus Panel (PCR) (ELLEN) - Final, Complete GME ATTESTATION GME ATTESTATION My faculty preceptor for this patient encounter was physically present during the encounter and was fully available. All aspects of the patient interview, examination, medical decision making process, and medical care plan development were reviewed and approved by the faculty preceptor. The faculty preceptor is aware and concurs with the plan as stated in the body of this note and will attest to such by his/her cosignature. ATTENDING NOTE I, Jesus Johansen, have both independently examined this patient as well as reviewed the documentation. I have discussed in detail with the resident the findings and plan of treatment as documented by the resident. I agree with their findings and treatment plan. I will continue to follow the patient and offer further guidance to the patients care as necessary during this hospital stay. KAVYA MORGAN DO August 16, 2018 10:00 JESUS JOHANSEN MD August 16, 2018 16:35
[2018-08-16 12:09] VITALS: BP 115/59
[2018-08-16 16:24] VITALS: BP_SYST 140; BP_DIAS 61; BP_DIAS 79
[2018-08-16 20:00] VITALS: BP 106/53
[2018-08-16] MEDS: RAMELTEON 8 MG TAB (ROZEREM) PO SCH (21:23)
[2018-08-16 23:59] VITALS: BP 121/56
[2018-08-17 04:00] VITALS: BP 125/56
[2018-08-17 05:15] LABS: BASO % 0.1 % (0.0-1.0); EOS # 0.3 10^3/uL (0.0-0.50); EOS % 2.2 % (0.0-3.0); HEMATOCRIT 29.3 % (36.0-47.0); HEMOGLOBIN 9.5 g/dl (12.0-15.5); LYMPH % 16.2 % (24.0-44.0); MEAN CORPUSCULAR HEMOGLOBIN 29.1 pg (27.0-33.0); MEAN CORPUSCULAR HGB CONC 32.4 g/dl (32.0-36.5); MEAN CORPUSCULAR VOLUME 89.9 fl (80.0-96.0); MONO % 7.6 % (0.0-5.0); NEUTROPHILS # 8.9 10^3/uL (1.8-7.7); NEUTROPHILS % 71.4 % (36.0-66.0); PLATELET COUNT, AUTOMATED 183 10^3/uL (150-450); RED BLOOD COUNT 3.26 10^6/uL (4.00-5.40); WHITE BLOOD COUNT 12.5 10^3/uL (4.0-10.0)
[2018-08-17 05:35] LABS: CALCIUM LEVEL 7.9 MG/DL (8.8-10.2); CREATININE FOR GFR 1.85 MG/DL (0.55-1.30); GLOMERULAR FILTRATION RATE 27.8 (>32); POTASSIUM SERUM 3.8 MEQ/L (3.5-5.1)
[2018-08-17 08:00] VITALS: BP 132/57
--- NOTE | 2018-08-17 08:37 | IPN ---
DATE: 08/16/2018 SUBJECTIVE: The patient is seen and examined this morning at the bedside. Her is present. She remains pleasantly demented in no distress. Occasionally trying to tug at her Forte catheter. Her renal function has improved with hypotonic fluids overnight and still has her hypernatremia. Vital Signs: Temperature 97.6, pulse 77, respiratory rate 20, blood pressure 116/59, saturating 96% on room air. Intake yesterday was 630, urine output yesterday as 325. Urine output so far today is already 1425. Weight in the bed scale is 61 kg. General: Patient is seen lying in bed, restless, trying to get out and fidgeting with the Forte tubing. She is oriented only to self. She mostly speaks in nonsensical sentences. Does not reliably follow commands and is in no respiratory distress. Comfortable on room air. Makes occasional eye contact. Neck is supple. Jugular veins to not appear elevated. Heart sounds are irregularly irregular. There is no edema in the peripheries. Lungs show symmetric air entry. There is no overt wheeze or rales. She is not cooperative with the physical exam. The abdomen is soft. She does not grimace to palpation. There is a Forte catheter present draining clear yellow urine. Extremities show compression stockings and no peripheral edema. Her radial pulses are palpable. LABS: Sodium 146, potassium 3.9, bicarbonate 23, BUN 64, creatinine 2.1. Hemoglobin 9.7. INPATIENT MEDICATIONS: She continues on D5W at 50 mL/h. Her Protonix was changed over to oral formulation. The remainder of medications are unchanged from prior. PROBLEMS: 1. Chronic kidney disease (CKD) stage IV: Presently with recurrent acute kidney injury. This time in the setting of gastrointestinal (GI) bleed, hypotension, lactic acidosis and thus subsequent decrease in urine output. She received hypotonic fluids over the past 24 hours with improvement in her renal function, again back towards baseline. She is ordered for 1.5 liters of D5W at 50 mL/h and afterwards, we will hold IV fluids and encourage oral intake as tolerated. 2. Hypernatremia: It is secondary to GI bleed and free water losses. She has improved with hypotonic fluids. Will plan to stop IV fluids by the end of the day today and encourage oral intake as tolerated. 3. GI bleed status post 3 units of packed red blood cells. Continue CBC monitoring. Hemoglobin and hematocrit have stabilized. She continues on Protonix. 4. Diastolic congestive heart failure: Volume status is presently acceptable. Her hypotonic fluids are ordered to run until the end of the day today at a low rate of 50 mL/h in view of her mild free water deficit and poor oral intake. There are no signs of hypervolemia. She continues to saturate well on room air.
[2018-08-17] MEDS: PANTOPRAZOLE 40MG TAB (PROTONIX) PO SCH ×2 (08:41→21:00)
[2018-08-17] MEDS: ATORVASTATIN 20 MG TAB PO SCH (08:41)
[2018-08-17] MEDS: HumaLOG INSULIN (NovoLOG) PER UNIT SC SCH ×4 (08:41→21:00)
[2018-08-17] MEDS: SALIVA SUBSTITUTE(MOUTHKOTE) BTL MT PRN (08:41)
[2018-08-17] MEDS: CLOPIDOGREL 75 MG TAB PO SCH (08:41)
[2018-08-17] MEDS: METOPROLOL SUCC *XL* 25MG TAB (TopROL *XL*) PO SCH (08:42)
--- NOTE | 2018-08-17 10:48 | IPNPDOC ---
Date Seen The patient was seen on 08/17/18. Progress Note SUBJECTIVE: Patient was seen and examined this morning. Her is accompanying her again this morning. He states that she appears to be doing well. Physical therapy had attempted to work with patient to get to the bedside commode. She had difficulty and refused to work with physical therapy. She has had no more bloody or dark tarry stools over the past 24 hour. Her blood pressure and hem oglobin has remained stable. OBJECTIVE PHYSICAL EXAMINATION: VITAL SIGNS: Please see below. GENERAL: Awake and alert. She has progressive dementia. She is lying in bed. She does not appear to be in acute distress HEENT: Atraumatic, normocephalic. Eyes are nonicteric. Trachea is midline CARDIOVASCULAR: Irregularly irregular rhythm. Tachycardic. No clicks, rubs, or murmurs RESPIRATORY: Clear vesicular breath sounds bilaterally. Mildly diminished throughout. No wheezes, rhonci, or rales. No crackles ABDOMINAL: Soft, slightly distended. Nontender to palpation although patient states her abdomen is sore without palpation. No rebound tenderness or guarding. Positive bowel sounds EXTREMITIES: No edema. 2+ PT and DP pulses bilaterally. NEUROLOGICAL: No focal neurological deficits. Patient has confusion consistent with her progressive dementia PSYCHOLOGICAL: Mood and affect are appropriate LABORATORY DATA, IMAGING STUDIES, MICROBIOLOGY: Please see below. DVT prophylaxis ordered?: NO held 2/2 GI bleed ASSESSMENT AND PLAN: Patient is an 82 year old female with a PMHx of HTN, IDDM2, who presented with confusion with progressive dementia. In the ER she had acute kidney injury, NSTEMI and new onset atrial fibrillation. Patient was admitted to the hospitalist service for further evaluation / treatment. Cardiology was called on consultation. PROBLEMS: 1. Symptomatic Acute Blood Loss Anemia likely 2/2 GI bleed -Patient has had 3 transfusions. Her hbg appears to be somewhat stable at this point although she does have an active GI bleed. -There have been no more bloody bowel movements reported -Protonix transitioned to PO -Holding anticoagulation -Patient appear to be remaining stable. Her hemoglobin has not dropped. There has been no more bloody stools observed over the past 24 hours. -Patient will continue working with physical therapy 2. NSTEMI Type 2 -Patient has elevated troponin. She has been on Lovenox and Plavix. This has been discontinued as patient has an acute GI bleed. -Cardiology on consult -Patient has had several episodes of hypotension during her hospitalization likely due to her acute GI bleed leading to increased cardiac demand 3. New onset Atrial fibrillation -Currently off of Lovenox (re: GI bleeding) -Rate is averaging 110 bpm 4. NSVT -History of NSTEMI -Patient is currently on tele 5. HTN -BP now normotensive 6. IDDM2 -Currently controlled -Sliding scale -Hypoglycemic protocol 7. DVT Prophylaxis -Currently on hold secondary to active GI bleed DISPOSITION: Patient will continue with physical therapy. 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 A-FIB/CHADSVASC A-FIB History Current/History of A-Fib/PAF?: Yes Current Oral Anticoagulant The: No Age/Risk Factor Scoring CHADSVASC: CHADSVASC Response (Comments) Value Age Risk Factor Age >/= 75 years old 2 Total 2 Treatment Treatment ordered: Holding Other Reason Anticoagulant not given: Current bleeding VS, I&O, 24H, Fishbone Vital Signs/I&O Vital Signs Date Time Temp Pulse Resp B/P (MAP) Pulse Ox O2 Delivery O2 Flow Rate FiO2 08/17/18 08:42 96 132/57 08/17/18 08:00 98.7 18 100 08/16/18 04:00 1.0 08/15/18 18:00 Room Air I&O- Last 24 Hours up to 6 AM 08/17/18 06:00 Intake Total 750 ml Output Total 1025 ml Balance -275 ml Laboratory Data 24H LABS Laboratory Tests 2 08/16/18 11:59: Bedside Glucose (Misc Panel) 271H 08/16/18 17:02: Bedside Glucose (Misc Panel) 162H 08/16/18 21:04: Bedside Glucose (Misc Panel) 151H 08/17/18 04:50: Immature Granulocyte % (Auto) 2.5, White Blood Count 12.5H, Red Blood Count 3.26L, Hemoglobin 9.5L, Hematocrit 29.3L, Mean Corpuscular Volume 89.9, Mean Corpuscular Hemoglobin 29.1, Mean Corpuscular Hemoglobin Concent 32.4, Red Cell Distribution Width 14.7H, Platelet Count 183, Neutrophils (%) (Auto) 71.4H, Lymphocytes (%) (Auto) 16.2L, Monocytes (%) (Auto) 7.6H, Eosinophils (%) (Auto) 2.2, Basophils (%) (Auto) 0.1, Neutrophils # (Auto) 8.9H, Lymphocytes # (Auto) 2.0, Monocytes # (Auto) 1.0H, Eosinophils # (Auto) 0.3, Basophils # (Auto) 0.0, Nucleated Red Blood Cells % (auto) 0.5H, Anion Gap 7L, Glomerular Filtration Rate 27.8L, Blood Urea Nitrogen 45H, Creatinine 1.85H, Sodium Level 144, Potassium Level 3.8, Chloride Level 115H, Carbon Dioxide Level 22, Calcium Level 7.9L CBC/BMP Laboratory Tests 08/17/18 04:50 Red Blood Count 3.26 L, Mean Corpuscular Volume 89.9, Mean Corpuscular Hemoglobin 29.1, Mean Corpuscular Hemoglobin Concent 32.4, Red Cell Distribution Width 14.7 H, Neutrophils (%) (Auto) 71.4 H, Lymphocytes (%) (Auto) 16.2 L, M onocytes (%) (Auto) 7.6 H, Eosinophils (%) (Auto) 2.2, Basophils (%) (Auto) 0.1, Neutrophils # (Auto) 8.9 H, Lymphocytes # (Auto) 2.0, Monocytes # (Auto) 1.0 H, Eosinophils # (Auto) 0.3, Basophils # (Auto) 0.0, Calcium Level 7.9 L Microbiology Microbiology 08/10/18 Blood Culture - Final, Complete NO GROWTH AFTER 5 DAYS 08/10/18 Blood Culture - Final, Complete NO GROWTH AFTER 5 DAYS 08/14/18 Stool Occult Blood (ELLEN) - Final, Complete 08/11/18 MRSA Screen - Final, Complete 08/11/18 Respiratory Virus Panel (PCR) (ELLEN) - Final, Complete GME ATTESTATION GME ATTESTATION My faculty preceptor for this patient encounter was physically present during the encounter and was fully available. All aspects of the patient interview, examination, medical decision making process, and medical care plan development were reviewed and approved by the faculty preceptor. The faculty preceptor is aware and concurs with the plan as stated in the body of this note and will attest to such by his/her cosignature. ATTENDING NOTE I, Jesus Johansen, have both independently examined this patient as well as reviewed the documentation. I have discussed in detail with the resident the findings and plan of treatment as documented by the resident. I agree with their findings and treatment plan. I will continue to follow the patient and offer further guidance to the patients care as necessary during this hospital stay. KAVYA MORGAN DO August 17, 2018 10:48 JESUS JOHANSEN MD August 17, 2018 14:14
[2018-08-17 12:00] VITALS: BP 144/61
--- NOTE | 2018-08-17 14:16 | IPN ---
DATE: 08/17/2018 Mrs. Reyes is seen this morning on her bedside. She is poorly responsive and currently I was unable to wake her up. Her is present in the room and reports that she was sitting in the chair earlier and did eat small amount of breakfast. She remains very weak. She had developed hypernatremia, which has already corrected. She also had developed gastrointestinal (GI) bleed and required transfusions. However, her hematocrit has been stable for last couple of days. On physical exam, this is an elderly lady who is not responding to verbal stimulus or touch. I could not wake her up. Temperature is 98.7 degrees Fahrenheit, heart rate 96 per minute and respiratory rate 18 per minute. Blood pressure 132/57 mmHg and oxygen saturation is 100%. Head is atraumatic. There are no obvious neck veins visible. Heart: Sounds are tachycardiac. Lungs have good bilateral air entry. Abdomen is soft and bowel sounds are present. Extremities: Have no cyanosis or clubbing. Today's labs show sodium 144, potassium 3.8, chloride 115, CO2 of 22, BUN 45 and creatinine 1.85. WBC count is 12.5, hemoglobin 9.5 and hematocrit 29.3. PROBLEMS: 1. Acute kidney injury superimposed on chronic kidney disease. The patient seems to have slight improvement in kidney function. This is probably close to her baseline. 2. Hypernatremia: Sodium level has also corrected and we will continue to monitor closely. Her oral intake has been very low and she was given IV fluid. Currently she is off any IV fluids. 3. Anemia with GI bleed recently: Her anemia is stable at present and does not need any urgent intervention.
[2018-08-17 20:00] VITALS: BP 161/67
[2018-08-17] MEDS: RAMELTEON 8 MG TAB (ROZEREM) PO SCH (21:00)
[2018-08-18 04:00] VITALS: BP 110/64
[2018-08-18 06:15] LABS: BASO % 0.2 % (0.0-1.0); EOS # 0.3 10^3/uL (0.0-0.50); EOS % 2.1 % (0.0-3.0); HEMATOCRIT 30.7 % (36.0-47.0); HEMOGLOBIN 9.8 g/dl (12.0-15.5); LYMPH # 2.1 10^3/uL (1.5-4.5); LYMPH % 16.4 % (24.0-44.0); MEAN CORPUSCULAR HEMOGLOBIN 29.4 pg (27.0-33.0); MEAN CORPUSCULAR HGB CONC 31.9 g/dl (32.0-36.5); MEAN CORPUSCULAR VOLUME 92.2 fl (80.0-96.0); MONO # 0.9 10^3/uL (0.0-0.8); MONO % 7.1 % (0.0-5.0); NEUTROPHILS % 71.7 % (36.0-66.0); PLATELET COUNT, AUTOMATED 181 10^3/uL (150-450); RED BLOOD COUNT 3.33 10^6/uL (4.00-5.40); WHITE BLOOD COUNT 12.6 10^3/uL (4.0-10.0)
[2018-08-18 06:36] LABS: CALCIUM LEVEL 7.6 MG/DL (8.8-10.2); CREATININE FOR GFR 1.79 MG/DL (0.55-1.30); GLOMERULAR FILTRATION RATE 28.9 (>32); POTASSIUM SERUM 4.2 MEQ/L (3.5-5.1)
[2018-08-18] MEDS: HumaLOG INSULIN (NovoLOG) PER UNIT SC SCH ×4 (07:30→21:10)
[2018-08-18 08:00] VITALS: BP 127/62
[2018-08-18] MEDS: CLOPIDOGREL 75 MG TAB PO SCH (09:00)
[2018-08-18] MEDS: ATORVASTATIN 20 MG TAB PO SCH (09:59)
[2018-08-18] MEDS: PANTOPRAZOLE 40MG TAB (PROTONIX) PO SCH ×2 (09:59→20:44)
[2018-08-18] MEDS: METOPROLOL SUCC *XL* 25MG TAB (TopROL *XL*) PO SCH (10:03)
--- NOTE | 2018-08-18 11:00 | IPNPDOC ---
Text Note Date of Service The patient was seen on 08/18/18. NOTE Subjective: Patient is an 82 year old female with a PMHx of Hx of NSTEMI, HTN, IDDM2, who presented with confusion with progressive dementia. In the ER she had acute kidney injury, NSTEMI and new onset atrial fibrillation. Patient was admitted to the hospitalist service for further evaluation / treatment. Cardiology was called on consultation. Patient was seen and examined at the bedside. Currently she appears pleasant. Denies any pain, denies any abdominal discomfort. No nausea and vomiting. Nursing staff has not noted any further bowel movements. Objective: Vitals (See below) General: Lying in bed, no acute distress, comfortable, Awake / Alert HEENT: NC, AT CVS: RRR, +S1S2 Lungs: Fair air entry b/l, no appreciable wheezing / rhonchi / rales Abdomen: Soft, ND, NT Extremities: - Edema, - Calf tenderness Assessment and plan: Symptomatic anemia - likely 2/2 acute GI bleed - etiology unknown - Patient had experienced hypotension and dizziness - She had several episodes of dark/melanotic stools; this has since resolved - Currently patient is hemodynamically stable - Hg remains stable - s/p 3 units PRBC - Anticoagulation / Anti-platelet therapy has been discontinued - Extensive discussion with / Daughter - currently they do not want pursue anything aggressive; No Central Line, No Colonoscopy, No EGD - Family would like to continue with limited medical interventions at this time - risks / benefits discussed; verbalized understanding - c/w Protonix - c/w PT NSTEMI (Type 2) - Currently has no chest pain - Significant elevation of troponin - c/w Metoprolol and Atorvastatin - s/p ASA, Plavix and Therapeutic Lovenox - Anticoagulation / Antiplatelet therapy has been discontinued (re: GI Bleed) - Cardiology on consult; will discuss anti-platelet therapy restart New Onset Atrial fibrillation - c/w rate control with Carvedilol - Off full anticoagulation (re: GI bleed) NSVT - Hx of NSTEMI - s/p Telemetry HTN - BP appears well controlled - c/w Metoprolol IDDM2 - c/w ISS GI prophylaxis - c/w Protonix BID DVT prophylaxis - c/w SCDs/TEDs - Pharmacologic therapy has been held 2/2 GI bleed Disposition: - c/w PT - Family looking into 30/10 care at home so patient can be transitioned home VS,Fishbone, I+O VS, Fishbone, I+O Laboratory Tests 08/18/18 05:10 Red Blood Count 3.33 L, Mean Corpuscular Volume 92.2, Mean Corpuscular Hemoglobin 29.4, Mean Corpuscular Hemoglobin Concent 31.9 L, Red Cell Distribution Width 15.3 H, Neutrophils (%) (Auto) 71.7 H, Lymphocytes (%) (Auto) 16.4 L, Monocytes (%) (Auto) 7.1 H, Eosinophils (%) (Auto) 2.1, Basophils (%) (Auto) 0.2, Neutrophils # (Auto) 9.0 H, Lymphocytes # (Auto) 2.1, Monocytes # (Auto) 0.9 H, Eosinophils # (Auto) 0.3, Basophils # (Auto) 0.0, Calcium Level 7.6 L Vital Signs Date Time Temp Pulse Resp B/P (MAP) Pulse Ox O2 Delivery O2 Flow Rate FiO2 08/18/18 10:03 79 127/62 08/18/18 08:00 97.9 20 90 08/16/18 04:00 1.0 08/15/18 18:00 Room Air I&O- Last 24 Hours up to 6 AM 08/18/18 06:00 Intake Total 915 ml Output Total 650 ml Balance 265 ml JUDIT JOHANSEN MD August 18, 2018 11:00
[2018-08-18] MEDS ORDERED: ASPIRIN 81 MG ENTERIC TAB As Ordered ONE (11:24)
--- NOTE | 2018-08-18 14:42 | IPN ---
DATE OF VISIT: 08/18/2018 Mrs. Reyes is seen this morning on her bedside. Her is present in the room. Patient is awake today but not very communicative. Her reports that she did sit in the chair earlier and ate a few bites of her breakfast. Her oral intake does remain poor. She was originally admitted with dehydration, acute renal failure and developed gastrointestinal (GI) bleed. She has no further GI bleed now since initial episode when she was transfused. On physical exam, temperature 97.9 degrees Fahrenheit, heart rate 80 per minute, and blood pressure 127/62 mmHg. Oxygen saturation is 90%. Head is atraumatic. Neck is supple and without jugular venous distention (JVD) or thyroid enlargement. Lungs sound clear to auscultation. Heart sounds are regular, and there is no pericardial friction rub. Abdomen soft and nontender, and bowel sounds are normal. Extremities: Without any cyanosis or clubbing. Today's labs show WBC count 12.6, hemoglobin 9.8, and hematocrit 30.7. Sodium 144, potassium 4.2, CO2 23, BUN 39, and creatinine 1.79. PROBLEMS: 1. Acute renal failure superimposed on chronic kidney disease. Her kidney function has improved with intravenous (IV) hydration and this is probably her baseline function. She is now off IV fluid, and I have advised the to encourage her for increased oral intake. 2. Hypernatremia with sodium level has corrected and remains stable. At this point, will need to continue encouraging her for oral intake. 3. Gastrointestinal (GI) bleed. She did have a GI bleed and required transfusions, however, now it is stable and no urgent intervention is indicated. From renal standpoint, patient is doing well and will not need any further followup. I am signing off the case.
[2018-08-18 16:00] VITALS: BP 150/59
[2018-08-18] MEDS: RAMELTEON 8 MG TAB (ROZEREM) PO SCH (21:10)
[2018-08-18 22:00] VITALS: BP 133/60
[2018-08-19 06:00] VITALS: BP 143/64
[2018-08-19 06:25] LABS: BASO % 0.2 % (0.0-1.0); EOS # 0.2 10^3/uL (0.0-0.50); EOS % 1.7 % (0.0-3.0); HEMATOCRIT 30.9 % (36.0-47.0); HEMOGLOBIN 9.8 g/dl (12.0-15.5); LYMPH # 1.8 10^3/uL (1.5-4.5); LYMPH % 13.4 % (24.0-44.0); MEAN CORPUSCULAR HEMOGLOBIN 29.6 pg (27.0-33.0); MEAN CORPUSCULAR HGB CONC 31.7 g/dl (32.0-36.5); MEAN CORPUSCULAR VOLUME 93.4 fl (80.0-96.0); MONO # 0.9 10^3/uL (0.0-0.8); MONO % 6.8 % (0.0-5.0); NEUTROPHILS # 9.9 10^3/uL (1.8-7.7); NEUTROPHILS % 75.2 % (36.0-66.0); PLATELET COUNT, AUTOMATED 212 10^3/uL (150-450); RED BLOOD COUNT 3.31 10^6/uL (4.00-5.40); WHITE BLOOD COUNT 13.2 10^3/uL (4.0-10.0)
[2018-08-19 06:42] LABS: CALCIUM LEVEL 8.2 MG/DL (8.8-10.2); CREATININE FOR GFR 1.61 MG/DL (0.55-1.30); GLOMERULAR FILTRATION RATE 32.6 (>32); POTASSIUM SERUM 3.9 MEQ/L (3.5-5.1)
[2018-08-19] MEDS: HumaLOG INSULIN (NovoLOG) PER UNIT SC SCH ×4 (07:30→22:01)
[2018-08-19] MEDS: ASPIRIN 81 MG ENTERIC TAB PO SCH (08:52)
[2018-08-19] MEDS: ATORVASTATIN 20 MG TAB PO SCH (08:52)
[2018-08-19] MEDS: PANTOPRAZOLE 40MG TAB (PROTONIX) PO SCH ×3 (08:52→22:00)
[2018-08-19] MEDS: METOPROLOL SUCC *XL* 25MG TAB (TopROL *XL*) PO SCH (08:52)
[2018-08-19] MEDS: ACETAMINOPHEN TAB 650MG DOSE (2X325MG) PO PRN (10:09)
[2018-08-19] MEDS ORDERED: ONDANSETRON 4 MG ORAL DISINTEGRATING TAB (Q0162 PER 1MG) PO PRN (11:15)
--- NOTE | 2018-08-19 12:08 | IPNPDOC ---
Date Seen The patient was seen on 08/19/18. Progress Note SUBJECTIVE: Patient was seen and examined this morning. She has indicated some discomfort and nausea. Given her dementia she is unable to elaborate on her pain. Her states that she does say that she is in pain every once and awhile. She is eating although does not have a good appetite. She has not had any more bloody bowel movements. There have been no adverse events reported overnight OBJECTIVE PHYSICAL EXAMINATION: VITAL SIGNS: Please see below. GENERAL: Awake and alert. She is not oriented as she has progressive dementia. She does not appear in acute distress. HEENT: Atrumatic, normocephalic. Trachea is midline. Eyes are nonicteric. Mucous membranes are pink and moist CARDIOVASCULAR: Irregularly, irregular rhythm. Normal rate. No clicks, rubs, or murmurs RESPIRATORY: Mildly diminished breath sounds throughout. No wheezes, rhonci, or rales. Mild crackles in the bases bilaterally. ABDOMINAL: Soft, nondistended. Nontender to palpation. No rebound tenderness or guarding. Positive bowel sounds throughout EXTREMITIES: No edema. Full and equal pulses bilateral upper and lower extremities NEUROLOGICAL: No focal neurological deficits. Patient has dementia PSYCHOLOGICAL: Mood and affect appear appropriate LABORATORY DATA, IMAGING STUDIES, MICROBIOLOGY: Please see below. DVT prophylaxis ordered?: ASSESSMENT AND PLAN: Patient is an 82 year old female with a PMHx of HTN, IDDM2, who presented with confusion with progressive dementia. In the ER she had acute kidney injury, NSTEMI and new onset atrial fibrillation. Patient was admitted to the hospitalist service for further evaluation / treatment. Cardiology was called on consultation. PROBLEMS: 1. Symptomatic Acute Blood Loss Anemia likely 2/2 GI bleed -Continuing to monitor CBC -Patients Hbg has remained stable. She is s/p 3 transfusions. There have been no more bloody bowel movements reported -Patient is on Aspirin. Plavix has been discontinued 2. NSTEMI Type 2 -Patient has elevated troponin. She has been on Lovenox and Plavix. This has been discontinued as patient has an acute GI bleed. -Cardiology on consult -Patient has had several episodes of hypotension during her hospitalization likely due to her acute GI bleed leading to increased cardiac demand -Patients blood pressure has remained normotensive. 3. New onset Atrial fibrillation -Currently off of Lovenox (re: GI bleeding) -Rate is averaging 110 bpm -Patient is taking Aspirin 81 mg 4. NSVT -History of NSTEMI -Patient is currently on tele 5. HTN -BP now normotensive 6. IDDM2 -Currently controlled -Sliding scale -Hypoglycemic protocol 7. DVT Prophylaxis -Currently on hold secondary to active GI bleed DISPOSITION: Patient is pending 30/10 home care. Continuing to work with PT A-FIB/CHADSVASC A-FIB History Current/History of A-Fib/PAF?: Yes Current Oral Anticoagulant The: No Age/Risk Factor Scoring CHADSVASC: CHADSVASC Response (Comments) Value Age Risk Factor Age >/= 75 years old 2 Total 2 Treatment Treatment ordered: Holding Other Reason Anticoagulant not given: Current bleeding VS, I&O, 24H, Fishbone Vital Signs/I&O Vital Signs Date Time Temp Pulse Resp B/P (MAP) Pulse Ox O2 Delivery O2 Flow Rate FiO2 08/19/18 08:52 74 143/64 08/19/18 06:00 97.8 18 96 08/16/18 04:00 1.0 08/15/18 18:00 Room Air I&O- Last 24 Hours up to 6 AM 08/19/18 06:00 Intake Total 580 ml Output Total 400 ml Balance 180 ml Laboratory Data 24H LABS Laboratory Tests 2 08/18/18 11:49: Bedside Glucose (Misc Panel) 355H 08/18/18 16:16: Bedside Glucose (Misc Panel) 159H 08/18/18 19:50: Bedside Glucose (Misc Panel) 255H 08/19/18 05:46: Immature Granulocyte % (Auto) 2.7, White Blood Count 13.2H, Red Blood Count 3.31L, Hemoglobin 9.8L, Hematocrit 30.9L, Mean Corpuscular Volume 93.4, Mean Corpuscular Hemoglobin 29.6, Mean Corpuscular Hemoglobin Concent 31.7L, Red Cell Distribution Width 15.3H, Platelet Count 212, Neutrophils (%) (Auto) 75.2H, Lymphocytes (%) (Auto) 13.4L, Monocytes (%) (Auto) 6.8H, Eosinophils (%) (Auto) 1.7, Basophils (%) (Auto) 0.2, Neutrophils # (Auto) 9.9H, Lymphocytes # (Auto) 1.8, Monocytes # (Auto) 0.9H, Eosinophils # (Auto) 0.2, Basophils # (Auto) 0.0, Nucleated Red Blood Cells % (auto) 0.0, Anion Gap 6L, Glomerular Filtration Rate 32.6, Blood Urea Nitrogen 31H, Creatinine 1.61H, Sodium Level 142, Potassium Level 3.9, Chloride Level 110H, Carbon Dioxide Level 26, Calcium Level 8.2L 08/19/18 11:30: Bedside Glucose (Misc Panel) 253H CBC/BMP Laboratory Tests 08/19/18 05:46 Red Blood Count 3.31 L, Mean Corpuscular Volume 93.4, Mean Corpuscular Hemoglobin 29.6, Mean Corpuscular Hemoglobin Concent 31.7 L, Red Cell Distribution Width 15.3 H, Neutrophils (%) (Auto) 75.2 H, Lymphocytes (%) (Auto) 13.4 L, Monocytes (%) (Auto) 6.8 H, Eosinophils (%) (Auto) 1.7, Basophils (%) (Auto) 0.2, Neutrophils # (Auto) 9.9 H, Lymphocytes # (Auto) 1.8, Monocytes # (Auto) 0.9 H, Eosinophils # (Auto) 0.2, Basophils # (Auto) 0.0, Calcium Level 8.2 L Microbiology Microbiology 08/10/18 Blood Culture - Final, Complete NO GROWTH AFTER 5 DAYS 08/10/18 Blood Culture - Final, Complete NO GROWTH AFTER 5 DAYS 08/14/18 Stool Occult Blood (ELLEN) - Final, Complete 08/11/18 MRSA Screen - Final, Complete 08/11/18 Respiratory Virus Panel (PCR) (ELLEN) - Final, Complete GME ATTESTATION GME ATTESTATION My faculty preceptor for this patient encounter was physically present during the encounter and was fully available. All aspects of the patient interview, examination, medical decision making process, and medical care plan development were reviewed and approved by the faculty preceptor. The faculty preceptor is aware and concurs with the plan as stated in the body of this note and will attest to such by his/her cosignature. ATTENDING NOTE I saw and evaluated the patient. I agree with the findings and plan of care as documented in the resident's note KAVYA MORGAN DO August 19, 2018 12:08 AJAY SAXENA MD August 22, 2018 13:10
[2018-08-19 14:00] VITALS: BP 120/55
[2018-08-19] MEDS: RAMELTEON 8 MG TAB (ROZEREM) PO SCH ×2 (21:00→22:00)
[2018-08-19 22:00] VITALS: BP 98/53
[2018-08-20 06:00] VITALS: BP 113/51
[2018-08-20 06:14] LABS: BASO % 0.2 % (0.0-1.0); EOS # 0.2 10^3/uL (0.0-0.50); EOS % 1.8 % (0.0-3.0); HEMATOCRIT 32.3 % (36.0-47.0); HEMOGLOBIN 10.2 g/dl (12.0-15.5); LYMPH # 1.8 10^3/uL (1.5-4.5); MEAN CORPUSCULAR HEMOGLOBIN 29.7 pg (27.0-33.0); MEAN CORPUSCULAR HGB CONC 31.6 g/dl (32.0-36.5); MEAN CORPUSCULAR VOLUME 93.9 fl (80.0-96.0); MONO % 7.5 % (0.0-5.0); NEUTROPHILS # 10.2 10^3/uL (1.8-7.7); NEUTROPHILS % 75.3 % (36.0-66.0); PLATELET COUNT, AUTOMATED 231 10^3/uL (150-450); RED BLOOD COUNT 3.44 10^6/uL (4.00-5.40); WHITE BLOOD COUNT 13.5 10^3/uL (4.0-10.0)
[2018-08-20 06:42] LABS: CALCIUM LEVEL 8.3 MG/DL (8.8-10.2); CREATININE FOR GFR 1.64 MG/DL (0.55-1.30); GLOMERULAR FILTRATION RATE 31.9 (>32); POTASSIUM SERUM 4.1 MEQ/L (3.5-5.1)
[2018-08-20] MEDS: ASPIRIN 81 MG ENTERIC TAB PO SCH (08:51)
[2018-08-20] MEDS: HumaLOG INSULIN (NovoLOG) PER UNIT SC SCH ×4 (08:51→21:52)
[2018-08-20] MEDS: PANTOPRAZOLE 40MG TAB (PROTONIX) PO SCH ×3 (08:51→21:50)
[2018-08-20] MEDS: ATORVASTATIN 20 MG TAB PO SCH (08:52)
[2018-08-20] MEDS: METOPROLOL SUCC *XL* 25MG TAB (TopROL *XL*) PO SCH (08:52)
--- NOTE | 2018-08-20 11:35 | IPNPDOC ---
Date Seen The patient was seen on 08/20/18. Progress Note SUBJECTIVE: Patient was seen and examined this morning. She is sleeping but arousable. She does not indicate any pain or discomfort. There have been no adverse events reported overnight. There has been some difficulty getting her to work with physical therapy. OBJECTIVE PHYSICAL EXAMINATION: VITAL SIGNS: Please see below. GENERAL: Awake and alert. Not oriented secondary to her advanced dementia HEENT: Atrumatic, normocephalic. Eyes are nonicteric. Trachea is midline. CARDIOVASCULAR: Irregularly irregular rhythm. Regular rate RESPIRATORY: Diminished breath sounds throughout. Bibasilar crackles. No wheezes, rhonci, or rales ABDOMINAL: Soft, slightly distended. Nontender to palpation. No rebound tenderness or guarding. Positive bowel sounds throughout EXTREMITIES: No edema. Full and equal pulses in bilateral upper and lower extremities NEUROLOGICAL: No focal neurological deficits PSYCHOLOGICAL: Mood and affect appear appropriate LABORATORY DATA, IMAGING STUDIES, MICROBIOLOGY: Please see below. DVT prophylaxis ordered?: No. Held 2/2 GI bleed ASSESSMENT AND PLAN: Patient is an 82 year old female with a PMHx of HTN, IDDM2, who presented with confusion with progressive dementia. In the ER she had acute kidney injury, NSTEMI and new onset atrial fibrillation. Patient was admitted to the hospitalist service for further evaluation / treatment. Cardiology was called on consultation. PROBLEMS: 1. Symptomatic Acute Blood Loss Anemia likely 2/2 GI bleed -Continuing to monitor CBC -Patients Hbg has remained stable. She is s/p 3 transfusions. There have been no more bloody bowel movements reported -Patient is on Aspirin. Plavix has been discontinued -Hbg remains stable at 10.2 2. NSTEMI Type 2 -Patient has elevated troponin. She has been on Lovenox and Plavix. This has been discontinued as patient has an acute GI bleed. -Cardiology on consult -Patient has had several episodes of hypotension during her hospitalization likely due to her acute GI bleed leading to increased cardiac demand -Patients blood pressure has remained normotensive. 3. New onset Atrial fibrillation -Currently off of Lovenox (re: GI bleeding) -Patient is taking Aspirin 81 mg -Metoprolol 25mg daily 4. NSVT -History of NSTEMI -Patient is currently on tele 5. HTN -BP now normotensive 6. IDDM2 -Currently controlled -Sliding scale -Hypoglycemic protocol 7. DVT Prophylaxis -Currently on hold secondary to active GI bleed DISPOSITION: Patient is pending 30/10 home care. Continuing to work with PT A-FIB/CHADSVASC A-FIB History Current/History of A-Fib/PAF?: Yes Current Oral Anticoagulant The: No Age/Risk Factor Scoring CHADSVASC: CHADSVASC Response (Comments) Value Age Risk Factor Age >/= 75 years old 2 Total 2 Treatment Treatment ordered: Holding Other Reason Anticoagulant not given: Current bleeding VS, I&O, 24H, Fishbone Vital Signs/I&O Vital Signs Date Time Temp Pulse Resp B/P (MAP) Pulse Ox O2 Delivery O2 Flow Rate FiO2 08/20/18 08:52 72 115/55 08/20/18 06:00 97.9 17 90 08/16/18 04:00 1.0 08/15/18 18:00 Room Air I&O- Last 24 Hours up to 6 AM 08/20/18 05:59 Intake Total 1000 ml Output Total 0 ml Balance 1000 ml Laboratory Data 24H LABS Laboratory Tests 2 08/19/18 11:30: Bedside Glucose (Misc Panel) 253H 08/19/18 16:57: Bedside Glucose (Misc Panel) 141H 08/19/18 21:54: Bedside Glucose (Misc Panel) 265H 08/20/18 05:53: Immature Granulocyte % (Auto) 2.2, White Blood Count 13.5H, Red Blood Count 3.44L, Hemoglobin 10.2L, Hematocrit 32.3L, Mean Corpuscular Volume 93.9, Mean Corpuscular Hemoglobin 29.7, Mean Corpuscular Hemoglobin Concent 31.6L, Red Cell Distribution Width 15.5H, Platelet Count 231, Neutrophils (%) (Auto) 75.3H, Lymphocytes (%) (Auto) 13.0L, Monocytes (%) (Auto) 7.5H, Eosinophils (%) (Auto) 1.8, Basophils (%) (Auto) 0.2, Neutrophils # (Auto) 10.2H, Lymphocytes # (Auto) 1.8, Monocytes # (Auto) 1.0H, Eosinophils # (Auto) 0.2, Basophils # (Auto) 0.0, Nucleated Red Blood Cells % (auto) 0.1H, Anion Gap 6L, Glomerular Filtration Rate 31.9L, Blood Urea Nitrogen 30H, Creatinine 1.64H, Sodium Level 140, Potassium Level 4.1, Chloride Level 108H, Carbon Dioxide Level 26, Calcium Level 8.3L CBC/BMP Laboratory Tests 08/20/18 05:53 Red Blood Count 3.44 L, Mean Corpuscular Volume 93.9, Mean Corpuscular Hemoglobin 29.7, Mean Corpuscular Hemoglobin Concent 31.6 L, Red Cell Distribution Width 15.5 H, Neutrophils (%) (Auto) 75.3 H, Lymphocytes (%) (Auto) 13.0 L, Monocytes (%) (Auto) 7.5 H, Eosinophils (%) (Auto) 1.8, Basophils (%) (Auto) 0.2, Neutrophils # (Auto) 10.2 H, Lymphocytes # (Auto) 1.8, Monocytes # (Auto) 1.0 H, Eosinophils # (Auto) 0.2, Basophils # (Auto) 0.0, Calcium Level 8.3 L Microbiology Microbiology 08/10/18 Blood Culture - Final, Complete NO GROWTH AFTER 5 DAYS 08/10/18 Blood Culture - Final, Complete NO GROWTH AFTER 5 DAYS 08/14/18 Stool Occult Blood (ELLEN) - Final, Complete 08/11/18 MRSA Screen - Final, Complete 08/11/18 Respiratory Virus Panel (PCR) (ELLEN) - Final, Complete GME ATTESTATION GME ATTESTATION My faculty preceptor for this patient encounter was physically present during the encounter and was fully available. All aspects of the patient interview, examination, medical decision making process, and medical care plan development were reviewed and approved by the faculty preceptor. The faculty preceptor is aware and concurs with the plan as stated in the body of this note and will attest to such by his/her cosignature. ATTENDING NOTE I saw and evaluated the patient. I agree with the findings and plan of care as documented in the resident's note KAVYA MORGAN DO August 20, 2018 09:39 AJAY SAXENA MD August 22, 2018 13:13
[2018-08-20 14:00] VITALS: BP 119/59
[2018-08-20] MEDS: ACETAMINOPHEN TAB 650MG DOSE (2X325MG) PO PRN (14:03)
[2018-08-20] MEDS: RAMELTEON 8 MG TAB (ROZEREM) PO SCH ×2 (21:00→21:51)
[2018-08-20 22:00] VITALS: BP 132/60
[2018-08-21 06:00] VITALS: BP 116/55
[2018-08-21 06:35] LABS: BASO % 0.2 % (0.0-1.0); EOS # 0.2 10^3/uL (0.0-0.50); EOS % 1.4 % (0.0-3.0); HEMATOCRIT 30.5 % (36.0-47.0); HEMOGLOBIN 9.6 g/dl (12.0-15.5); LYMPH # 2.1 10^3/uL (1.5-4.5); LYMPH % 16.4 % (24.0-44.0); MEAN CORPUSCULAR HEMOGLOBIN 29.6 pg (27.0-33.0); MEAN CORPUSCULAR HGB CONC 31.5 g/dl (32.0-36.5); MEAN CORPUSCULAR VOLUME 94.1 fl (80.0-96.0); MONO # 1.1 10^3/uL (0.0-0.8); MONO % 8.6 % (0.0-5.0); NEUTROPHILS # 8.9 10^3/uL (1.8-7.7); NEUTROPHILS % 71.4 % (36.0-66.0); PLATELET COUNT, AUTOMATED 226 10^3/uL (150-450); RED BLOOD COUNT 3.24 10^6/uL (4.00-5.40); WHITE BLOOD COUNT 12.5 10^3/uL (4.0-10.0)
[2018-08-21 07:12] LABS: CREATININE FOR GFR 1.46 MG/DL (0.55-1.30); GLOMERULAR FILTRATION RATE 36.5 (>32); POTASSIUM SERUM 4.5 MEQ/L (3.5-5.1)
[2018-08-21] MEDS: HumaLOG INSULIN (NovoLOG) PER UNIT SC SCH ×4 (07:30→21:00)
[2018-08-21] MEDS: METOPROLOL SUCC *XL* 25MG TAB (TopROL *XL*) PO SCH (09:00)
[2018-08-21] MEDS: PANTOPRAZOLE 40MG TAB (PROTONIX) PO SCH ×3 (09:40→21:42)
[2018-08-21] MEDS: ASPIRIN 81 MG ENTERIC TAB PO SCH (09:40)
[2018-08-21] MEDS: ATORVASTATIN 20 MG TAB PO SCH (09:40)
--- NOTE | 2018-08-21 11:39 | IPNPDOC ---
Date Seen The patient was seen on 08/21/18. Progress Note SUBJECTIVE: Patient was seen and examined this morning. She appears to be doing well this morning. She has been working with physical therapy. She denies any abdominal pain. There have been no adverse events overnight. Patient is currently pending plans for 24/7 home care with the patients and daughter OBJECTIVE PHYSICAL EXAMINATION: VITAL SIGNS: Please see below. GENERAL: Awake and alert. Advanced dementia HEENT: Atrumatic, normocephalic. Eyes are nonicteric. Trachea is midline CARDIOVASCULAR: Irregularly irregular rhythm. Normal rate. No clicks, rubs, or murmurs noted RESPIRATORY: Diminished breath sounds throughout. Bibasila crackles. Slight scattered wheezes. No rhonci or rales ABDOMINAL: Soft, slightly distended. Nontender to palpation. No rebound tenderness or guarding. Positive bowel sounds throughout EXTREMITIES: No edema. Full and equal pulses in bilateral upper and lower extremities NEUROLOGICAL: No focal neurological deficits PSYCHOLOGICAL: Mood and affect appear appropriate LABORATORY DATA, IMAGING STUDIES, MICROBIOLOGY: Please see below. DVT prophylaxis ordered?: NO held 2/2 GI bleed ASSESSMENT AND PLAN:Patient is an 82 year old female with a PMHx of HTN, IDDM2, who presented with confusion with progressive dementia. In the ER she had acute kidney injury, NSTEMI and new onset atrial fibrillation. Patient was admitted to the hospitalist service for further evaluation / treatment. Cardiology was called on consultation. PROBLEMS: 1. Symptomatic Acute Blood Loss Anemia likely 2/2 GI bleed -Continuing to monitor CBC -Patients Hbg has remained stable. She is s/p 3 transfusions. There have been no more bloody bowel movements reported -Patient is on Aspirin. Plavix has been discontinued -Hbg remains stable at 9.6 2. NSTEMI Type 2 -Patient has elevated troponin. She has been on Lovenox and Plavix. This has been discontinued as patient has an acute GI bleed. -Cardiology on consult -Patient has had several episodes of hypotension during her hospitalization likely due to her acute GI bleed leading to increased cardiac demand -Patients blood pressure has remained normotensive. 3. New onset Atrial fibrillation -Currently off of Lovenox (re: GI bleeding) -Patient is taking Aspirin 81 mg -Metoprolol 25mg daily 4. NSVT -History of NSTEMI -Patient is currently on tele 5. HTN -BP now normotensive 6. IDDM2 -Currently controlled -Sliding scale -Hypoglycemic protocol 7. DVT Prophylaxis -Currently on hold secondary to active GI bleed DISPOSITION: Pending 30/10 care at home. A-FIB/CHADSVASC A-FIB History Current/History of A-Fib/PAF?: Yes Current Oral Anticoagulant The: No Age/Risk Factor Scoring CHADSVASC: CHADSVASC Response (Comments) Value Age Risk Factor Age >/= 75 years old 2 Total 2 Treatment Treatment ordered: NONE Reason Anticoagulant not given: Current bleeding VS, I&O, 24H, Fishbone Vital Signs/I&O Vital Signs Date Time Temp Pulse Resp B/P (MAP) Pulse Ox O2 Delivery O2 Flow Rate FiO2 08/21/18 09:00 70 116/55 08/21/18 06:00 97.8 18 91 08/16/18 04:00 1.0 08/15/18 18:00 Room Air I&O- Last 24 Hours up to 6 AM 08/21/18 06:00 Intake Total 580 ml Output Total 500 ml Balance 80 ml Laboratory Data 24H LABS Laboratory Tests 2 08/20/18 12:20: Bedside Glucose (Misc Panel) 282H 08/20/18 17:11: Bedside Glucose (Misc Panel) 167H 08/20/18 20:41: Bedside Glucose (Misc Panel) 325H 08/21/18 06:06: Immature Granulocyte % (Auto) 2.0, White Blood Count 12.5H, Red Blood Count 3.24L, Hemoglobin 9.6L, Hematocrit 30.5L, Mean Corpuscular Volume 94.1, Mean Corpuscular Hemoglobin 29.6, Mean Corpuscular Hemoglobin Concent 31.5L, Red Cell Distribution Width 15.1H, Platelet Count 226, Neutrophils (%) (Auto) 71.4H, Lymphocytes (%) (Auto) 16.4L, Monocytes (%) (Auto) 8.6H, Eosinophils (%) (Auto) 1.4, Basophils (%) (Auto) 0.2, Neutrophils # (Auto) 8.9H, Lymphocytes # (Auto) 2.1, Monocytes # (Auto) 1.1H, Eosinophils # (Auto) 0.2, Basophils # (Auto) 0.0, Nucleated Red Blood Cells % (auto) 0.2H, Anion Gap 9, Glomerular Filtration Rate 36.5, Blood Urea Nitrogen 28H, Creatinine 1.46H, Sodium Level 137, Potassium Level 4.5, Chloride Level 108H, Carbon Dioxide Level 20L, Calcium Level 8.0L CBC/BMP Laboratory Tests 08/21/18 06:06 Red Blood Count 3.24 L, Mean Corpuscular Volume 94.1, Mean Corpuscular Hemoglobin 29.6, Mean Corpuscular Hemoglobin Concent 31.5 L, Red Cell Distribution Width 15.1 H, Neutrophils (%) (Auto) 71.4 H, Lymphocytes (%) (Auto) 16.4 L, Monocytes (%) (Auto) 8.6 H, Eosinophils (%) (Auto) 1.4, Basophils (%) (Auto) 0.2, Neutrophils # (Auto) 8.9 H, Lymphocytes # (Auto) 2.1, Monocytes # (Auto) 1.1 H, Eosinophils # (Auto) 0.2, Basophils # (Auto) 0.0, Calcium Level 8.0 L Microbiology Microbiology 08/14/18 Stool Occult Blood (ELLEN) - Final, Complete 08/11/18 MRSA Screen - Final, Complete 08/11/18 Respiratory Virus Panel (PCR) (ELLEN) - Final, Complete GME ATTESTATION GME ATTESTATION My faculty preceptor for this patient encounter was physically present during the encounter and was fully available. All aspects of the patient interview, examination, medical decision making process, and medical care plan development were reviewed and approved by the faculty preceptor. The faculty preceptor is aware and concurs with the plan as stated in the body of this note and will attest to such by his/her cosignature. ATTENDING NOTE I saw and evaluated the patient. I agree with the findings and plan of care as documented in the resident's note KAVYA MORGAN DO August 21, 2018 11:39 AJAY SAXENA MD August 22, 2018 13:16
--- NOTE | 2018-08-21 14:29 | NUR ---
Recommend upgrade to level 2 mechanically altered (NDD) solids and continue thin liquids. Pt requires max assistance for upright positioning & PO intake. Recommend continue to provide preferred food items (toast, grilled cheese no crust) to encourage PO intake. Limit distractions and allow extra time for meal consumption. Provide Ensure and high calorie ice cream w/ every meal. Addendum: 08/21/[address] [facility] Amended: Links added.
[2018-08-21] MEDS: RAMELTEON 8 MG TAB (ROZEREM) PO SCH ×2 (21:00→21:42)
[2018-08-22 06:00] VITALS: BP 160/75
[2018-08-22 06:16] LABS: BASO % 0.2 % (0.0-1.0); EOS # 0.1 10^3/uL (0.0-0.50); EOS % 0.8 % (0.0-3.0); HEMATOCRIT 32.3 % (36.0-47.0); HEMOGLOBIN 10.3 g/dl (12.0-15.5); LYMPH # 1.5 10^3/uL (1.5-4.5); MEAN CORPUSCULAR HEMOGLOBIN 29.6 pg (27.0-33.0); MEAN CORPUSCULAR HGB CONC 31.9 g/dl (32.0-36.5); MEAN CORPUSCULAR VOLUME 92.8 fl (80.0-96.0); MONO % 7.2 % (0.0-5.0); NEUTROPHILS # 10.6 10^3/uL (1.8-7.7); NEUTROPHILS % 79.7 % (36.0-66.0); PLATELET COUNT, AUTOMATED 263 10^3/uL (150-450); RED BLOOD COUNT 3.48 10^6/uL (4.00-5.40); WHITE BLOOD COUNT 13.3 10^3/uL (4.0-10.0)
[2018-08-22 06:53] LABS: CALCIUM LEVEL 8.7 MG/DL (8.8-10.2); CREATININE FOR GFR 1.4 MG/DL (0.55-1.30); GLOMERULAR FILTRATION RATE 38.3 (>32); POTASSIUM SERUM 4.8 MEQ/L (3.5-5.1)
[2018-08-22 09:06] VITALS: BP 160/75
[2018-08-22] MEDS: ATORVASTATIN 20 MG TAB PO SCH (09:06)
[2018-08-22] MEDS: HumaLOG INSULIN (NovoLOG) PER UNIT SC SCH ×2 (09:06→12:00)
[2018-08-22] MEDS: ASPIRIN 81 MG ENTERIC TAB PO SCH (09:06)
[2018-08-22] MEDS: METOPROLOL SUCC *XL* 25MG TAB (TopROL *XL*) PO SCH (09:06)
[2018-08-22] MEDS: PANTOPRAZOLE 40MG TAB (PROTONIX) PO SCH (09:06)
--- NOTE | 2018-08-22 11:45 | DS.PDOC ---
Discharge Summary General Date of Admission August 10, 2018 at 15:32 Date of Discharge 08/22/18 Primary Care Physician: Daniel Perez Attending Physician: AJAY SAXENA MD Discharge Summary PROCEDURES PERFORMED DURING STAY: [None]. ADMITTING DIAGNOSES: 1. Acute metabolic Encephalopathy in setting of Chronic and progressive Alzhiemers Dementia 2. Acute on Chronic CKD with Uremic Encephalopathy 3. Hypernatremia/Dehydration 4. NSTEMI 5. HTN 6. AVR w/ bioprosthetic 7. HFpEF ~50%/ Grade 1 diastolic dysfunction 8. IDDM 9. DLP 10. Iron Deficiency Anemia/ B12 Deficiency 11. Osteoporosis 12. COPD 13. GERD DISCHARGE DIAGNOSES: 1. Acute metabolic Encephalopathy in setting of Chronic and progressive Alzhiemers Dementia 2. Acute on Chronic CKD with Uremic Encephalopathy 3. NSTEMI 4. NSVT 5. New onset Atrial Fibrillation 6. Acute blood loss anemia 2/2 Gastrointestinal Bleed 7. HTN 8. AVR w/ bioprosthetic 9. HFpEF ~50%/ Grade 1 diastolic dysfunction 10. IDDM 11. DLP 12. Iron Deficiency Anemia/ B12 Deficiency 13. Osteoporosis 14. COPD 15. GERD COMPLICATIONS/CHIEF COMPLAINT: Renal Failure Acute Or Chronic. HISTORY OF PRESENT ILLNESS: Patient is an 82 year old female with a past medical history significant for advanced Alzheimer dementia, CAD s/p CABG in 1998, AVR with bioprosthetic 2013, HfpEF ~50%, HTN, IDDM2, DLP, CK3 baseline Cr of 2.3 stage 4, Iron deficiency anemia, B12 deficiency, osteoporosis, and COPD who presented to the emergency department for two week history of decreased oral intake, lethargy, altered mental status, and weakness. The patient had originally presented to her PCP where she was felt to have a UTI. She was given macrodantin however did not show improvement and continued to worsen. She presented to the ER and was found to be severely dehydrated with hypernatremia, acute on chronic CKD stage 4, and elevated troponin. Patient was admitted to the hospital with acute uremic encephalopathy, acute on CKD5, hypernatremia, hyperglycemia, NSTEMI, and failure to thrive HOSPITAL COURSE: Once admitted patient was given IV hydration. During her hospitalization she developed new onset atrial fibrillation. Due to her NSTEMI she was started on lovenox. The patient appeared to be improving however, soon developed bloody stool and subsequently became hypotensive. The patient was found to likely have acute blood loss anemia secondary to a GI bleed. Her troponin continued to rise which was felt to be due to increased demand from hypotension. The patients family had declined colonoscopy and the patient was managed with fluids and blood transfusions. Her lovenox, aspirin, and plavix was placed on hold. The patient did appear to stabilized after fluids and blood transfusions. She became more alert and participated in physical therapy. DISCHARGE MEDICATIONS: Please see below. ALLERGIES: Please see below. PHYSICAL EXAMINATION ON DISCHARGE: VITAL SIGNS: Please see below. GENERAL: Awake and alert. She has advanced dementia. Lying in bed on side HEENT: Atraumatic, normocephalic. Eyes are nonicteric. Trachea is midline. Mucous membranes are pink and moist. NECK: No palpable cervical lymphadenopathy CARDIOVASCULAR EXAMINATION: Irregularly irregular rhythm. Normal rate. No clicks rubs or murmurs appreciated RESPIRATORY EXAMINATION: Diminished breath sounds throughout. Bibasilar crackles. No rhonci ABDOMINAL EXAMINATION: Soft, slightly distended. Nontender to palpation of all 4 quadrants. No rebound tenderness or guarding. Positive bowel sounds throughout EXTREMITIES: No edema. 2+ posterior tibial pulses bilaterally. 2+ radial pulses bilaterally SKIN: No rashes or lesions NEUROLOGICAL EXAMINATION: No focal neurological deficits PSYCHIATRIC EXAMINATION: Mood and affect appear appropriate LABORATORY DATA: Please see below. IMAGING: ABDOMINAL SERIES: Cross table lateral and supine films of the abdomen and pelvis demonstrate no definite evidence of free intraperitoneal air. Air is scattered throughout the GI tract in a nonspecific pattern without significant small bowel dilatation and no compelling evidence for small bowel obstruction. There are diffuse vascular calcifications. Degenerative changes of the spine are noted as well as metallic internal fixation in the proximal left femur. An accompanying view of the chest demonstrates no acute infiltrate. Heart is not significantly enlarged. There is calcification of the thoracic aorta. Multiple sternal wires are present. IMPRESSION: No evidence of free intraperitoneal air and no compelling evidence for small bowel obstruction. No infiltrate in either lung. Electronically Signed by Rolando Coello MD 08/11/2018 11:28 A EXAM: CT Head Without Contrast EXAM DATE/TIME: 08/10/2018 9:15 PM CLINICAL HISTORY: 82 years old, female; Signs and symptoms; Altered mental status/memory loss; Additional info: AMS TECHNIQUE: Imaging protocol: Axial computed tomography images of the head/brain without contrast. Radiation optimization: All CT scans at this facility use at least one of these dose optimization techniques: automated exposure control; mA and/or kV adjustment per patient size (includes targeted exams where dose is matched to clinical indication); or iterative reconstruction. COMPARISON: CT Head without contrast 05/29/2017 12:01 AM FINDINGS: Brain: Global cerebral atrophy is consistent with patient's age. Decreased attenuation within the white matter tracts of both cerebral hemispheres is nonspecific but typically seen with small vessel disease/chronic white matter ischemic changes of aging. No intracranial hemorrhage or mass effect. Ventricles: Mild ventriculomegaly, consistent with global cerebral atrophy. Bones/joints: Unremarkable. No acute fracture. Sinuses: Visualized sinuses are unremarkable. No acute sinusitis. Mastoid air cells: Visualized mastoid air cells are unremarkable. No mastoid effusion. Soft tissues: Unremarkable. Vasculature: Atherosclerosis of the cavernous carotid arteries. IMPRESSION: No acute abnormality. Electronically signed by: Edward Leiva On 08/10/2018 22:01:08 PM PORTABLE CHEST: AP portable view of the chest is performed and compared to a prior study of 05/30/2017 as well as other prior exams. There is mild cardiomegaly and vascular congestion. No acute infiltrate is seen bilaterally. There is calcification and tortuosity of the thoracic aorta. The mediastinal silhouette is unchanged. Multiple sternal wires are present. IMPRESSION: Mild cardiomegaly and vascular congestion. No acute infiltrate. Electronically Signed by Rolando Coello MD 08/11/2018 12:31 P Portable chest x-ray: Single view. History: Evaluate for pulmonary edema. Comparison study: August 11, 2018. Findings: EKG monitoring electrodes overlie the chest. The patient is status post what appears to be aortic valve replacement via median sternotomy. Left mediastinal clips are noted as before. Heart is not enlarged. Pulmonary vasculature is not increased. There is no evidence of pleural effusion or pulmonary edema. No focal infiltrate is seen. There is a skin fold overlying the lateral chest on the left inferiorly. The patient is rotated slightly to the left. Impression: Status post aortic valve replacement. Normal heart size. No evidence of pulmonary edema or pleural effusion. Electronically Signed by Antonino James MD 08/13/2018 10:43 A PROGNOSIS: Fair ACTIVITY: [As tolerated]. DIET: As tolerated DISCHARGE PLAN: Patient is to be discharged home with home health. The patient would benefit from a hospital bed outpatient as she requires the bed to be elevated more than 30 degrees most of the time secondary to a combination of her long standing congestive heart failuire, COPD, and likely obstructive sleep apnea. Additionally, she does require frequent changes in position. The patient should follow up with her primary care provider in 1-2 weeks. The patient has had a recent GI bleed and new onset atrial fibrillation. She is continued on aspirin 81 mg as her risk of bleeding is greater then her risk of stroke. She is to continue Metoprolol 25mg for rate control DISPOSITION: . DISCHARGE INSTRUCTIONS: 1. Follow-up with primary care provider in 1-2 weeks DISCHARGE CONDITION: [Stable]. TIME SPENT ON DISCHARGE: Greater than 45 minutes. Vital Signs/I&Os Vital Signs Date Time Temp Pulse Resp B/P (MAP) Pulse Ox O2 Delivery O2 Flow Rate FiO2 08/22/18 09:06 103 160/75 08/22/18 06:00 97.2 20 98 08/16/18 04:00 1.0 I&O- Last 24 Hours up to 6 AM 08/22/18 06:00 Intake Total 240 ml Output Total 0 ml Balance 240 ml Laboratory Data Labs 24H Laboratory Tests 2 08/21/18 17:12: Bedside Glucose (Misc Panel) 239H 08/21/18 21:26: Bedside Glucose (Misc Panel) 214H 08/22/18 06:06: Immature Granulocyte % (Auto) 1.1, White Blood Count 13.3H, Red Blood Count 3.48L, Hemoglobin 10.3L, Hematocrit 32.3L, Mean Corpuscular Volume 92.8, Mean Corpuscular Hemoglobin 29.6, Mean Corpuscular Hemoglobin Concent 31.9L, Red Cell Distribution Width 15.0H, Platelet Count 263, Neutrophils (%) (Auto) 79.7H, Lymphocytes (%) (Auto) 11.0L, Monocytes (%) (Auto) 7.2H, Eosinophils (%) (Auto) 0.8, Basophils (%) (Auto) 0.2, Neutrophils # (Auto) 10.6H, Lymphocytes # (Auto) 1.5, Monocytes # (Auto) 1.0H, Eosinophils # (Auto) 0.1, Basophils # (Auto) 0.0, Nucleated Red Blood Cells % (auto) 0.0, Anion Gap 9, Glomerular Filtration Rate 38.3, Blood Urea Nitrogen 26H, Creatinine 1.40H, Sodium Level 139, Potassium Level 4.8, Chloride Level 105, Carbon Dioxide Level 25, Calcium Level 8.7L CBC/BMP Laboratory Tests 08/22/18 06:06 Red Blood Count 3.48 L, Mean Corpuscular Volume 92.8, Mean Corpuscular Hemoglobin 29.6, Mean Corpuscular Hemoglobin Concent 31.9 L, Red Cell D istribution Width 15.0 H, Neutrophils (%) (Auto) 79.7 H, Lymphocytes (%) (Auto) 11.0 L, Monocytes (%) (Auto) 7.2 H, Eosinophils (%) (Auto) 0.8, Basophils (%) (Auto) 0.2, Neutrophils # (Auto) 10.6 H, Lymphocytes # (Auto) 1.5, Monocytes # (Auto) 1.0 H, Eosinophils # (Auto) 0.1, Basophils # (Auto) 0.0, Calcium Level 8.7 L FSBS Laboratory Tests Test 08/21/18 17:12 08/21/18 21:26 Range/Units Bedside Glucose (Misc Panel) 239 214 83-110 MG/DL Microbiology Microbiology 08/14/18 Stool Occult Blood (ELLEN) - Final, Complete Discharge Medications Scheduled Aspirin (Aspirin EC) 81 Mg Tab, 81 MG PO 3XW, (Reported) TAKE ON MONDAYS, WEDNESDAYS AND FRIDAYS IN THE MORNING Atorvastatin Calcium (Atorvastatin Calcium) 20 Mg Tablet, 40 MG PO DAILY Calcitriol (Rocaltrol) 0.5 Mcg Capsule, 0.5 MCG PO DAILY, (Reported) Insulin Glargine,Hum.rec.anlog (Toujeo Solostar) 300 Unit/Ml Inj, 22 UNITS SC DAILY, (Reported) Metoprolol Succinate (Metoprolol Succinate) 25 Mg Tab, 25 MG PO DAILY, (Reported) Pantoprazole Sodium (Pantoprazole Sodium) 40 Mg Tablet.dr, 40 MG PO BID Scheduled PRN Nitroglycerin (Nitroglycerin) 0.4 Mg Sub, 0.4 MG SL Q5MP PRN for CHEST PAIN, (Reported) Allergies Coded Allergies: Cephalosporins (Verified Allergy, Unknown, UNKNOWN REACTION, 08/10/18) Penicillins (Verified Allergy, Unknown, UNKNOWN REACTION, 08/10/18) Sulfa (Sulfonamide Antibiotics) (Verified Allergy, Unknown, UNKNOWN REACTION, 08/10/18) GME ATTESTATION GME ATTESTATION My faculty preceptor for this patient encounter was physically present during the encounter and was fully available. All aspects of the patient interview, examination, medical decision making process, and medical care plan development were reviewed and approved by the faculty preceptor. The faculty preceptor is aware and concurs with the plan as stated in the body of this note and will attest to such by his/her cosignature. ATTENDING NOTE I saw and evaluated the patient. I agree with the findings and plan of care as documented in the resident's note. I spent 45 minutes coordinating this patient's discharge. KAVYA MORGAN DO August 22, 2018 11:44 AJAY SAXENA MD August 22, 2018 13:23
[2018-08-22] MEDS ORDERED: PANT40TA3 PO (11:50)
[2018-08-22] MEDS ORDERED: ATOR1TAB21 PO (11:50)
== END 2018-08-22 13:35 | disposition home health service (06) | DRG 70 ==
LOC: M ED 13:19 → M ED INP 15:32 → M PCU 18:12 → M MS5PR 08-18 15:52
PROVIDERS: ADMIT General Practice; ATTEND Internal Medicine
PROC: 30233N1 Transfusion of Nonautologous Red Blood Cells into Peripheral Vein, Percutaneous Approach (ICD-10-PCS; principal; 2018-08-14)
DX: G93.41 Metabolic encephalopathy (principal); I21.4 Non-ST elevation (NSTEMI) myocardial infarction; E87.0 Hyperosmolality and hypernatremia; I50.32 Chronic diastolic (congestive) heart failure; I13.2 Hypertensive heart and chronic kidney disease with heart failure and with stage 5 chronic kidney disease, or end stage renal disease; N17.9 Acute kidney failure, unspecified; N18.5 Chronic kidney disease, stage 5; K92.2 Gastrointestinal hemorrhage, unspecified; E87.2 Acidosis; D62 Acute posthemorrhagic anemia; K21.9 Gastro-esophageal reflux disease without esophagitis; I48.91 Unspecified atrial fibrillation; E11.65 Type 2 diabetes mellitus with hyperglycemia; J44.9 Chronic obstructive pulmonary disease, unspecified; M81.0 Age-related osteoporosis without current pathological fracture; G30.9 Alzheimer's disease, unspecified; F02.80 Dementia in other diseases classified elsewhere, unspecified severity, without behavioral disturbance, psychotic disturbance, mood disturbance, and anxiety; Z95.1 Presence of aortocoronary bypass graft; E53.8 Deficiency of other specified B group vitamins; Z79.899 Other long term (current) drug therapy; Z88.0 Allergy status to penicillin; Z88.2 Allergy status to sulfonamides; K59.00 Constipation, unspecified; E78.5 Hyperlipidemia, unspecified; Z96.642 Presence of left artificial hip joint; Z96.651 Presence of right artificial knee joint; Z96.652 Presence of left artificial knee joint; Z79.82 Long term (current) use of aspirin; Z66 Do not resuscitate; I95.9 Hypotension, unspecified

== ENCOUNTER → 2018-09-09 | Outpatient (REF) | payer MEDICARE ==
[~2018-09-09] MED LIST changes: +ATOR1TAB21 PO; +HUMA100I5; +NITR25SU3 PO
[2018-09-09 10:38] LABS: HEMATOCRIT 33.6 % (36.0-47.0); HEMOGLOBIN 10.8 g/dl (12.0-15.5); MEAN CORPUSCULAR HGB CONC 32.1 g/dl (32.0-36.5); PLATELET COUNT, AUTOMATED 468 10^3/uL (150-450); RED BLOOD COUNT 3.86 10^6/uL (4.00-5.40)
[2018-09-09 10:58] LABS: ALBUMIN 3.3 GM/DL (3.2-5.2); BILIRUBIN,TOTAL 0.3 MG/DL (0.2-1.0); CALCIUM LEVEL 11.3 MG/DL (8.8-10.2); CREATININE FOR GFR 1.57 MG/DL (0.55-1.30); GLOMERULAR FILTRATION RATE 33.5 (>32); MAGNESIUM LEVEL 1.5 MG/DL (1.8-2.4); POTASSIUM SERUM 5.2 MEQ/L (3.5-5.1); TOTAL PROTEIN 7.1 GM/DL (6.4-8.2)
[2018-09-09 12:56] LABS: PTH INTACT 38.9 PG/ML (18.5-88.0)
== END ==
LOC: M SHH 10:21
PROVIDERS: ATTEND Internal Medicine
DX: N18.4 Chronic kidney disease, stage 4 (severe) (principal); Z87.19 Personal history of other diseases of the digestive system

== ENCOUNTER 2018-09-25 18:11 | Emergency (ER) | payer MEDICARE ==
[~2018-09-25] VITALS: Ht 152.4 cm; Wt 65.9 kg
[2018-09-25] MEDS ORDERED: PANT40TA3 PO (18:31)
[2018-09-25] MEDS ORDERED: HUMA100I5 SQ (18:31)
[2018-09-25] MEDS ORDERED: METH5TAB76 PO (18:31)
[2018-09-25 19:06] LABS: BASO % 0.2 % (0.0-1.0); EOS # 0.3 10^3/uL (0.0-0.50); EOS % 2.7 % (0.0-3.0); HEMATOCRIT 35.3 % (36.0-47.0); LYMPH # 2.7 10^3/uL (1.5-4.5); LYMPH % 23.9 % (24.0-44.0); MEAN CORPUSCULAR HEMOGLOBIN 27.1 pg (27.0-33.0); MEAN CORPUSCULAR HGB CONC 31.2 g/dl (32.0-36.5); MEAN CORPUSCULAR VOLUME 86.9 fl (80.0-96.0); MONO # 0.9 10^3/uL (0.0-0.8); MONO % 7.5 % (0.0-5.0); NEUTROPHILS # 7.5 10^3/uL (1.8-7.7); NEUTROPHILS % 65.4 % (36.0-66.0); PLATELET COUNT, AUTOMATED 369 10^3/uL (150-450); RED BLOOD COUNT 4.06 10^6/uL (4.00-5.40); WHITE BLOOD COUNT 11.5 10^3/uL (4.0-10.0)
[2018-09-25 19:11] LABS: VENOUS BASE EXCESS -4.5 (-2.0-2.0); VENOUS HCO3 22.5 MEQ/L (23.0-27.0); VENOUS O2 SATURATION 69.7 % (60.0-80.0); VENOUS PARTIAL PRESSURE CO2 49.5 mmHg (38.0-50.0); VENOUS PARTIAL PRESSURE O2 41.6 mmHg (30.0-50.0); VENOUS PH 7.275 UNITS (7.330-7.430); VENOUS STANDARD HCO3 20.2 MEQ/L
[2018-09-25 19:36] LABS: OSMOLALITY SERUM 332 MOSM/KG (280-301)
[2018-09-25 19:52] LABS: ALBUMIN 3.3 GM/DL (3.2-5.2); ALT/SGPT 20 U/L (12-78); BILIRUBIN,DIRECT < 0.1 MG/DL (0.0-0.2); BILIRUBIN,TOTAL 0.4 MG/DL (0.2-1.0); BLOOD UREA NITROGEN 75 MG/DL (7-18); CALCIUM LEVEL 11.4 MG/DL (8.8-10.2); CARBON DIOXIDE LEVEL 22 MEQ/L (21-32); CHLORIDE LEVEL 107 MEQ/L (98-107); CK-MB VALUE MASS 3.2 NG/ML (<3.6); CPK CREATINE PHOSPHOKINASE 242 U/L (26-192); CREATININE FOR GFR 2.06 MG/DL (0.55-1.30); GLOMERULAR FILTRATION RATE 24.5 (>32); GLUCOSE, FASTING 328 MG/DL (70-100); MB/CK RELATIVE INDEX 1.32 (< OR =4); SODIUM LEVEL 141 MEQ/L (136-145); TOTAL PROTEIN 7.2 GM/DL (6.4-8.2); TROPONIN I 0.08 NG/ML (< 0.10)
[2018-09-25] MEDS ORDERED: NS 1,000 ML IV ONE (20:30)
[2018-09-25] MEDS ORDERED: CIPR250T3 PO (21:20)
[2018-09-25] MEDS ORDERED: CIPROFLOXACIN 200 MG in APPROPRIATE DILUENT 1 EA IV ONE (21:30)
[2018-09-25 22:21] VITALS: BP 118/62
--- NOTE | 2018-09-26 07:30 | REP ---
CHEST, PORTABLE: AP portable view of the chest is performed and compared to a prior study of . There is no acute infiltrate or pulmonary edema. The heart is not significantly enlarged. There is calcification of the thoracic aorta. Multiple sternal wires are present. IMPRESSION: No acute infiltrate or pulmonary edema. Electronically Signed by Rolando Coello MD 09/26/2018 09:23 A
--- NOTE | 2018-09-26 10:24 | ECGEPIP ---
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
[2018-09-27] MEDS ORDERED: CIPR250T3 PO (08:42)
== END 2018-09-25 22:24 | disposition home or self-care (01) ==
LOC: M ED 18:11
DX: E86.0 Dehydration (principal); E11.9 Type 2 diabetes mellitus without complications; I11.0 Hypertensive heart disease with heart failure; I50.9 Heart failure, unspecified; J44.9 Chronic obstructive pulmonary disease, unspecified; F03.90 Unspecified dementia, unspecified severity, without behavioral disturbance, psychotic disturbance, mood disturbance, and anxiety; I25.2 Old myocardial infarction; Z79.899 Other long term (current) drug therapy; Z79.82 Long term (current) use of aspirin; Z79.4 Long term (current) use of insulin; Z88.0 Allergy status to penicillin; Z88.1 Allergy status to other antibiotic agents; Z88.2 Allergy status to sulfonamides
CPT/HCPCS: 71045; 80048; 80076; 81001; 82140; 82550; 82553; 82803; 83605; 83930; 84443; 84484; 85025; 87040; 87077; 87088; 87186; 93005; 93041; 96361; 96365; 99284; J0744

== ENCOUNTER → 2018-11-14 | Outpatient (REF) | payer MEDICARE ==
[~2018-11-14] MED LIST changes: -ARTI99.0 OU; +ARTIDRO2 OU; +CIPR250T3 PO; +CYAN100049 PO; +HUMA100I5 SQ; +METH5TAB76 PO; -VITA10002 PO
[2018-11-14 13:30] LABS: HEMATOCRIT 40.3 % (36.0-47.0); HEMOGLOBIN 12.3 g/dl (12.0-15.5); MEAN CORPUSCULAR HEMOGLOBIN 25.9 pg (27.0-33.0); MEAN CORPUSCULAR HGB CONC 30.5 g/dl (32.0-36.5); MEAN CORPUSCULAR VOLUME 84.8 fl (80.0-96.0); PLATELET COUNT, AUTOMATED 305 10^3/uL (150-450); RED BLOOD COUNT 4.75 10^6/uL (4.00-5.40); WHITE BLOOD COUNT 10.3 10^3/uL (4.0-10.0)
[2018-11-14 13:59] LABS: ALBUMIN 3.7 GM/DL (3.2-5.2); BILIRUBIN,TOTAL 0.5 MG/DL (0.2-1.0); CALCIUM LEVEL 11.7 MG/DL (8.8-10.2); CREATININE FOR GFR 2.57 MG/DL (0.55-1.30); MAGNESIUM LEVEL 2.2 MG/DL (1.8-2.4); POTASSIUM SERUM 4.5 MEQ/L (3.5-5.1); TOTAL PROTEIN 7.2 GM/DL (6.4-8.2)
[2018-11-14 14:09] LABS: PTH INTACT 54.3 PG/ML (18.5-88.0)
[2018-11-14 14:10] LABS: FOLATE 17.9 NG/ML
[2018-11-14 14:12] LABS: HEMOGLOBIN A1c 10.6 %
== END ==
LOC: M SFHCPLAZ 10:25
PROVIDERS: ATTEND Internal Medicine
DX: Z86.2 Personal history of diseases of the blood and blood-forming organs and certain disorders involving the immune mechanism (principal); I12.9 Hypertensive chronic kidney disease with stage 1 through stage 4 chronic kidney disease, or unspecified chronic kidney disease; E11.21 Type 2 diabetes mellitus with diabetic nephropathy; N18.4 Chronic kidney disease, stage 4 (severe); E53.8 Deficiency of other specified B group vitamins